=== PATIENT | male | born 1980 | race Hispanic/Latino ===

== ENCOUNTER 2023-12-28 09:30 | Inpatient (IN) | payer OTHER ==
[2023-12-28] VITALS (80 sets, daily range): BP systolic 82–200; BP diastolic 36–162; PULSE 65–101; RESP 10–34; TEMP 97.8–99.2; O2SAT 96–100
[~2023-12-28] VITALS: Ht 180.3 cm; Wt 68.9 kg
[2023-12-28] MEDS: ASPIRIN 325MG TAB PO ONE (09:55)
[2023-12-28 09:56] LABS: BASOPHILS # (AUTO) 0.06 K/uL (0.00-0.20); BASOPHILS % (AUTO) 0.7 % (0.0-5.0); EOSINOPHILS # (AUTO) 0.33 K/uL (0.00-0.70); EOSINOPHILS % (AUTO) 3.7 % (0.0-8.0); HEMATOCRIT 53.9 % (42-54); IMMATURE GRANULOCYTE ABSOLUTE 0.03 K/uL (0-1); LYMPHOCYTES # (AUTO) 1.3 K/uL (1.0-4.8); LYMPHOCYTES % (AUTO) 14.9 % (21.0-51.0); MEAN CORPUSCULAR HEMOGLOBIN 32.1 pg (27.0-33.0); MEAN CORPUSCULAR HGB CONC 33.2 g/dL (32.0-36.0); MEAN CORPUSCULAR VOLUME 96.6 fL (79-99); MONOCYTES # (AUTO) 0.8 K/uL (0.1-1.0); MONOCYTES % (AUTO) 9.1 % (3.0-13.0); NEUTROPHILS # (AUTO) 6.4 K/uL (1.8-7.7); NEUTROPHILS % (AUTO) 71.3 % (40.0-77.0); PLATELET COUNT (AUTO) 209 K/uL (130-400); RED BLOOD CELL COUNT(AUTO) 5.58 MIL/uL (4.50-6.20); RED CELL DISTRIBUTION WIDTH 12.9 % (11.0-15.5)
[2023-12-28] MEDS: LORAZEPAM 2 MG/ML 1 ML VIAL IVP ONE (09:56)
[2023-12-28 10:09] LABS: POTASSIUM 3.6 mmol/L (3.5-5.1)
[2023-12-28] MEDS ORDERED: LIDOCAINE HCL 400MG/20ML VIAL ONE (10:25)
[2023-12-28] MEDS ORDERED: LIDOCAINE PF 100MG/5ML (2%) SYRINGE 5ML ONE (10:25)
[2023-12-28] MEDS ORDERED: PROPOFOL 10 MG/ML 20ML VIAL IV ONE ×2 (10:25→12:08)
[2023-12-28] MEDS ORDERED: SUCCINYLCHOLINE CHLORIDE 20 MG/ML 10 ML VIAL ONE (10:25)
[2023-12-28] MEDS ORDERED: IOHEXOL 350 MG/ML 100ML INFUS..BTL IV ONE (10:26)
[2023-12-28] MEDS ORDERED: FENTANYL CITRATE PF 50 MCG/1 ML 2ML VIAL ONE (10:26)
[2023-12-28] MEDS ORDERED: HEPARIN 10,000 UNIT/10ML (1,000 UNIT/ML) VIAL ONE (10:26)
[2023-12-28] MEDS ORDERED: NITROGLYCERIN 50MG VIAL ONE (10:26)
[2023-12-28] MEDS ORDERED: IOHEXOL-350 75 ML VIAL IV ONE (10:26)
[2023-12-28] MEDS ORDERED: ROCURONIUM BROMIDE 10MG/1ML 5ML VL ONE ×2 (10:26→12:09)
[2023-12-28] MEDS ORDERED: NICARDIPINE 25MG INJ IV ONE (10:27)
[2023-12-28] MEDS ORDERED: SODIUM BICARB 50MEQ 50ML VIAL 50 ML ONE (10:28)
[2023-12-28] MEDS ORDERED: ONDANSETRON 4MG INJ ONE (10:33)
[2023-12-28 10:38] LABS: SARS-CoV-2, RNA, NAAT NEGATIVE SARS CoV-2 (NEGATIVE)
[2023-12-28 10:41] LABS: INFLUENZA TYPE A Negative For Type A (NEGATIVE); INFLUENZA TYPE B Negative For Type B (NEGATIVE)
[2023-12-28] MEDS ORDERED: DOPAMINE HCL 400 MG/D5%-WATER 0 ML IV ONE (10:45)
[2023-12-28] MEDS ORDERED: ATROPINE 1MG SYG IVP ONE (10:45)
[2023-12-28 10:54] LABS: B-TYPE NATRIURETIC PEPTIDE 625 pg/mL (0-100)
[2023-12-28] MEDS ORDERED: NOREPINEPHRINE BITARTRATE 1 MG/1 ML ML IV ONE (11:02)
[2023-12-28 11:48] LABS: INR 1.01 (0.85-1.15); PROTHROMBIN TIME 11.9 SEC (9.6-11.6)
[2023-12-28 11:50] LABS: PARTIAL THROMBOPLASTIN TIME 29.6 SEC (26.3-35.5)
[2023-12-28] MEDS: FUROSEMIDE 20MG VIAL ONE (13:51)
[2023-12-28] MEDS: ENALAPRILAT DIHYDRATE 1.25 MG/ML 2ML VIAL IVP ONE (13:51)
[2023-12-28] MEDS: PROPOFOL 1000 MG/100 ML IV STA (13:52)
[2023-12-28] MEDS: LABETALOL 20MG VIAL ONE (13:52)
[2023-12-28] MEDS: ENALAPRILAT DIHYDRATE 1.25 MG/ML 2ML VIAL IVP SCH (14:00)
[2023-12-28 14:17] LABS: ABG BASE EXCESS -6.1 mmol/L (-2.0-3.0); ABG HCO3 18.7 mmol/L (21.0-28.0); ABG OXYGEN SATURATION 94.8 % (95.0-99.0); ABG PCO2 35 mmHg (35-48); ABG PH 7.347 (7.35-7.450); CARBON MONOXIDE 2.3; HHb 5.1; VENT MODE, BG AC (ROOM AIR)
[2023-12-28 15:10] LABS: ALBUMIN 2.8 g/dL (3.5-5.0); BILIRUBIN,DIRECT 0.1 mg/dL (0.0-0.3); BILIRUBIN,TOTAL 0.6 mg/dL (0.2-1.0); THYROID STIMULATING HORMONE 2.08 uIU/mL (0.36-3.74); TOTAL PROTEIN, SERUM 5.6 g/dL (6.0-8.3)
[2023-12-28 15:24] LABS: APPEARANCE,URINE CLEAR (CLEAR); BILIRUBIN,URINE NEGATIVE (NEGATIVE); COLOR,URINE COLORLESS (YELLOW); GLUCOSE, URINE (UA) NEGATIVE (NEGATIVE); KETONES,URINE NEGATIVE (NEGATIVE); LEUKOCYTE ESTERASE ,URINE NEGATIVE Leu/uL (NEGATIVE); NITRATE,URINE NEGATIVE (NEGATIVE); OCCULT BLOOD,URINE MODERATE (NEGATIVE); PROTEIN,URINE NEGATIVE (NEGATIVE); UROBILINOGEN,URINE 0.2 mg/dL (0.2-1.0)
[2023-12-28] MEDS: SODIUM BICARB 50MEQ 50ML VIAL 50 ML ONE (15:30)
[2023-12-28] MEDS: FUROSEMIDE 20MG VIAL IV ONE (15:30)
[2023-12-28] MEDS: LABETALOL 20MG SYG IV ONE (15:30)
[2023-12-28] MEDS: SODIUM BICARB 50MEQ 50ML VIAL IV ONE (15:31)
[2023-12-28 15:37] LABS: ADD UA MICROSCOPIC YES
[2023-12-28 15:38] LABS: AMPHET/METH SCREEN,URINE NEGATIVE (NEGATIVE); BARBITURATE SCREEN, URINE NEGATIVE (NEGATIVE); BENZODIAZEPINES SCREEN,URINE NEGATIVE (NEGATIVE); CANNABINOID SCREEN,URINE NEGATIVE (NEGATIVE); COCAINE SCREEN,URINE POSITIVE (NEGATIVE); OPIATE SCREEN,URINE NEGATIVE (NEGATIVE); PHENCYCLIDINE SCREEN,URINE NEGATIVE (NEGATIVE)
[2023-12-28 15:46] LABS: SQUAMOUS EPITHELIAL CELL,UR RARE /HPF (0-2); WBC,URINE 0-1 /HPF (0-1)
[2023-12-28 16:08] LABS: HEMOGLOBIN A1C 5.5 % (4.0-6.0)
[2023-12-28] MEDS: PROPOFOL 1000 MG/100 ML IV PRN (17:27)
[2023-12-28] MEDS: MIDAZOLAM 50MG-0.9% NS 50ML 50 ML IV SCH (17:27)
[2023-12-28] MEDS: POTASSIUM CHLORIDE 20MEQ/100ML 100 ML IV PRN (18:46)
[2023-12-28] MEDS: BUDESONIDE 0.5 MG/2 ML INH IH SCH (19:19)
[2023-12-28] MEDS ORDERED: FUROSEMIDE 20MG VIAL IV ONE (20:00)
[2023-12-28] MEDS ORDERED: FUROSEMIDE 20MG VIAL IV SCH (20:00)
[2023-12-28] MEDS: FAMOTIDINE 20MG VIAL IV SCH (20:34)
[2023-12-28 21:23] LABS: CREATININE 0.8 mg/dL (0.5-1.3); MAGNESIUM 1.8 mg/dL (1.80-2.40); POTASSIUM 3.7 mmol/L (3.5-5.1)
[2023-12-29] VITALS (105 sets, daily range): BP systolic 110–167; BP diastolic 69–117; PULSE 64–112; RESP 14–50; TEMP 98.3–98.6; O2SAT 93–100
[2023-12-29] MEDS: HEPARIN 5,000 UNIT VIAL SQ SCH (04:15)
[2023-12-29] MEDS: CHLORHEXIDINE GLUCONATE 15 ML MOUTHWASH MM SCH (04:15)
[2023-12-29 04:34] LABS: HEMATOCRIT 46.3 % (42-54); MEAN CORPUSCULAR HEMOGLOBIN 32.8 pg (27.0-33.0); MEAN CORPUSCULAR HGB CONC 32.4 g/dL (32.0-36.0); MEAN CORPUSCULAR VOLUME 101.3 fL (79-99); RED BLOOD CELL COUNT(AUTO) 4.57 MIL/uL (4.50-6.20); RED CELL DISTRIBUTION WIDTH 13.1 % (11.0-15.5); WHITE BLOOD COUNT (AUTO) 11.9 K/uL (4.8-10.8)
[2023-12-29 04:48] LABS: ALBUMIN 2.8 g/dL (3.5-5.0); BILIRUBIN,DIRECT 0.1 mg/dL (0.0-0.3); BILIRUBIN,TOTAL 0.8 mg/dL (0.2-1.0); CREATININE 1.2 mg/dL (0.5-1.3); MAGNESIUM 1.9 mg/dL (1.80-2.40); POTASSIUM 3.7 mmol/L (3.5-5.1); TOTAL PROTEIN, SERUM 5.6 g/dL (6.0-8.3)
[2023-12-29 07:57] LABS: ABG BASE EXCESS -3.9 mmol/L (-2.0-3.0); ABG HCO3 20.8 mmol/L (21.0-28.0); ABG OXYGEN SATURATION 98.6 % (95.0-99.0); ABG PCO2 37 mmHg (35-48); ABG PH 7.366 (7.35-7.450); DEVICE COMMENT ISAAC RN; PO2, ARTERIAL BG 133.4 mmHg (83.0-108.0); VENT MODE, BG AC (ROOM AIR)
[2023-12-29] MEDS ORDERED: METOPROLOL TARTRATE 1 MG/ML 5ML VIAL IV PRN (10:30)
[2023-12-29] MEDS: METOPROLOL TARTRATE 1 MG/ML 5ML VIAL IV ONE (11:43)
[2023-12-29] MEDS: FUROSEMIDE 20MG VIAL IV ONE (11:43)
[2023-12-29] MEDS ORDERED: IOHEXOL 350 MG/ML 100ML INFUS..BTL IV ONE (13:58)
[2023-12-29] MEDS: CLONAZEPAM 1MG TAB PO PRN (18:57)
[2023-12-29] MEDS: FUROSEMIDE 20MG VIAL IV SCH (18:57)
[2023-12-29] MEDS: ACETAMINOPHEN 650 MG/20.3 ML UDCUP NG PRN (20:03)
[2023-12-29] MEDS: ARTIFICIAL TEARS 3.5 GM OINTMENT OU SCH (20:47)
[2023-12-29] MEDS ORDERED: PHARMACY COMMUNICATION MISC PRN (21:30)
[2023-12-29] MEDS: POTASSIUM CHLORIDE 10% ELIXIR 20 MEQ/15 ML UDCUP PO PRN (21:37)
[2023-12-29] MEDS: GABAPENTIN 300 MG CAPSULE PO SCH (21:43)
[2023-12-29] MEDS: CHLORDIAZEPOXIDE HCL 25 MG CAP PO PRN (23:12)
[2023-12-30] VITALS (37 sets, daily range): BP systolic 126–170; BP diastolic 82–115; PULSE 77–97; RESP 13–25; TEMP 98.4–98.5; O2SAT 97–98
[2023-12-30 00:59] LABS: MAGNESIUM 1.9 mg/dL (1.80-2.40); PHOSPHORUS 4.2 mg/dL (2.5-4.9); POTASSIUM 3.9 mmol/L (3.5-5.1)
[2023-12-30] MEDS: MAGNESIUM 2GM PREMIX 50ML 50 ML IV SCH (02:10)
[2023-12-30] MEDS: POTASSIUM CHLORIDE 10MEQ SR TAB PO ONE (02:10)
[2023-12-30] MEDS: ACETAMINOPHEN 500 MG TABLET PO PRN (02:11)
[2023-12-30] MEDS: CHLORDIAZEPOXIDE HCL 25 MG CAP PO PRN (02:22)
[2023-12-30] MEDS: KCL 20 MEQ ERTAB PO PRN (07:41)
[2023-12-30] MEDS ORDERED: CALCIUM CARB 500MG CHEW TAB PO PRN (09:00)
[2023-12-30] MEDS: FAMOTIDINE 20MG TAB PO SCH (09:00)
[2023-12-30] MEDS: SIMETHICONE 80 MG TAB.CHEW PO SCH (09:29)
[2023-12-30] MEDS: METOPROLOL TARTRATE 25 MG TAB PO SCH (09:29)
[2023-12-30] MEDS: LISINOPRIL 10 MG TABLET PO SCH (09:29)
[2023-12-30] MEDS: AMIODARONE 200 MG TABLET PO SCH (12:05)
[2023-12-30] MEDS: POLYETHYLENE GLYCOL 3350 17 GM POWD.PACK PO SCH (12:08)
[2023-12-30 12:34] LABS: CREATININE 1.1 mg/dL (0.5-1.3); MAGNESIUM 2.2 mg/dL (1.80-2.40); POTASSIUM 3.8 mmol/L (3.5-5.1)
[2023-12-30] MEDS: IPRATROPIUM 0.5 MG/2.5 ML INH IH PRN (15:42)
[2023-12-30] MEDS: LORAZEPAM 2 MG/ML 1 ML VIAL IVP PRN (16:08)
[2023-12-30] MEDS: DOCUSATE NA 100MG/10ML UDCUP PO SCH (20:23)
[2023-12-31] VITALS (10 sets, daily range): BP systolic 105–127; BP diastolic 74–93; PULSE 63–82; RESP 16–22; O2SAT 98
[2023-12-31 04:55] LABS: BASOPHILS # (AUTO) 0.05 K/uL (0.00-0.20); BASOPHILS % (AUTO) 0.6 % (0.0-5.0); EOSINOPHILS # (AUTO) 0.43 K/uL (0.00-0.70); EOSINOPHILS % (AUTO) 5.3 % (0.0-8.0); HEMATOCRIT 49.4 % (42-54); IMMATURE GRANULOCYTE ABSOLUTE 0.04 K/uL (0-1); LYMPHOCYTES # (AUTO) 1.5 K/uL (1.0-4.8); LYMPHOCYTES % (AUTO) 18.2 % (21.0-51.0); MEAN CORPUSCULAR HEMOGLOBIN 32.1 pg (27.0-33.0); MEAN CORPUSCULAR VOLUME 97.4 fL (79-99); MONOCYTES # (AUTO) 0.9 K/uL (0.1-1.0); MONOCYTES % (AUTO) 11.5 % (3.0-13.0); NEUTROPHILS # (AUTO) 5.2 K/uL (1.8-7.7); NEUTROPHILS % (AUTO) 63.9 % (40.0-77.0); PLATELET COUNT (AUTO) 136 K/uL (130-400); RED BLOOD CELL COUNT(AUTO) 5.07 MIL/uL (4.50-6.20); RED CELL DISTRIBUTION WIDTH 12.6 % (11.0-15.5); WHITE BLOOD COUNT (AUTO) 8.1 K/uL (4.8-10.8)
[2023-12-31 05:08] LABS: CREATININE 1.4 mg/dL (0.5-1.3); MAGNESIUM 2.1 mg/dL (1.80-2.40); POTASSIUM 3.7 mmol/L (3.5-5.1)
[2023-12-31 05:43] LABS: B-TYPE NATRIURETIC PEPTIDE 412 pg/mL (0-100)
[2023-12-31 06:38] LABS: APPEARANCE,URINE CLEAR (CLEAR); BILIRUBIN,URINE NEGATIVE (NEGATIVE); COLOR,URINE YELLOW (YELLOW); GLUCOSE, URINE (UA) NEGATIVE (NEGATIVE); KETONES,URINE NEGATIVE (NEGATIVE); LEUKOCYTE ESTERASE ,URINE 25 Leu/uL (NEGATIVE); NITRATE,URINE NEGATIVE (NEGATIVE); OCCULT BLOOD,URINE MODERATE (NEGATIVE); PH,URINE 5.5 (5.0-8.0); PROTEIN,URINE 20 mg/dL (NEGATIVE)
[2023-12-31 07:27] LABS: BACTERIA,URINE FEW /HPF (None Seen); MUCUS,URINE RARE LPF (None Seen); RBC,URINE TNTC /HPF (0-1); SQUAMOUS EPITHELIAL CELL,UR RARE /HPF (0-2)
[2023-12-31] MEDS: FUROSEMIDE 20MG VIAL IV SCH (20:56)
[2023-12-31] MEDS: GABAPENTIN 100 MG CAPSULE PO PRN (20:57)
[2023-12-31] MEDS: ONDANSETRON 4MG INJ IV PRN (23:34)
[2024-01-01] VITALS (8 sets, daily range): BP systolic 98–130; BP diastolic 70–93; PULSE 63–88; RESP 18–20; O2SAT 98–99
[2024-01-01] MEDS: OLANZAPINE 10MG/ML 1ML VIAL IM ONE (15:36)
[2024-01-01] MEDS: OLANZAPINE ODT 5 MG TAB SL SCH (16:34)
[2024-01-02] VITALS (11 sets, daily range): BP systolic 91–125; BP diastolic 57–82; PULSE 63–82; RESP 17–20; O2SAT 21–99
[2024-01-02] MEDS: EMPAGLIFLOZIN 10MG TABLET PO SCH (11:36)
[2024-01-02] MEDS: SPIRONOLACTONE 25 MG TAB PO SCH (11:37)
[2024-01-02] MEDS: LORAZEPAM 2 MG/ML 1 ML VIAL IVP PRN (13:00)
[2024-01-02] MEDS ORDERED: DIAZEPAM 5 MG/ML 2 ML SYG IVP PRN ×2 (18:00)
[2024-01-03 00:51] VITALS: BP 102/58; PULSE 70; RESP 18
[2024-01-03 03:27] VITALS: BP 100/62; PULSE 60; RESP 18
[2024-01-03 07:09] VITALS: PULSE 60; RESP 19; O2SAT 95
[2024-01-03 07:33] VITALS: BP 106/62; PULSE 72; RESP 17
[2024-01-03 08:00] VITALS: O2SAT 97
[2024-01-03 08:32] LABS: CREATININE 1.1 mg/dL (0.5-1.3); POTASSIUM 3.9 mmol/L (3.5-5.1)
[2024-01-03] MEDS ORDERED: FUROSEMIDE 20 MG TABLET PO SCH (09:00)
[2024-01-03 12:09] VITALS: BP 108/62; PULSE 78; RESP 17
[2024-01-04] MEDS ORDERED: FUROSEMIDE 40 MG TABLET PO SCH (09:00)
== END 2024-01-03 15:30 | DRG 280 ==
LOC: EDH 09:30 → EDHIP 09:31 → 2CV 12:00 → 2CH 12-29 14:53 → 2AH 12-30 13:40
PROVIDERS: ADMIT Internal Medicine; ATTEND Internal Medicine
PROC: 4A023N6 Measurement of Cardiac Sampling and Pressure, Right Heart, Percutaneous Approach (ICD-10-PCS; principal; 2023-12-28)
PROC: B2111ZZ Fluoroscopy of Multiple Coronary Arteries using Low Osmolar Contrast (ICD-10-PCS; 2023-12-28)
DX: I21.09 ST elevation (STEMI) myocardial infarction involving other coronary artery of anterior wall (principal); I50.43 Acute on chronic combined systolic (congestive) and diastolic (congestive) heart failure; J96.01 Acute respiratory failure with hypoxia; R57.0 Cardiogenic shock; I42.8 Other cardiomyopathies; F10.139 Alcohol abuse with withdrawal, unspecified; G81.94 Hemiplegia, unspecified affecting left nondominant side; R45.851 Suicidal ideations; Z59.00 Homelessness unspecified; I11.0 Hypertensive heart disease with heart failure; Z20.822 Contact with and (suspected) exposure to COVID-19; E78.5 Hyperlipidemia, unspecified; F14.10 Cocaine abuse, uncomplicated; F29 Unspecified psychosis not due to a substance or known physiological condition; I25.10 Atherosclerotic heart disease of native coronary artery without angina pectoris; I25.2 Old myocardial infarction; Z72.0 Tobacco use; Z95.810 Presence of automatic (implantable) cardiac defibrillator; Z91.148 Patient's other noncompliance with medication regimen for other reason
CPT/HCPCS: 36415; 70450; 70496; 70498; 71045; 74018; 76376; 80048; 80061; 80076; 80305; 81001; 82306; 82330; 82435; 82550; 82803; 82947; 82948; 83036; 83605; 83735; 83880; 84100; 84132; 84295; 84425; 84443; 84484; 85018; 85025; 85027; 85610; 85730; 87040; 87088; 87635; 87804; 93005; 93306; 93356; 93456; 94002; 94003; 94640; 94664; 99291; C1894; G0378; J0330; J0461; J1265; J1644; J1940; J2001; J2060; J2405; J2704; J3010; J3475; J3480; J3490; Q9967; A9900; C1769; Q9965

== ENCOUNTER 2024-03-08 11:40 | Inpatient (IN) | payer SELFPAY ==
[~2024-03-08] VITALS: Ht 180.3 cm; Wt 69.5 kg
[2024-03-08 12:32] LABS: BASOPHILS # (AUTO) 0.07 K/uL (0.00-0.20); BASOPHILS % (AUTO) 0.8 % (0.0-5.0); EOSINOPHILS # (AUTO) 0.39 K/uL (0.00-0.70); EOSINOPHILS % (AUTO) 4.6 % (0.0-8.0); HEMATOCRIT 50.4 % (42-54); IMMATURE GRANULOCYTE ABSOLUTE 0.11 K/uL (0-1); LYMPHOCYTES # (AUTO) 1.5 K/uL (1.0-4.8); LYMPHOCYTES % (AUTO) 17.3 % (21.0-51.0); MEAN CORPUSCULAR HGB CONC 33.9 g/dL (32.0-36.0); MEAN CORPUSCULAR VOLUME 94.2 fL (79-99); MONOCYTES # (AUTO) 0.7 K/uL (0.1-1.0); MONOCYTES % (AUTO) 8.6 % (3.0-13.0); NEUTROPHILS # (AUTO) 5.7 K/uL (1.8-7.7); NEUTROPHILS % (AUTO) 67.4 % (40.0-77.0); PLATELET COUNT (AUTO) 228 K/uL (130-400); RED BLOOD CELL COUNT(AUTO) 5.35 MIL/uL (4.50-6.20); RED CELL DISTRIBUTION WIDTH 13.6 % (11.0-15.5); WHITE BLOOD COUNT (AUTO) 8.5 K/uL (4.8-10.8)
[2024-03-08] MEDS: ASPIRIN 325MG TAB PO ONE (12:36)
[2024-03-08] MEDS: CLONIDINE HCL 0.1 MG TABLET PO ONE (12:48)
[2024-03-08 12:50] LABS: CREATININE 0.9 mg/dL (0.5-1.3); POTASSIUM 4.4 mmol/L (3.5-5.1)
[2024-03-08 12:57] LABS: B-TYPE NATRIURETIC PEPTIDE 739 pg/mL (0-100)
[2024-03-08 12:58] LABS: MAGNESIUM 2.1 mg/dL (1.80-2.40)
[2024-03-08] MEDS: FUROSEMIDE 20MG VIAL IV ONE (13:27)
[2024-03-08] MEDS: FUROSEMIDE 20MG VIAL ONE (13:44)
[2024-03-08 13:50] LABS: APPEARANCE,URINE CLEAR (CLEAR); BILIRUBIN,URINE NEGATIVE (NEGATIVE); COLOR,URINE LIGHT-YELLOW (YELLOW); GLUCOSE, URINE (UA) NEGATIVE (NEGATIVE); KETONES,URINE NEGATIVE (NEGATIVE); LEUKOCYTE ESTERASE ,URINE NEGATIVE Leu/uL (NEGATIVE); NITRATE,URINE NEGATIVE (NEGATIVE); OCCULT BLOOD,URINE NEGATIVE (NEGATIVE); PROTEIN,URINE NEGATIVE (NEGATIVE); UROBILINOGEN,URINE 0.2 mg/dL (0.2-1.0)
[2024-03-08 13:56] LABS: ADD UA MICROSCOPIC NO
[2024-03-08 13:58] LABS: AMPHET/METH SCREEN,URINE NEGATIVE (NEGATIVE); BARBITURATE SCREEN, URINE NEGATIVE (NEGATIVE); BENZODIAZEPINES SCREEN,URINE NEGATIVE (NEGATIVE); CANNABINOID SCREEN,URINE NEGATIVE (NEGATIVE); COCAINE SCREEN,URINE POSITIVE (NEGATIVE); OPIATE SCREEN,URINE NEGATIVE (NEGATIVE); PHENCYCLIDINE SCREEN,URINE NEGATIVE (NEGATIVE)
[2024-03-08] MEDS ORDERED: POTASSIUM CHLORIDE 20MEQ/100ML 100 ML IV PRN (15:30)
[2024-03-08] MEDS ORDERED: MAGNESIUM 2GM PREMIX 50ML 50 ML IV PRN (15:30)
[2024-03-08] MEDS ORDERED: POTASSIUM CHLORIDE 10% ELIXIR 20 MEQ/15 ML UDCUP PO PRN (15:30)
[2024-03-08] MEDS: LISINOPRIL 10 MG TABLET PO ONE (16:37)
[2024-03-08] MEDS: NITROGLYCERIN 1GM OINT 1 INCH/1GM TD ONE (16:40)
[2024-03-08] MEDS: FUROSEMIDE 40MG VIAL IV SCH (17:52)
[2024-03-08] MEDS: LACTULOSE 20 GM/30 ML UDCUP PO ONE (19:22)
[2024-03-08] MEDS ORDERED: carVEDIlol 3.125 MG TABLET PO SCH (21:00)
[2024-03-08] MEDS: LORazepam 2 MG/ML 1 ML VIAL IVP ONE (21:18)
[2024-03-08] MEDS ORDERED: PHARMACY COMMUNICATION MISC PRN (23:00)
[2024-03-09] VITALS (8 sets, daily range): BP systolic 103–136; BP diastolic 76–92; PULSE 76–95; RESP 15–22; O2SAT 98–100
[2024-03-09] MEDS: chlordiazePOXIDE HCL 25 MG CAP PO PRN (03:06)
[2024-03-09 07:04] LABS: BASOPHILS # (AUTO) 0.05 K/uL (0.00-0.20); BASOPHILS % (AUTO) 0.7 % (0.0-5.0); EOSINOPHILS # (AUTO) 0.34 K/uL (0.00-0.70); EOSINOPHILS % (AUTO) 4.6 % (0.0-8.0); HEMATOCRIT 48.5 % (42-54); IMMATURE GRANULOCYTE ABSOLUTE 0.09 K/uL (0-1); LYMPHOCYTES # (AUTO) 1.2 K/uL (1.0-4.8); LYMPHOCYTES % (AUTO) 16.9 % (21.0-51.0); MEAN CORPUSCULAR HEMOGLOBIN 32.3 pg (27.0-33.0); MEAN CORPUSCULAR HGB CONC 34.2 g/dL (32.0-36.0); MEAN CORPUSCULAR VOLUME 94.4 fL (79-99); MONOCYTES # (AUTO) 0.9 K/uL (0.1-1.0); MONOCYTES % (AUTO) 11.6 % (3.0-13.0); NEUTROPHILS # (AUTO) 4.8 K/uL (1.8-7.7); PLATELET COUNT (AUTO) 212 K/uL (130-400); RED BLOOD CELL COUNT(AUTO) 5.14 MIL/uL (4.50-6.20); RED CELL DISTRIBUTION WIDTH 13.6 % (11.0-15.5); WHITE BLOOD COUNT (AUTO) 7.3 K/uL (4.8-10.8)
[2024-03-09 07:25] LABS: B-TYPE NATRIURETIC PEPTIDE 311 pg/mL (0-100)
[2024-03-09 07:37] LABS: CREATININE 1.2 mg/dL (0.5-1.3); POTASSIUM 3.5 mmol/L (3.5-5.1)
[2024-03-09] MEDS: LISINOPRIL 10 MG TABLET PO SCH (09:17)
[2024-03-09] MEDS: KCL 20 MEQ ERTAB PO PRN (09:18)
[2024-03-09] MEDS: LACTULOSE 20 GM/30 ML UDCUP PO PRN (11:51)
[2024-03-09] MEDS: EMPAGLIFLOZIN 10MG TABLET PO ONE (15:35)
[2024-03-09] MEDS: AMIOdarone 200 MG TABLET PO ONE (15:35)
[2024-03-09] MEDS: SPIRONOLACTONE 25 MG TAB PO ONE (15:35)
[2024-03-09] MEDS: AMIOdarone 200 MG TABLET PO SCH (20:29)
[2024-03-10] MEDS: LORazepam 2 MG/ML 1 ML VIAL IVP PRN (03:49)
[2024-03-10 03:54] VITALS: BP 140/105; PULSE 90; RESP 19
[2024-03-10 04:48] LABS: HEMATOCRIT 46.3 % (42-54); MEAN CORPUSCULAR HEMOGLOBIN 32.3 pg (27.0-33.0); MEAN CORPUSCULAR HGB CONC 33.9 g/dL (32.0-36.0); MEAN CORPUSCULAR VOLUME 95.3 fL (79-99); RED BLOOD CELL COUNT(AUTO) 4.86 MIL/uL (4.50-6.20); RED CELL DISTRIBUTION WIDTH 13.7 % (11.0-15.5); WHITE BLOOD COUNT (AUTO) 8.6 K/uL (4.8-10.8)
[2024-03-10 05:00] LABS: CREATININE 1.5 mg/dL (0.5-1.3); POTASSIUM 3.7 mmol/L (3.5-5.1)
[2024-03-10 08:00] VITALS: BP 133/97; PULSE 82; RESP 18; O2SAT 100
[2024-03-10] MEDS: AMIOdarone 200 MG TABLET PO SCH (08:04)
[2024-03-10] MEDS: EMPAGLIFLOZIN 10MG TABLET PO SCH (08:04)
[2024-03-10] MEDS: SPIRONOLACTONE 25 MG TAB PO SCH (08:05)
[2024-03-10 12:00] VITALS: BP 111/65; PULSE 66; RESP 16
[2024-03-10] MEDS ORDERED: COMPOUND IV REFRIGERATED 1 EACH IVSOLN MISC PRN (12:30)
[2024-03-10] MEDS ORDERED: COMPOUND IV MISC 1 EACH IVSOLN MISC PRN (12:30)
[2024-03-10 16:00] VITALS: BP 115/79; PULSE 75; RESP 20
[2024-03-10 19:00] VITALS: BP 116/81; PULSE 71; RESP 20
[2024-03-10 21:20] VITALS: O2SAT 99
[2024-03-11] VITALS: BP 117/89; PULSE 74; RESP 20
[2024-03-11] MEDS ORDERED: acetaMINOPHEN 500 MG TABLET PO PRN (01:30)
[2024-03-11 04:00] VITALS: BP 113/80; PULSE 60; RESP 20
[2024-03-11 08:00] VITALS: BP 112/81; PULSE 68; RESP 14; O2SAT 100
[2024-03-11] MEDS: FUROSEMIDE 40MG VIAL IV SCH (08:40)
[2024-03-11] MEDS: THIAMINE HCL 100 MG/ML 2ML VIAL IVP SCH (08:40)
[2024-03-11] MEDS ORDERED: FOLIC ACID 5 MG/ML VIAL IV SCH (09:00)
[2024-03-11] MEDS ORDERED: AMIO200T44 PO (09:21)
[2024-03-11] MEDS ORDERED: EMPA10TA PO (09:21)
[2024-03-11] MEDS ORDERED: LISI10TA24 PO (09:21)
[2024-03-11] MEDS ORDERED: FURO40TA7 PO (09:21)
[2024-03-11 09:28] LABS: BASOPHILS # (AUTO) 0.05 K/uL (0.00-0.20); BASOPHILS % (AUTO) 0.7 % (0.0-5.0); EOSINOPHILS # (AUTO) 0.32 K/uL (0.00-0.70); EOSINOPHILS % (AUTO) 4.5 % (0.0-8.0); HEMATOCRIT 53.3 % (42-54); IMMATURE GRANULOCYTE ABSOLUTE 0.05 K/uL (0-1); LYMPHOCYTES # (AUTO) 1.2 K/uL (1.0-4.8); LYMPHOCYTES % (AUTO) 16.7 % (21.0-51.0); MEAN CORPUSCULAR HEMOGLOBIN 31.8 pg (27.0-33.0); MEAN CORPUSCULAR HGB CONC 32.6 g/dL (32.0-36.0); MEAN CORPUSCULAR VOLUME 97.3 fL (79-99); MONOCYTES # (AUTO) 0.6 K/uL (0.1-1.0); MONOCYTES % (AUTO) 7.9 % (3.0-13.0); NEUTROPHILS # (AUTO) 4.9 K/uL (1.8-7.7); NEUTROPHILS % (AUTO) 69.5 % (40.0-77.0); PLATELET COUNT (AUTO) 217 K/uL (130-400); RED BLOOD CELL COUNT(AUTO) 5.48 MIL/uL (4.50-6.20); RED CELL DISTRIBUTION WIDTH 13.6 % (11.0-15.5); WHITE BLOOD COUNT (AUTO) 7.1 K/uL (4.8-10.8)
[2024-03-11 09:41] LABS: CREATININE 1.4 mg/dL (0.5-1.3); MAGNESIUM 2.3 mg/dL (1.80-2.40); POTASSIUM 3.5 mmol/L (3.5-5.1)
== END 2024-03-11 13:00 | disposition home or self-care (01) | DRG 291 ==
LOC: EDH 11:40 → EDHIP 15:24 → 4CH 03-09 02:23
PROVIDERS: ADMIT Internal Medicine; ATTEND Internal Medicine
DX: I11.0 Hypertensive heart disease with heart failure (principal); I50.41 Acute combined systolic (congestive) and diastolic (congestive) heart failure; Z59.00 Homelessness unspecified; I47.20 Ventricular tachycardia, unspecified; I42.8 Other cardiomyopathies; F12.10 Cannabis abuse, uncomplicated; F19.10 Other psychoactive substance abuse, uncomplicated; F14.10 Cocaine abuse, uncomplicated; Z59.7 Insufficient social insurance and welfare support; Z59.86 Financial insecurity; Z79.84 Long term (current) use of oral hypoglycemic drugs; Z79.899 Other long term (current) drug therapy; Z95.810 Presence of automatic (implantable) cardiac defibrillator
CPT/HCPCS: 36415; 71045; 74176; 80048; 80305; 81003; 82550; 83605; 83690; 83735; 83880; 84145; 84443; 84484; 85025; 85027; 85378; 85730; 87040; 93005; 93306; 93356; G0378; J1940; J2060; J3411; J3490

== ENCOUNTER 2024-07-23 20:35 | Emergency (ER) | payer BC, OTHER ==
[~2024-07-23] VITALS: Ht 177.8 cm; Wt 72.1 kg
[~2024-07-23 20:35] MED LIST: AMIO200T68 PO; DAPA10TA PO; FURO40TA5 PO; LISI10TA24 PO
[2024-07-23 21:13] VITALS: TEMP 97.7
--- NOTE | 2024-07-23 21:42 | EKG ---
[facility] Test Date: 2024-07-23 Test Time: 21:30:11 Pat Name: GOLDIE CUNNINGHAM Department: ED Room: Gender: M Manager Cafe: [id number] : 1980 Requested By: ARISTIDES HENRY Order Number: [id number] Reading MD: Bennie Kimble Measurements Intervals [place] Rate: 93 P: 61 [place]: 143 QRS: 26 QRSD: 116 T: 190 QT: 408 QTc: 510 Interpretive Statements Sinus rhythm Biatrial enlargement Left ventricular hypertrophy Anterior infarct, old Abnormal T, consider ischemia, diffuse leads Prolonged QT interval Electronically Signed On 07-25-2024 12:16:03 UNBUNDLER by Bennie Kimble Please click the below link to view image of tracing.
[2024-07-23 22:04] LABS: BASOPHILS # (AUTO) 0.05 K/uL (0.00-0.20); BASOPHILS % (AUTO) 0.6 % (0.0-5.0); EOSINOPHILS # (AUTO) 0.15 K/uL (0.00-0.70); EOSINOPHILS % (AUTO) 1.7 % (0.0-8.0); HEMATOCRIT 40.9 % (42-54); IMMATURE GRANULOCYTE ABSOLUTE 0.05 K/uL (0-1); LYMPHOCYTES # (AUTO) 0.9 K/uL (1.0-4.8); LYMPHOCYTES % (AUTO) 10.6 % (21.0-51.0); MEAN CORPUSCULAR HEMOGLOBIN 33.8 pg (27.0-33.0); MEAN CORPUSCULAR HGB CONC 34.5 g/dL (32.0-36.0); MEAN CORPUSCULAR VOLUME 98.1 fL (79-99); MONOCYTES # (AUTO) 0.8 K/uL (0.1-1.0); MONOCYTES % (AUTO) 8.8 % (3.0-13.0); NEUTROPHILS # (AUTO) 6.8 K/uL (1.8-7.7); NEUTROPHILS % (AUTO) 77.7 % (40.0-77.0); PLATELET COUNT (AUTO) 212 K/uL (130-400); RED BLOOD CELL COUNT(AUTO) 4.17 MIL/uL (4.50-6.20); RED CELL DISTRIBUTION WIDTH 12.7 % (11.0-15.5); WHITE BLOOD COUNT (AUTO) 8.7 K/uL (4.8-10.8)
--- NOTE | 2024-07-23 22:08 | HMCIMG ---
CHEST 1VW CLINICAL HISTORY: sob COMPARISON: 06/21/2024 TECHNIQUE: Single view of the chest was obtained. FINDINGS: The cardiac size is enlarged and there is mild pulmonary vascular congestion. The bony structures stable. The pacemaker leads are unchanged. IMPRESSION: Findings concerning for mild congestive heart failure.
[2024-07-23 22:16] LABS: CREATININE 1.1 mg/dL (0.5-1.3); POTASSIUM 4.1 mmol/L (3.5-5.1)
[2024-07-23 22:19] LABS: INR 1.02 (0.85-1.15); PROTHROMBIN TIME 11.4 SEC (9.6-11.6)
[2024-07-23 22:20] LABS: PARTIAL THROMBOPLASTIN TIME 29.8 SEC (26.3-35.5)
[2024-07-23 22:25] LABS: B-TYPE NATRIURETIC PEPTIDE 697 pg/mL (0-100)
[2024-07-23] MEDS: furoSEMIDE 20MG VIAL IV ONE (23:21)
[2024-07-24 00:20] LABS: APPEARANCE,URINE CLEAR (CLEAR); BILIRUBIN,URINE NEGATIVE (NEGATIVE); COLOR,URINE LIGHT-YELLOW (YELLOW); GLUCOSE, URINE (UA) NEGATIVE (NEGATIVE); KETONES,URINE NEGATIVE (NEGATIVE); LEUKOCYTE ESTERASE ,URINE NEGATIVE Leu/uL (NEGATIVE); NITRATE,URINE NEGATIVE (NEGATIVE); OCCULT BLOOD,URINE NEGATIVE (NEGATIVE); PH,URINE 5.5 (5.0-8.0); PROTEIN,URINE NEGATIVE (NEGATIVE)
[2024-07-24 00:24] LABS: ADD UA MICROSCOPIC NO
[2024-07-24 00:28] LABS: AMPHET/METH SCREEN,URINE NEGATIVE (NEGATIVE); BARBITURATE SCREEN, URINE NEGATIVE (NEGATIVE); BENZODIAZEPINES SCREEN,URINE NEGATIVE (NEGATIVE); CANNABINOID SCREEN,URINE POSITIVE (NEGATIVE); COCAINE SCREEN,URINE POSITIVE (NEGATIVE); OPIATE SCREEN,URINE NEGATIVE (NEGATIVE); PHENCYCLIDINE SCREEN,URINE NEGATIVE (NEGATIVE)
--- NOTE | 2024-07-24 00:39 | ERN ---
General Chief Complaint: Numbness Stated Complaint: C/O SOB WITH NUMBNESS TO LEFT SIDE X LAST WK Time Seen by MD: 20:41 Source: patient History of Present Illness Initial Comments PATIENT IS A 44-YEAR-OLD MALE COMING IN TO BE EVALUATED FOR MULTIPLE COMPLAINTS. PATIENT STATES THAT HE HAD NUMBNESS IN HIS LEFT HAND WITH PAIN WELL. PATIENT ALSO STATES THAT HE HAS A HISTORY OF PULMONARY CONGESTION. SYMPTOMS BEGAN A COUPLE OF DAYS AGO. Allergies: Coded Allergies: No Known Drug Allergies (Unverified Allergy, Unknown, 12/28/23) Home Meds Reported Medications Lisinopril (Lisinopril) 10 Mg Tablet, 1 TAB PO DAILY for 30 Days, #30 TAB 0 Refills 06/22/24 Amiodarone HCl (Amiodarone HCl) 200 Mg Tablet, 1 TAB PO DAILY for 30 Days, #30 TAB 0 Refills 06/22/24 Furosemide (Furosemide) 40 Mg Tablet, 1 TAB PO DAILY for 30 Days, #30 TAB 0 Refills 06/22/24 Dapagliflozin Propanediol (Farxiga) 10 Mg Tablet, 1 TAB PO DAILY for 30 Days, #30 TAB 0 Refills 06/22/24 Past Medical History Past Medical History: Asthma, Diabetes-Type II, Hypertension Medical History Other: CA OF RT LUNG Past Surgical History: Pacer/AICD Surgical History Other: CARDIAC STENTS ROS Dictation CONSTITUTIONAL: NO CHILLS, NO FEVER, NO WEAKNESS, NO DIAPHORESIS, NO MALAISE. HEAD/FACE: NO SIGNS OF TRAUMA. EENT: NO EYE PAIN, NO BLURRED VISION, NO TEARING, NO DOUBLE VISION, NO EAR PAIN, NO EAR DISCHARGE, NO NOSE PAIN, NO NASAL CONGESTION, NO THROAT PAIN, NO THROAT SWELLING, NO MOUTH PAIN. RESPIRATORY: NO COUGH, NO ORTHOPNEA, SOB, NO STRIDOR, NO WHEEZING. CARDIOVASCULAR: NO CHEST PAIN, NO EDEMA, NO PALPITATIONS, NO SYNCOPE. GASTROINTESTINAL/ABDOMINAL: NO ABDOMINAL PAIN, NO CONSTIPATION, NO DIARRHEA, NO NAUSEA, NO VOMITING. GENITOURINARY: NO ABNORMAL DISCHARGE, NO DYSURIA, NO FREQUENT URINATION, NO HEMATURIA. NO COMPLAINTS OF PAIN IN THE GENITALS. MUSCULOSKELETAL: NO BACK PAIN, NO GOUT, NO JOINT PAIN, NO JOINT SWELLING, NO MUSCLE PAIN, NO MUSCLE STIFFNESS, NO NECK PAIN. INTEGUMENTARY: NO CHANGE IN COLOR, NO CHANGE IN HAIR/NAILS, NO DRYNESS, NO LESION, NO LUMPS, NO RASH. NEUROLOGICAL/PSYCH: NO ANXIETY, NOT DEPRESSED, NO EMOTIONAL PROBLEM, NO HEADACHE, NO NUMBNESS, NO PRE-EXISTING DEFICIT, NO HISTORY OF SEIZURES, NO TREMORS, NO WEAKNESS. HEMATOLOGIC/LYMPHATIC: NOT ANEMIC, NO HISTORY OF BLOOD CLOTS, NO APPARENT BLEEDING, NO BRUISING, GLANDS NOT SWOLLEN. ALL SYSTEMS NEGATIVE, EXCEPT NOTED. Physical Exam Physical Exam Dictation VITAL SIGNS: REVIEWED. GENERAL APPEARANCE: ALERT, ORIENTED X3, NO ACUTE DISTRESS, OBESE. HEAD AND FACE: NON-TRAUMATIC. EYES: PERRL, PINK CONJUNCTIVAS, EYELID NO TRAUMA, ANTERIOR CHAMBER CLEAR. EARS: PINNAS INTACT AND NO SIGNS OF TRAUMA OR ERYTHEMA. EAR CANALS CLEAR AND NO DISCHARGE. TMS NO ERYTHEMA. NOSE: NO DISCHARGE, NO BLEEDING. OROPHARYNX: MOUTH NORMAL, TEETH NO CARIES, TONGUE PINK. PHARYNX CLEAR, NO ERYTHEMA. TONSILS NO EXUDATES, NO ABSCESSES NOTED. MUCOUS MEMBRANE MOIST. NECK: SUPPLE, NON-TENDER, NO THYROMEGALY, NO MASSES, NO JVD, NO BRUITS. BREAST: DEFERRED. CHEST: NO TENDERNESS, NO CREPITUS, NO PARADOXICAL MOVEMENT, NO RETRACTIONS. LUNGS: CLEAR, WELL-VENTILATED, SYMMETRIC, NO RALES, NO WHEEZING, NO RHONCHI, NO STRIDOR, GOOD BREATH SOUNDS BILATERALLY. HEART: REGULAR RATE, REGULAR RHYTHM, NO MURMUR, NO GALLOPS. VASCULAR: NO PERIPHERAL EDEMA. ABDOMEN: SOFT, POSITIVE BOWEL SOUNDS, NONDISTENDED, NO GUARDING, NONTENDER, NO REBOUND, NO MASSES NO HEPATOMEGALY, NO SPLENOMEGALY, NO BURGESS'S SIGN, NO HERNIAS. RECTAL: DEFERRED. GENITAL: DEFERRED. NEUROLOGICAL: NORMAL SPEECH, GROSS MOTOR FUNCTION INTACT, GROSS SENSORY FUNCTION INTACT. MUSCULOSKELETAL: NECK NONTENDER, FULL RANGE OF MOTION, BACK NONTENDER, FULL RANGE OF MOTION. EXTREMITIES: NONTENDER, FULL RANGE OF MOTION. SKIN: COLOR PINK, DRY, NO TURGOR, NO RASH, NO LACERATIONS, NO ABRASIONS, NO CONTUSIONS. LYMPHATICS: DEFERRED. Results Laboratory and Microbiology Lab and Micro Result Laboratory Tests Test 07/23/24 21:54 07/24/24 00:09 White Blood Count 8.7 K/uL (4.8-10.8) Red Blood Count 4.17 MIL/uL (4.50-6.20) L Hemoglobin 14.1 g/dL (14.0-18.0) Hematocrit 40.9 % (42-54) L Mean Corpuscular Volume 98.1 fL (79-99) Mean Corpuscular Hemoglobin 33.8 pg (27.0-33.0) H Mean Corpuscular Hemoglobin Concent 34.5 g/dL (32.0-36.0) Red Cell Distribution Width 12.7 % (11.0-15.5) Platelet Count 212 K/uL (130-400) Mean Platelet Volume 11.7 fL (7.5-10.5) H Immature Granulocyte % (Auto) 0.6 % (0-1) Neutrophils (%) (Auto) 77.7 % (40.0-77.0) H Lymphocytes (%) (Auto) 10.6 % (21.0-51.0) L Monocytes (%) (Auto) 8.8 % (3.0-13.0) Eosinophils (%) (Auto) 1.7 % (0.0-8.0) Basophils (%) (Auto) 0.6 % (0.0-5.0) Neutrophils # (Auto) 6.8 K/uL (1.8-7.7) Lymphocytes # (Auto) 0.9 K/uL (1.0-4.8) L Monocytes # (Auto) 0.8 K/uL (0.1-1.0) Eosinophils # (Auto) 0.15 K/uL (0.00-0.70) Basophils # (Auto) 0.05 K/uL (0.00-0.20) Absolute Immature Granulocyte (auto 0.05 K/uL (0-1) Nucleated Red Blood Cells 0.0 % (0.0-0.19) Prothrombin Time 11.4 SEC (9.6-11.6) Prothromb Time International Ratio 1.02 (0.85-1.15) Activated Partial Thromboplast Time 29.8 SEC (26.3-35.5) Sodium Level 142 mmol/L (136-145) Potassium Level 4.1 mmol/L (3.5-5.1) Chloride Level 106 mmol/L (101-111) Carbon Dioxide Level 26 mmol/L (21-32) Blood Urea Nitrogen 25 mg/dL (7-18) H Creatinine 1.1 mg/dL (0.5-1.3) Glomerular Filtration Rate Calc 84 mL/min (>90) Random Glucose 99 mg/dL (70-105) Total Calcium 8.4 mg/dL (8.5-10.1) L Magnesium Level 2.00 mg/dL (1.80-2.40) Total Creatine Kinase 83 U/L (21-232) Troponin I High Sensitivity 54 ng/L (4-75) B-Type Natriuretic Peptide 697 pg/mL (0-100) H Urine Color LIGHT-YELLOW (YELLOW) Urine Appearance CLEAR (CLEAR) Urine pH 5.5 (5.0-8.0) Urine Specific [place] 1.009 (1.001-1.031) Urine Protein NEGATIVE mg/dL (NEGATIVE) Urine Glucose (UA) NEGATIVE mg/dL (NEGATIVE) Urine Ketones NEGATIVE mg/dL (NEGATIVE) Urine Occult Blood NEGATIVE (NEGATIVE) Urine Nitrate NEGATIVE (NEGATIVE) Urine Bilirubin NEGATIVE mg/dL (NEGATIVE) Urine Urobilinogen 2.0 mg/dL (0.2-1.0) H Urine Leukocyte Esterase NEGATIVE Ty/uL Urine Opiates Screen NEGATIVE (NEGATIVE) Urine Barbiturates Screen NEGATIVE (NEGATIVE) Urine Phencyclidine Screen NEGATIVE (NEGATIVE) Urine Amphetamines Screen NEGATIVE (NEGATIVE) Urine Benzodiazepines Screen NEGATIVE (NEGATIVE) Urine Cocaine Screen POSITIVE (NEGATIVE) H Urine Marijuana (THC) Screen POSITIVE (NEGATIVE) H Labs Reviewed?: Yes EKG/XRAY/US/CT/MRI EKG Comment 07/23/2024 TIME 9:30 P.M. VENTRICULAR RATE [address] WAVE ELEVATION OR DEPRESSION MDM MDM: DIFFERENTIAL DIAGNOSIS: COCAINE ABUSE, CHF EXACERBATION, CANNABIS ABUSE, NONCOMPLIANCE, PATIENT IS A 44-YEAR-OLD GENTLEMAN COMING IN COMPLAINING OF MULTIPLE ISSUES. HE STATES HE HAS BEEN SHORT OF BREATH FOR SOME TIME. HE ALSO STATES HE HAS BEEN SEEN AT MULTIPLE ERS WITH THE SAME REASON AND WAS TOLD EVERYTHING WAS NORMAL. LABORATORY WORKUP POSITIVE FOR COCAINE AND MARIJUANA. PATIENT WAS COUNSELED AGAINST THESE TYPE OF RECREATIONAL DRUGS. PATIENT WILL BE DISCHARGED IN STABLE CONDITION WITH A DIAGNOSIS OF POLYSUBSTANCE ABUSE AND CHF EXACERBATION. ED Course Orders Procedure Category Date Status Time Cbc With Differential LAB 07/23/24 Complete 21:24 Prothrombin Time With LAB 07/23/24 Complete INR 21:24 B-Type Natriuretic LAB 07/23/24 Complete Peptide 21:24 Chest 1vw RAD 07/23/24 Resulted 21:24 12 Lead Ekg Tracing- EKG 07/23/24 Complete Technical 21:24 Magnesium LAB 07/23/24 Complete 21:24 Creatine Kinase, Total LAB 07/23/24 Complete 21:24 Troponin I High LAB 07/23/24 Complete Sensitivity 21:24 Urinalysis Profile LAB 07/23/24 Complete 21:24 Partial LAB 07/23/24 Complete Thromboplastin Time 21:24 Basic Metabolic Panel LAB 07/23/24 Complete 21:24 Drug Screen Urine LAB 07/23/24 Complete 21:24 Furosemide 20mg Vial PHA 07/23/24 Complete (Lasix 20mg Vial) 23:00 Current Medications Medications (Trade) Dose Ordered Sig/Sarah Route PRN Reason Start Time Stop Time Status Last Admin Dose Admin Furosemide (LASix 20MG VIAL) 20 mg ONCE ONCE IV 07/23/24 23:00 07/23/24 23:01 DC 07/23/24 23:21 Vital Signs Date Time Temp Pulse Resp B/P (MAP) Pulse Ox O2 Delivery O2 Flow Rate FiO2 07/23/24 21:13 97.7 97 33 133/97 97 Nasal Cannula* 2 28 07/23/24 20:38 98.8 100 42 144/98 97 Room Air DX & DISP Disposition: Discharge Departure Impression: Primary Impression: Acute on chronic diastolic CHF (congestive heart failure) Additional Impression: Cocaine abuse Condition: Stable Additional Instructions: FOLLOW-UP WITH PRIMARY CARE PROVIDER IN 1 TO 2 DAYS. TAKE MEDICATIONS DIRECTED HERE IN THE EMERGENCY ROOM. OKAY TO CONTINUE HOME MEDICATIONS UNLESS OTHERWISE DISCUSSED DURING YOUR VISIT IN THE EMERGENCY ROOM TODAY. RETURN TO YOUR NEAREST EMERGENCY ROOM IF SYMPTOMS WORSEN OR IF THERE IS NO IMPROVEMENT. CALL 911 IF YOU NEED IMMEDIATE ASSISTANCE. TAKE TYLENOL [id number] NEEDED AND IF NO CONTRAINDICATIONS ARE PRESENT. INCREASE ORAL HYDRATION. A WOUND CULTURE OR URINE CULTURE WAS ORDERED HERE IN THE EMERGENCY ROOM DEPARTMENT PLEASE FOLLOW-UP WITH PRIMARY CARE PROVIDER AND ADVISE THEM TO GET REPEAT PORTS FROM OUR FACILITY. IF YOU HAD ANY FRANCES WRAP/SPLINTS THAT WERE APPLIED HERE, PLEASE DO NOT REMOVE THEM UNTIL YOU SEE YOUR PRIMARY CARE OR SPECIALTY. REFERRALS: Referrals: SELF,REFERRAL (PCP) LES SWEET MD Time of Disposition: 00:38 ARISTIDES HENRY MD Jul 24, 2024 00:39
[2024-07-24 01:59] VITALS: PULSE 86; RESP 19
[2024-07-24] MEDS: IpraTROPium 0.5 MG/2.5 ML INH IH ONE (02:00)
[2024-07-24] MEDS ORDERED: IPRAHFA IH (02:05)
[2024-07-24 02:48] VITALS: BP 148/102; PULSE 81; RESP 26; O2SAT 96
== END 2024-07-24 02:49 | disposition home or self-care (01) ==
LOC: EDH 20:35
DX: I11.0 Hypertensive heart disease with heart failure (principal); I50.33 Acute on chronic diastolic (congestive) heart failure; F14.10 Cocaine abuse, uncomplicated; E11.9 Type 2 diabetes mellitus without complications; J45.909 Unspecified asthma, uncomplicated; Z79.84 Long term (current) use of oral hypoglycemic drugs; Z79.899 Other long term (current) drug therapy; Z95.5 Presence of coronary angioplasty implant and graft; Z95.810 Presence of automatic (implantable) cardiac defibrillator
CPT/HCPCS: 99284; 96374; 71045; 82550; 83735; 84484; 80048; 83880; 80305; 85025; 85610; 85730; 36415; 93005; 81003; 94640; J1940

== ENCOUNTER 2025-01-13 08:21 | Inpatient (IN) | payer BC, MEDICAID ==
[2025-01-13] VITALS (8 sets, daily range): BP systolic 130–144; BP diastolic 92–101; PULSE 95–111; RESP 16–32; TEMP 97.5–98.1; O2SAT 98–100
[~2025-01-13] VITALS: Ht 177.8 cm; Wt 74.3 kg
[~2025-01-13 08:21] MED LIST changes: -AMIO200T68 PO; +AMIO200T73 PO; +IPRAHFA IH
[2025-01-13 08:59] LABS: BASOPHILS # (AUTO) 0.05 K/uL (0.00-0.20); BASOPHILS % (AUTO) 0.5 % (0.0-5.0); EOSINOPHILS # (AUTO) 0.01 K/uL (0.00-0.70); EOSINOPHILS % (AUTO) 0.1 % (0.0-8.0); HEMATOCRIT 46.1 % (42-54); IMMATURE GRANULOCYTE ABSOLUTE 0.06 K/uL (0-1); LYMPHOCYTES # (AUTO) 1.1 K/uL (1.0-4.8); LYMPHOCYTES % (AUTO) 12.3 % (21.0-51.0); MEAN CORPUSCULAR HEMOGLOBIN 30.3 pg (27.0-33.0); MEAN CORPUSCULAR HGB CONC 33.2 g/dL (32.0-36.0); MEAN CORPUSCULAR VOLUME 91.3 fL (79-99); MONOCYTES # (AUTO) 0.9 K/uL (0.1-1.0); NEUTROPHILS % (AUTO) 76.4 % (40.0-77.0); PLATELET COUNT (AUTO) 223 K/uL (130-400); RED BLOOD CELL COUNT(AUTO) 5.05 MIL/uL (4.50-6.20); RED CELL DISTRIBUTION WIDTH 20.8 % (11.0-15.5); WHITE BLOOD COUNT (AUTO) 9.2 K/uL (4.8-10.8)
[2025-01-13 09:14] LABS: CREATININE 1.2 mg/dL (0.5-1.3); POTASSIUM 3.4 mmol/L (3.5-5.1)
[2025-01-13 09:15] LABS: RAPID GROUP A STREP negative (NEGATIVE)
[2025-01-13 09:20] LABS: SARS-CoV-2, RNA, NAAT NEGATIVE SARS CoV-2 (NEGATIVE)
[2025-01-13 09:25] LABS: INFLUENZA TYPE A Negative For Type A (NEGATIVE); INFLUENZA TYPE B Negative For Type B (NEGATIVE)
--- NOTE | 2025-01-13 09:37 | ERN ---
General Chief Complaint: Shortness of Breath Stated Complaint: SOB Time Seen by MD: 08:23 Source: patient History of Present Illness Initial Comments Patient is a 44-year-old male coming in to be evaluated for shortness of breath. Patient patient these symptoms began two days ago. He states that it progressively got worse. He also states that he has been feeling chills and a cough. Allergies: Coded Allergies: No Known Drug Allergies (Unverified Allergy, Unknown, 12/28/23) Home Meds Active Scripts Ipratropium [place] (Atrovent Hfa) 17 Mcg/Actuation Hfa.aer.ad, 2 PUFF IH QID PRN for SOB/WHEEZING for 7 Days, #20 GM 0 Refills Prov:ARISTIDES HENRY MD 07/24/24 Reported Medications Lisinopril (Lisinopril) 10 Mg Tablet, 1 TAB PO DAILY for 30 Days, #30 TAB 0 Refills 06/22/24 Amiodarone HCl (Amiodarone HCl) 200 Mg Tablet, 1 TAB PO DAILY for 30 Days, #30 TAB 0 Refills 06/22/24 Furosemide (Furosemide) 40 Mg Tablet, 1 TAB PO DAILY for 30 Days, #30 TAB 0 Refills 06/22/24 Dapagliflozin Propanediol (Farxiga) 10 Mg Tablet, 1 TAB PO DAILY for 30 Days, #30 TAB 0 Refills 06/22/24 Past Medical History Past Medical History: COPD, Diabetes-Type II, High Cholesterol, Hypertension, Seizure, Other Medical History Other: CKD Past Surgical History: Pacer/AICD Surgical History Other: CARDIAC STENTS ROS Dictation CONSTITUTIONAL: No chills, no fever, no weakness, no diaphoresis, no malaise. HEAD/FACE: No signs of trauma. EENT: No eye pain, no blurred vision, no tearing, no double vision, no ear pain, no ear discharge, no nose pain, no nasal congestion, no throat pain, no throat swelling, no mouth pain. RESPIRATORY: cough, no orthopnea, SOB, no stridor, no wheezing. CARDIOVASCULAR: No chest pain, no edema, no palpitations, no syncope. GASTROINTESTINAL/ABDOMINAL: No abdominal pain, no constipation, no diarrhea, no nausea, no vomiting. GENITOURINARY: No abnormal discharge, no dysuria, no frequent urination, no hematuria. No complaints of pain in the genitals. MUSCULOSKELETAL: No back pain, no gout, no joint pain, no joint swelling, no muscle pain, no muscle stiffness, no neck pain. INTEGUMENTARY: No change in color, no change in hair/nails, no dryness, no lesion, no lumps, no rash. NEUROLOGICAL/PSYCH: No anxiety, not depressed, no emotional problem, no headache, no numbness, no pre-existing deficit, no history of seizures, no tremors, no weakness. HEMATOLOGIC/LYMPHATIC: Not anemic, no history of blood clots, no apparent bleeding, no bruising, glands not swollen. All Systems Negative, Except as Noted. Physical Exam Physical Exam Dictation VITAL SIGNS: Reviewed. GENERAL APPEARANCE: Alert, oriented x3, no acute distress, obese. HEAD AND FACE: Non-traumatic. EYES: PERRL, pink conjunctivas, eyelid no trauma, anterior chamber clear. EARS: Pinnas intact and no signs of trauma or erythema. Ear canals clear and no discharge. TMs no erythema. NOSE: No discharge, no bleeding. OROPHARYNX: Mouth normal, teeth no caries, tongue pink. Pharynx clear, no erythema. Tonsils no exudates, no abscesses noted. Mucous membrane moist. NECK: Supple, non-tender, no thyromegaly, no masses, no JVD, no bruits. BREAST: Deferred. CHEST: No tenderness, no crepitus, no paradoxical movement, no retractions. LUNGS: Clear, well-ventilated, symmetric,rales, no wheezing, rhonchi, no stridor, good breath sounds bilaterally. HEART: Regular rate, regular rhythm, no murmur, no gallops. VASCULAR: No peripheral edema. ABDOMEN: Soft, positive bowel sounds, nondistended, no guarding, nontender, no rebound, no masses no hepatomegaly, no splenomegaly, no Vicente's sign, no hernias. RECTAL: Deferred. GENITAL: Deferred. NEUROLOGICAL: Normal speech, gross motor function intact, gross sensory function intact. MUSCULOSKELETAL: Neck nontender, full range of motion, back nontender, full range of motion. EXTREMITIES: Nontender, full range of motion. SKIN: Color pink, dry, no turgor, no rash, no lacerations, no abrasions, no contusions. LYMPHATICS: Deferred. Results Laboratory and Microbiology Lab and Micro Result Laboratory Tests Test 01/13/25 08:41 01/13/25 08:42 White Blood Count 9.2 K/uL (4.8-10.8) Red Blood Count 5.05 MIL/uL (4.50-6.20) Hemoglobin 15.3 g/dL (14.0-18.0) Hematocrit 46.1 % (42-54) Mean Corpuscular Volume 91.3 fL (79-99) Mean Corpuscular Hemoglobin 30.3 pg (27.0-33.0) Mean Corpuscular Hemoglobin Concent 33.2 g/dL (32.0-36.0) Red Cell Distribution Width 20.8 % (11.0-15.5) H Platelet Count 223 K/uL (130-400) Mean Platelet Volume 11.9 fL (7.5-10.5) H Immature Granulocyte % (Auto) 0.7 % (0-1) Neutrophils (%) (Auto) 76.4 % (40.0-77.0) Lymphocytes (%) (Auto) 12.3 % (21.0-51.0) L Monocytes (%) (Auto) 10.0 % (3.0-13.0) Eosinophils (%) (Auto) 0.1 % (0.0-8.0) Basophils (%) (Auto) 0.5 % (0.0-5.0) Neutrophils # (Auto) 7.0 K/uL (1.8-7.7) Lymphocytes # (Auto) 1.1 K/uL (1.0-4.8) Monocytes # (Auto) 0.9 K/uL (0.1-1.0) Eosinophils # (Auto) 0.01 K/uL (0.00-0.70) Basophils # (Auto) 0.05 K/uL (0.00-0.20) Absolute Immature Granulocyte (auto 0.06 K/uL (0-1) Nucleated Red Blood Cells 0.0 % (0.0-0.19) Red Blood Cell Morphology ANISO 1+ Sodium Level 139 mmol/L (136-145) Potassium Level 3.4 mmol/L (3.5-5.1) L Chloride Level 106 mmol/L (101-111) Carbon Dioxide Level 24 mmol/L (21-32) Blood Urea Nitrogen 25 mg/dL (7-18) H Creatinine 1.2 mg/dL (0.5-1.3) Glomerular Filtration Rate Calc 76 mL/min (>90) Random Glucose 112 mg/dL (70-105) H Lactic Acid Level 2.4 mmol/L (0.8-2.5) Total Calcium 8.9 mg/dL (8.5-10.1) Total Creatine Kinase 47 U/L (21-232) # Troponin I High Sensitivity 97 ng/L (4-75) *H Influenza Type A Antigen Negative For Type A Influenza Type B Antigen Negative For Type B SARS-CoV-2, RNA, NAAT NEGATIVE SARS CoV-2 Group A Streptococcus Rapid negative (NEGATIVE) Labs Reviewed?: Yes EKG/XRAY/US/CT/MRI EKG Comment 01/13/2025 time 9:45 a.m. Ventricular rate [address] wave elevation or depression X-RAY Comment Chest x-ray-right lung pneumonia MDM MDM: Differential diagnosis: Right lung pneumonia, shortness of breath, sepsis, Rationale: Tests considered and ordered secondary to shared decision making include: labs, ECG and radiology Previous outside records reviewed: Old ER visits. Risk of complication and/or morbidity or mortality of patient management: None Medications-Per medication reconciliation Need for hospitalization: Patient does meet criteria for hospitalization. Need for emergency major/minor surgery: No There are no social concerns with this patient. Prescription drug management Prescriptions will include symptomatic care Patient's prior external medical records from other ER visits were reviewed by me as indicated. Prior testing and results from previous visits were reviewed. Prior tests were taken into account with medical decision making and resource utilization, independent historian/historians were used to obtain complete medical history. I independently interpreted the test that were performed, results were reviewed by me and considered findings on radiology if ordered. Medical management and examination interpretation discussions were had by me with other qualified healthcare professionals as indicated for the patient's care. Patient is a 44-year-old male coming in to be evaluated for shortness of breath. X-ray disclose right lung infiltrates suggestive of right lung pneumonia. Lactic acid elevated. Patient was very symptomatic received breathing treatments antibiotics will be admitted under the care of hospitalist group for ongoing management of right lung pneumonia with sepsis. ED Course Orders Procedure Category Date Status Time Cbc With Differential LAB 01/13/25 Complete 08: Blood Cult JAIDEN 01/13/25 In Process 08:27 Urinalysis Profile LAB 01/13/25 Logged 08:27 Culture Urine JAIDEN 01/13/25 Logged 08:27 Creatine Kinase, Total LAB 01/13/25 Complete 08:27 Troponin I High LAB 01/13/25 Complete Sensitivity 08:27 Lactic Acid LAB 01/13/25 Complete 08:27 Basic Metabolic Panel LAB 01/13/25 Complete 08:27 Covid Rna Naat LAB 01/13/25 Complete 08:27 Influenza Type A & B, LAB 01/13/25 Complete Rapid 08:27 Rapid (Group A Strep) LAB 01/13/25 Complete 08:27 Chest 1vw RAD 01/13/25 Taken 08:29 Ceftriaxone 1g Vial PHA 01/13/25 Complete (Rocephine 1g Inj) 10:00 Azithromycin 500mg+Ns PHA 01/13/25 In Process 250ml (Azithromyci 10:00 Methylprednisolone PHA 01/13/25 Complete Succ 125mg (Solu-Medr 10:00 Ipratropium/Albuterol PHA 01/13/25 Complete Neb (Duoneb) 10:00 12 Lead Ekg Tracing- EKG 01/13/25 Complete Technical 09:38 Current Medications Medications (Trade) Dose Ordered Sig/Sarah Route PRN Reason Start Time Stop Time Status Last Admin Dose Admin Albuterol (DUOneb) 2 udvial ONCE ONCE IH 01/13/25 10:00 01/13/25 10:01 DC 01/13/25 10:13 Azithromycin 250 ml @ 250 mls/hr Q24H IVPB 01/13/25 10:00 01/23/25 09:59 01/13/25 10:11 Ceftriaxone Sodium (ROCEphine 1G INJ) 1 gm ONCE ONCE IVPB 01/13/25 10:00 01/13/25 10:01 DC 01/13/25 10:10 Methylprednisolone Sodium Succinate (Solu-medROL 125MG) 125 mg ONCE ONCE IVP 01/13/25 10:00 01/13/25 10:01 DC 01/13/25 10:10 Vital Signs Date Time Temp Pulse Resp B/P (MAP) Pulse Ox O2 Delivery O2 Flow Rate FiO2 01/13/25 10:17 104 32 01/13/25 08:45 97.9 109 22 135/105 99 Nasal Cannula* 2 28 01/13/25 08:21 97.9 107 32 159/75 97 Room Air 0 DX & DISP Disposition: Inpatient Decision to Admit Time: 10:25 Departure Impression: Primary Impression: Pneumonia involving right lung Condition: Stable Referrals: SELF,REFERRAL (PCP) ARISTIDES HENRY MD Jan 13, 2025 09:37
--- NOTE | 2025-01-13 09:49 | EKG ---
[facility] Test Date: 2025-01-13 Test Time: 09:45:35 Pat Name: GOLDIE CUNNINGHAM Department: [facility] Room: 224 Gender: M Title Investigator: [id number] : 1980 Requested By: ARISTIDES HENRY Order Number: [id number] Reading MD: Main Thrasher Measurements Intervals [place] Rate: 108 P: 71 IA: 150 QRS: -25 QRSD: 109 T: 261 QT: 376 QTc: 504 Interpretive Statements Sinus tachycardia Ventricular premature complex Biatrial enlargement LVH with secondary repolarization abnormality Anterior infarct, old Prolonged QT interval Compared to ECG 07/23/2024 21:30:11 Ventricular premature complex(es) now present Early repolarization now present Sinus rhythm no longer present Electronically Signed On 01-13-2025 18:14:54 CDT by Main Thrasher Please click the below link to view image of tracing.
[2025-01-13] MEDS: cefTRIAXone 1G VIAL IVPB ONE (10:10)
[2025-01-13] MEDS: Solu-medROL 125MG VIAL IVP ONE (10:10)
[2025-01-13] MEDS: AZITHROMYCIN 500MG+NS 250ML 250 ML IVPB SCH (10:11)
[2025-01-13] MEDS: IpraTROPium/alBUTERol SULFATE 3 ML SOLUTION IH ONE (10:13)
[2025-01-13] MEDS: PANTOPrazole 40 MG/VIAL IVP ONE (10:47)
--- NOTE | 2025-01-13 10:54 | HP ---
[facility] HISTORY AND PHYSICAL Date of Service: Jan 13, 2025 Time of Service: 10:54 HISTORY OF PRESENT ILLNESS: 44 year old male with past medical history of CHF with history of AICD/pacemaker placement, history of COPD, diabetes mellitus type, hypertension who presented to the hospital secondary to cough, shortness of breath. Patient states for the past two weeks he has been having productive cough with sputum production he has noted fever, chills at home. He has also noted shortness of breath which is present at rest and with exertion. He states he has been compliant with his medications including Lasix. He denies any lower extremity swelling. He also complains of numbness in the right foot. He states he has a history of seizure and had one episode of seizure around two weeks ago. He is not taking any seizure medications. He started states he lost consciousness but is unable to s mccarty if he had any jerking movements. He has not seen a neurologist recently. Denied any falls, syncopal episode. He uses a cane for ambulation denied any sick contacts at home. Due to insurance issues he has not been able to follow up with group work program aide. He sees Dr. Serra as outpatient. One month ago he was hospitalized in [place] where he states he needed fluid to be drained from his abdomen. Labs showed white count of 9.2, hemoglobin is 15.3, platelet count was 223k, sodium was 139, potassium was 3.4, creatinine was 1.2, chloride was 106, troponin 9 elevated at 97 REVIEW OF SYSTEMS CONSTITUTIONAL: Denies fevers, chills, or night sweats. No unintentional weight loss reported. NEUROLOGICAL: Denies headache, amaurosis fugax, motor weakness, sensory deficit, vertigo/spinning sensation, gait abnormalities, or tremors. ENT: No hearing loss, otalgia, otorrhea, rhinitis, rhinorrhea, hoarseness, or sore throat. CARDIOVASCULAR: Denies any exertional angina, dyspnea on exertion, orthopnea, paroxysmal nocturnal dyspnea, palpitations, life-threatening arrhythmias, claudication. PULMONARY: Cough, shortness of breath, sputum production GASTROINTESTINAL: Positive for abdominal pain. Denied any nausea, vomiting, diarrhea. Positive for constipation GENITOURINARY: Denies frequency, urgency, nocturia, hematuria or incontinence (Storage/Irritative symptoms.) Low urinary stream, straining to void, urinary intermittency or hesitancy, splitting of the voiding stream, terminal dribbling. ENDOCRINOLOGIC: Denies polyuria, polydipsia, polyphagia or heat/cold intolerances. HEMATOLOGIC: Denies thrombophilia/previous clots, or coagulopathy/bleeding disorders. ONCOLOGIC: Denies personal history of malignancy. DERMATOLOGIC: Denies rashes or pruritus. PSYCHIATRIC: Denies any suicidal or homicidal ideation. Denies hallucinations. PAST MEDICAL HISTORY: [ ] PAST SURGICAL HISTORY: [ ] PAST SOCIAL HISTORY: [ ] FAMILY HISTORY: [ ] Coded Allergies: No Known Drug Allergies (Unverified Allergy, Unknown, 12/28/23) PHYSICAL EXAM GENERAL APPEARANCE: The patient is awake, alert, and oriented, in no acute cardiopulmonary distress. NEUROLOGICAL: Cranial nerves II-XII grossly intact. Motor is 5/5 in bilateral upper and lower extremities proximal to distal. No sensory deficits. HEENT: Face is symmetric. Pupils are equal and reactive. Extraocular movements are intact. NECK: Supple. No JVD. No thyromegaly. No submental, submandibular, pre- /postauricular, occipital or supraclavicular lymphadenopathy. CHEST: Normal chest expansion. No Telemetry. LUNGS: Absence of any rales, rhonchi or any wheezing. CARDIOVASCULAR: Regular. S1 and S2 normal. No appreciable rubs, murmurs or gallops. ABDOMEN: Soft, mild generalized tenderness on palpation no rebound, no guarding present. : Deferred. No Mendoza. EXTREMITIES: Non-edematous and not cyanotic. No clubbing. Good capillary r efill. SKIN: No skin breakdown. Vital Sign (Last 24 Hours) 01/13/25 01/13/25 08:45 10:17 Temp 97.9 Pulse 104 Resp 32 B/P (MAP) 135/105 Pulse Ox 99 O2 Delivery Nasal Cannula* O2 Flow Rate 2 FiO2 28 LABS: Laboratory: Test 01/13/25 08:42 01/13/25 08:41 Range/Units Influenza Type A Antigen Negative For Type A NEGATIVE Influenza Type B Antigen Negative For Type B NEGATIVE SARS-CoV-2, RNA, NAAT NEGATIVE SARS CoV-2 NEGATIVE Group A Streptococcus Rapid negative NEGATIVE White Blood Count 9.2 4.8-10.8 K/uL Red Blood Count 5.05 4.50-6.20 MIL/uL Hemoglobin 15.3 14.0-18.0 g/dL Hematocrit 46.1 42-54 % Mean Corpuscular Volume 91.3 79-99 fL Mean Corpuscular Hemoglobin 30.3 27.0-33.0 pg Mean Corpuscular Hemoglobin Concent 33.2 32.0-36.0 g/dL Red Cell Distribution Width 20.8 H 11.0-15.5 % Platelet Count 223 130-400 K/uL Mean Platelet Volume 11.9 H 7.5-10.5 fL Immature Granulocyte % (Auto) 0.7 0-1 % Neutrophils (%) (Auto) 76.4 40.0-77.0 % Lymphocytes (%) (Auto) 12.3 L 21.0-51.0 % Monocytes (%) (Auto) 10.0 3.0-13.0 % Eosinophils (%) (Auto) 0.1 0.0-8.0 % Basophils (%) (Auto) 0.5 0.0-5.0 % Neutrophils # (Auto) 7.0 1.8-7.7 K/uL Lymphocytes # (Auto) 1.1 1.0-4.8 K/uL Monocytes # (Auto) 0.9 0.1-1.0 K/uL Eosinophils # (Auto) 0.01 0.00-0.70 K/uL Basophils # (Auto) 0.05 0.00-0.20 K/uL Absolute Immature Granulocyte (auto 0.06 0-1 K/uL Nucleated Red Blood Cells 0.0 0.0-0.19 % Red Blood Cell Morphology ANISO 1+ Sodium Level 139 136-145 mmol/L Potassium Level 3.4 L 3.5-5.1 mmol/L Chloride Level 106 101-111 mmol/L Carbon Dioxide Level 24 21-32 mmol/L Blood Urea Nitrogen 25 H 7-18 mg/dL Creatinine 1.2 0.5-1.3 mg/dL Glomerular Filtration Rate Calc 76 >90 mL/min Random Glucose 112 H 70-105 mg/dL Lactic Acid Level 2.4 0.8-2.5 mmol/L Total Calcium 8.9 8.5-10.1 mg/dL Total Creatine Kinase 47 # 21-232 U/L Troponin I High Sensitivity 97 *H 4-75 ng/L Current Medications Medications (Trade) Dose Ordered Sig/Sarah Route PRN Reason Start Time Stop Time Status Last Admin Dose Admin Acetaminophen (TYLenol 500MG TAB) 500 mg Q6H PRN PO MILD PAIN (1-3) 01/13/25 11:00 02/12/25 10:59 UNV Azithromycin 250 ml @ 250 mls/hr Q24H IVPB 01/13/25 10:00 01/23/25 09:59 01/13/25 10:11 250 MLS/HR Doxycycline Hyclate (Doxycycline Hyclate) 100 mg BID PO 01/13/25 21:00 01/23/25 20:59 UNV Enoxaparin Sodium (Lovenox) 30 mg DAILY SQ 01/14/25 09:00 02/13/25 08:59 UNV Famotidine (Pepcid 20mg Vial) 20 mg BID IV 01/13/25 21:00 02/12/25 20:59 UNV Furosemide (LASix 20MG VIAL) 20 mg Q8H IV 01/13/25 12:00 02/12/25 11:59 UNV Ipratropium [place] (AtrovENT UD) 1 mg Q6H PRN IH SHORTNESS OF BREATH 01/13/25 11:00 02/12/25 10:59 UNV Magnesium Sulfate 50 ml @ 0 mls/hr PROTOCOL PRN IV hypomagnesemia 01/13/25 11:00 02/12/25 10:59 UNV Morphine Sulfate (morPHINE 2MG SYG) 2 mg Q6H PRN IVP SEVERE PAIN (7-10) 01/13/25 11:00 01/20/25 10:59 UNV Piperacillin Sod/ Tazobactam Sod (Zosyn 3.375gm+NS 50ml) 3.375 gm Q8H IVPB 01/13/25 11:30 01/23/25 11:29 UNV Potassium Chloride 100 ml @ 100 mls/hr AD PRN IV POTASSIUM PROTOCOL 01/13/25 11:00 02/12/25 10:59 UNV Potassium Chloride (K-Dur/Klor-Con 20meq) 20 meq AD PRN PO POTASSIUM PROTOCOL 01/13/25 11:00 02/12/25 10:59 UNV Potassium Chloride (KCl 10% Elixir 20meq/15ml) 20 meq AD PRN PO POTASSIUM PROTOCOL 01/13/25 11:00 02/12/25 10:59 UNV Sodium Chloride (NS 50ml) 50 ml AD IV 01/13/25 11:30 02/12/25 11:29 UNV DIAGNOSTICS / RADIOLOGY: Chest x-ray concerning for right lower lobe pneumonia ASSESSMENT: Community acquired pneumonia POA Acute hypoxic respiratory failure secondary to community-acquired pneumonia Suspected acute on chronic CHF exacerbation with systolic and diastolic dysfunction with EF of 30-35% Troponin elevation likely in setting of type 2 [place] Medical noncompliance History of cocaine use Hypertension Diabetes mellitus type 2 COPD Abdominal Pain Right foot pain and paresthesias History of Seizures not on medications PLAN: - patient to be admitted to PCCU -in reference to community-acquired pneumonia patient will be started on Zosyn and doxycycline. Obtain a sputum culture, sample we will request a pulmonary consultation -in reference to CHF exacerbation. Patient will be started on Lasix 20 mg q.8 hours. We will trend troponins q.6 hours to rule out ACS. We will request consultation with Cardiology. Obtain echocardiogram -obtain home medications which will be reconciled once available -check TSH, A1c, procaine, CRP -obtain a foot x-ray -obtain a CT head. Obtain a CT abdomen for further evaluation of abdominal pain. - we will request consultation with Neurology due to history of seizures. Advanced Care Planning Which of the following were discussed: Hospice care: Yes __ No _x_ Therapeutic options: Yes __ No __ Advance directives: Yes __ No __ Other discussions: Pt is full code Discussed with who?: patient (Patient, family or surrogates) Voluntary nature of this service was explained to the patient? Yes _x_ No __ Amount of time spent: 25 minutes LENKA Urbina MD, MD Jan 13, 2025 10:54
[2025-01-13] MEDS ORDERED: PoTASSium chl 10% ELIXIR 20MEQ 20 MEQ/15 ML UDCUP PO PRN (11:00)
--- NOTE | 2025-01-13 11:01 | NUR ---
Patient refuses to collect urine for urine sample. Stated : "im not giving you anything". Educated patient on the importance of collecting urine sample. Patient verbalized understanding but stated he refuses and that is his right. I verbalized understanding.
[2025-01-13 11:14] LABS: ABG BASE EXCESS -1.9 mmol/L (-2.0-3.0); ABG HCO3 18.6 mmol/L (21.0-28.0); ABG OXYGEN SATURATION 98.2 % (94.0-98.0); ABG PCO2 23 mmHg (35-48); PO2, ARTERIAL BG 97.9 mmHg (83.0-108.0); VENT MODE, BG RA (ROOM AIR)
[2025-01-13] MEDS ORDERED: 0.9%NACL 50ML IV SCH (11:30)
--- NOTE | 2025-01-13 11:50 | NUR ---
CARDIO DR PRESTON INFORMED DR TROTTER ABOUT THE PT
--- NOTE | 2025-01-13 11:51 | NUR ---
NEURO DR PRESTON CONTACTED DR CORTEZ,PENDING REPLY
[2025-01-13 12:02] LABS: HEMOGLOBIN A1C 5.9 % (4.0-6.0)
[2025-01-13 12:03] LABS: THYROID STIMULATING HORMONE 3.12 uIU/mL (0.36-3.74)
--- NOTE | 2025-01-13 13:00 | NUR ---
Spoke to patient about health insurance coverage. Mrs. Connell from administration was my witness. Patient verbalized understanding from what was discussed and decided to stay in hospital knowing health insurance is out of network.
[2025-01-13 13:20] LABS: CREATININE 1.2 mg/dL (0.5-1.3); MAGNESIUM 1.8 mg/dL (1.80-2.40); POTASSIUM 3.4 mmol/L (3.5-5.1)
--- NOTE | 2025-01-13 13:39 | HMCIMG ---
CT ABDOMEN/PELVIS W/O CONTRAST HISTORY: Generalized abdominal pain COMPARISON: None TECHNIQUE: Multiple sequential axial images of the abdomen and pelvis were obtained from the dome of the diaphragm through symphysis pubis. Patient was not given contrast through intravenous route. Oral contrast was not given. FINDINGS: There is right pleural effusion. There are bilateral pulmonary infiltrates right more than left. Degenerative changes of the thoracolumbar spine are present. The heart is not enlarged. Liver is enlarged measuring 18 cm. Gallbladder is distended. Nonspecific mesenteric fat stranding is seen. The liver, spleen, adrenal glands and pancreas are unremarkable. There is no evidence of hydronephrosis bilaterally. No evidence of renal stone is seen. There is normal lordosis. Fecal material is seen in the colon. There are normal size retroperitoneal and mesenteric lymph nodes. No ascites is seen. Atherosclerotic changes are present. Pelvic sidewalls are symmetric bilaterally. Bladder is well distended without wall thickening. IMPRESSION: 1. Right pleural effusion. Bilateral pulmonary infiltrates with volume of the left. Large amount of fecal material is seen in the colon. Distended gallbladder. Nonspecific mesenteric fat stranding. Mild diverticulosis. CT was performed with one or more following dose reduction techniques: automated exposure control, adjustment of the mA and kv according to patient's size, or use of a iterative reconstruction technique.
--- NOTE | 2025-01-13 13:39 | HMCIMG ---
CT HEAD/BRAIN W/O CONTRAST HISTORY: Right hip prosthesis COMPARISON: None TECHNIQUE: Multiple sequential axial images of the head were obtained from the base of the skull through vertex. Patient was not given contrast through intravenous route. FINDINGS: The ventricles and extraventricular CSF spaces are nondilated for patient's age. There is no midline shift, mass effect or herniation. No acute intracranial bleed is seen. Visualized portion of the paranasal sinuses are grossly within normal limits. IMPRESSION: 1. No acute intracranial bleed is seen. CT was performed with one or more following dose reduction techniques: automated exposure control, adjustment of the mA and kv according to patient's size, or use of a iterative reconstruction technique.
[2025-01-13] MEDS: furoSEMIDE 20MG VIAL IV SCH (13:41)
[2025-01-13] MEDS: ZOSYN 3.375GM +NS 50ML IVPB SCH (13:41)
--- NOTE | 2025-01-13 14:42 | NUR ---
Patient refuses to give urine sample.
--- NOTE | 2025-01-13 14:45 | NUR ---
home medication not reconsiled yet. Patient does not have a list and does not remember name or doses of medications he takes at home.
--- NOTE | 2025-01-13 15:59 | HMCIMG ---
CHEST 1VW HISTORY: Shortness of breath COMPARISON: 07/23/2024 FINDINGS: A frontal projection of the chest was obtained. There are bilateral pulmonary infiltrates suggestive of pulmonary vascular congestion with possible superimposed pneumonitis. The heart is borderline enlarged. Pacemaker is seen entering from the left. No evidence of aortic calcification is seen. IMPRESSION: 1. Bilateral pulmonary infiltrates are seen suggestive of pulmonary vascular congestion with possible superimposed pneumonitis. Interval worsening is seen.
--- NOTE | 2025-01-13 16:08 | NUR ---
Called Mrs. Hellen VALDEZ to give report. Notify Mrs. Macedo about pending studies. She verbalized understqandig. SBAR on patients chart.
--- NOTE | 2025-01-13 16:11 | HMCIMG ---
FOOT LIMITED 2VWS RT HISTORY: Right foot pain COMPARISON: None TECHNIQUE: 2 images of the right foot were obtained. FINDINGS: There is no acute displaced fracture or dislocation. Tiny calcaneal spur is seen. Degenerative changes are seen. IMPRESSION: 1. Findings as described above.
[2025-01-13 17:20] LABS: APPEARANCE,URINE CLEAR (CLEAR); BILIRUBIN,URINE NEGATIVE (NEGATIVE); COLOR,URINE YELLOW (YELLOW); GLUCOSE, URINE (UA) NEGATIVE (NEGATIVE); KETONES,URINE NEGATIVE (NEGATIVE); LEUKOCYTE ESTERASE ,URINE NEGATIVE Leu/uL (NEGATIVE); NITRATE,URINE NEGATIVE (NEGATIVE); OCCULT BLOOD,URINE NEGATIVE (NEGATIVE); PH,URINE 5.5 (5.0-8.0); PROTEIN,URINE 100 mg/dL (NEGATIVE); UROBILINOGEN,URINE 0.2 mg/dL (0.2-1.0)
[2025-01-13 17:23] LABS: ADD UA MICROSCOPIC YES
[2025-01-13] MEDS: PoTASSium chloRIDE 20MEQ/100ML 100 ML IV PRN (17:24)
[2025-01-13 17:25] LABS: MUCUS,URINE RARE LPF (None Seen); SQUAMOUS EPITHELIAL CELL,UR RARE /HPF (0-2)
[2025-01-13 17:27] LABS: AMPHET/METH SCREEN,URINE NEGATIVE (NEGATIVE); BARBITURATE SCREEN, URINE NEGATIVE (NEGATIVE); BENZODIAZEPINES SCREEN,URINE NEGATIVE (NEGATIVE); CANNABINOID SCREEN,URINE POSITIVE (NEGATIVE); COCAINE SCREEN,URINE POSITIVE (NEGATIVE); OPIATE SCREEN,URINE NEGATIVE (NEGATIVE); PHENCYCLIDINE SCREEN,URINE NEGATIVE (NEGATIVE)
--- NOTE | 2025-01-13 18:00 | NUR ---
HOME MEDS Home meds not available. Patient did not bring his home meds. Patient states he takes 2 bag full of medications; some medications are only empty bottles, because he wasn't able to refill his medications. Asked patient that medications were needed to brought in soon. Patient stated family member would bring them in tomorrow morning.
[2025-01-13] MEDS: IpraTROPium 0.5 MG/2.5 ML INH IH PRN (18:27)
--- NOTE | 2025-01-13 19:09 | HMCSR ---
APPROVED REPORT EXAM: Two-dimensional and M-mode echocardiogram with Doppler and color Doppler. INDICATION ICD: chf exacerbation 2D Dimensions RVDd5.2 cmLVEF(%)11.9 (>50%)LVED Vol(simp.)195.0 mL IVSd0.8 (0.7-1.1cm)FS(%)5 %LVES Vol(simp.)173.0 mL LVDd7.3 (3.8-5.6cm)LA (2D)4.1 (1.6-4.0cm)LVEF(%, simp.)11 % PWd1.2 (0.7-1.1cm)Ao Root(2D)3.3 (2.0-3.7cm)LA ESV INDEX (BP)55.26 mL/m2 LVDs6.9 (2.5-4.0cm)LVOT diam2.3 (1.8-2.4cm) IVC diam2.2 cm Deformation Strain Apical 4-1.8 % Apical 2-2.0 % Apical 3-3.1 % Global Strain-2.3 % M-Mode Dimensions EPSS2.9 cm LA (MM)5.2 (1.6-4.0cm) Ao Root(MM)2.8 (2.0-3.7cm) Aortic Valve AoV Vmax0.7 m/Helen Peak GR2.2 mmHgLVOT Vmax0.9 m/s AoV VTI0.1 mAo Mean GR1.3 mmHgLVOT VTI0.12 m DEEPAK (VMAX)4.89 cm2AVA (VTI) 4.5 cm2 Mitral Valve MV E Vmax73.3 cm/sDECEL Hfhu188 ms MV A Vmax18.5 cm/sP 1/2 T46 ms E/A ratio4.0MVA (PHT)4.8 cm2 TDI E/E' Pmnxaa01.3E/E' Ezbleyi60.1 Medial E' Peak V4.78 cm/sLateral E' Peak V2.52 cm/s Tricuspid Valve TR Vmax2.4 m/sRAP (EST) 15 ioTyCYJE17.8 mmHg TR Peak GR24.8 mmHg Left Ventricle The left ventricle is severely dilated. Severe hypokinesis There is normal left ventricular wall thic kness. LVEF is <20%. Large apical thrombus is present, 2.0 x 2.4 cm. Stage III diastolic dysfunction. Right Ventricle The right ventricle is severely dilated. Right ventricular systolic function is moderately reduced. Atria The left atrium is severely dilated. The right atrium is severely dilated. Aortic Valve The aortic valve is normal in structure and function. No aortic regurgitation is present. There is no aortic valvular stenosis. Mitral Valve The mitral valve is normal in structure. There is mild mitral valve regurgitation noted. There is no mitral valve stenosis. Tricuspid Valve The tricuspid valve is normal in structure and function. There is mild tricuspid valve regurgitation noted. Pulmonic Valve The pulmonary valve is normal in structure. There is no pulmonic valvular regurgitation. Great Vessels The aortic root is normal in size. The inferior vena cava is mildly dilated with a decrease in inspir atory collapse. Pericardium Small anterior pericardial effusion. Conclusion LVEF is <20%. Stage III diastolic dysfunction. There is normal left ventricular wall thickness. The left ventricle is severely dilated. Severe hypokinesis Large apical thrombus is present, 2.0 x 2.4 cm. The right ventricle is severely dilated. Right ventricular systolic function is moderately reduced. The left atrium is severely dilated. The right atrium is severely dilated. There is mild mitral valve regurgitation noted. There is mild tricuspid valve regurgitation noted. Normal pulmonary pressures NO effusion Study quality was adequate
--- NOTE | 2025-01-13 19:24 | CONS ---
CONSULT NOTE: CARDIOLOGY Reason for consult: Cardiomyopathy HPI/story at presentation: This is a pleasant 44-year male with past medical history as per present with complaints of shortness of breath, was diagnosed with CHF exacerbation. He has a known history of cocaine use, Cardiomyopathy ejection fraction 15 to 20% s/p negative cardiac catheterization, 12/2023. No active cardiac complaints of chest discomfort, he does get short of breath with minimal exertion. Has not been able to be compliant with medications at home because of insurance issues. Echo showed LV apical thrombus Subjective: 01/13/2025 sob better Past medical history: See below Allergies, Meds See chart Vitals see chart PHYSICAL EXAMINATION GENERAL: Ao*3 HEENT: Nonicteric sclerae, non traumatic HEART: Regular rate and rhythm with no murmurs LUNGS: Clear to auscultation bilaterally ABDOMEN: No acute issues, non tender GENITAL, RECTAL: deferred SKIN: No rash NEUROLOGIC: NFND EXTREMITIES: MILD BILATERAL EDEMA 06/22/24 ASSESSMENT CARDIOMYOPATHYNONISCHEMIC, In the setting of cocaine use Negative cardiac catheterization, 12/2023 EF of 16%, 12/2023 On spironolactone 25 Jardiance 10 lisinopril 10 Patient is currently not on medications at home because of insurance issues LV APICAL THROMBUS newly diagnosed 12/2024 EXACERBATION OF CHF On IV diuresis, 12/2024 DEVICE IN SITU Previous history of ICD implantation SUBSTANCE USE Previous history of cocaine use, marijuana use No beta-blockers NONSUSTAINED VENTRICULAR TACHYCARDIA On amiodarone HYPERTENSION, TOBACCO USE CORE MEASURES OTHER MEDICAL PROBLEMS Underlying psychiatric illness PLAN 01/13/2025 Patient with known cardiomyopathy, currently having LV apical thrombus. Will start heparin. Continue diuresis, feels better post diuresis seen and examined 01/13/2025 around 8 PM. ATTESTATION I was involved substantially in the care of this patient Number and complexity of problems addressed: One acute illness with systemic symptoms Amount and or complexity of data Review of prior external note(s) from each unique source: 2+ Ordering of each unique test : 0 Review of the result(s) of each unique test: 2+ Assessment requiring an independent historian(s): No Independent interpretation of test performed by another MD/QHCP/appropriate source (not separately reported) : No Discussion of management or test interpretation with external MD/QHCP/appropriate source (not separately reported) : No Risk status (cardiac, billing related): Moderate SIVAGNANAM,KAMESH MD Jan 13, 2025 19:24
[2025-01-13] MEDS ORDERED: diazePAM 5 MG/ML 2 ML SYG IVP PRN (20:00)
[2025-01-13 20:42] LABS: INR 1.42 (0.85-1.15); PROTHROMBIN TIME 14.5 SEC (9.6-11.6)
[2025-01-13 20:44] LABS: PARTIAL THROMBOPLASTIN TIME 29.6 SEC (26.3-35.5)
[2025-01-13] MEDS: HEParin 5,000 UNIT VIAL IV PRN (21:04)
[2025-01-13] MEDS: HEParin 25,000 UNITS/250ML D5W 250 ML IV SCH (21:07)
[2025-01-13] MEDS: PoTASSium chloRIDE 20MEQ ER 20 MEQ ERTAB PO PRN (23:20)
[2025-01-13] MEDS: DOXYCYCLINE HYCLATE 100 MG TABLET PO SCH (23:21)
[2025-01-13] MEDS: FAMOTIDINE 20MG VIAL IV SCH (23:21)
[2025-01-13] MEDS: acetaMINOPHEN 500 MG TABLET PO PRN (23:43)
[2025-01-14] VITALS (15 sets, daily range): BP systolic 103–147; BP diastolic 46–103; PULSE 76–117; RESP 18–36; TEMP 97.3–98.8; O2SAT 96–100
[2025-01-14] MEDS: morPHINE 2 MG SYG IVP PRN (05:14)
[2025-01-14 07:12] LABS: BASOPHILS # (AUTO) 0.01 K/uL (0.00-0.20); BASOPHILS % (AUTO) 0.1 % (0.0-5.0); HEMATOCRIT 46.2 % (42-54); IMMATURE GRANULOCYTE ABSOLUTE 0.09 K/uL (0-1); LYMPHOCYTES # (AUTO) 0.6 K/uL (1.0-4.8); LYMPHOCYTES % (AUTO) 4.7 % (21.0-51.0); MEAN CORPUSCULAR HEMOGLOBIN 30.7 pg (27.0-33.0); MEAN CORPUSCULAR HGB CONC 32.5 g/dL (32.0-36.0); MEAN CORPUSCULAR VOLUME 94.7 fL (79-99); MONOCYTES % (AUTO) 7.5 % (3.0-13.0); NEUTROPHILS # (AUTO) 11.3 K/uL (1.8-7.7); PLATELET COUNT (AUTO) 201 K/uL (130-400); RED BLOOD CELL COUNT(AUTO) 4.88 MIL/uL (4.50-6.20); RED CELL DISTRIBUTION WIDTH 20.5 % (11.0-15.5)
[2025-01-14 07:22] LABS: CREATININE 1.3 mg/dL (0.5-1.3); POTASSIUM 3.6 mmol/L (3.5-5.1)
--- NOTE | 2025-01-14 08:00 | NUR ---
HOME MEDS-PENDING Reminded patient that home meds are still pending to be reviewed/addressed. Patient was asked if there was someone who could bring them in. Patient called his mother who is to bring them after 0900 today. Home meds pending.
[2025-01-14] MEDS ORDERED: ENOXAPARIN SODIUM 30 MG/0.3 ML SQ SCH (09:00)
[2025-01-14] MEDS ORDERED: IOHEXOL-350 75 ML VIAL IV ONE (09:37)
--- NOTE | 2025-01-14 10:10 | HMCIMG ---
CT CHEST PE PROTOCOL WWO CONT HISTORY: Pulmonary embolism COMPARISON: None TECHNIQUE: CT angiography of the chest was performed. The study was performed using angiographic technique with maximum intensity projection reconstruction images. Patient was given 75 cc of Omnipaque through intravenous route. FINDINGS: No CT evidence of filling defect is seen to suggest pulmonary embolus. Aorta is not well opacified limiting evaluation. Mild bilateral pulmonary infiltrates are seen. Small right pleural effusion is seen. The heart is enlarged. No evidence of adrenal mass is seen. Degenerative changes of the spine are noted. IMPRESSION: 1. No CT evidence of acute pulmonary embolus is seen. Mild bilateral pulmonary infiltrates are seen. Small right pleural effusion. CT was performed with one or more following dose reduction techniques: automated exposure control, adjustment of the mA and kv according to patient's size, or use of a iterative reconstruction technique.
--- NOTE | 2025-01-14 10:12 | NUR ---
DCP: HOME with parents Pt reports he lives with his parents, mother Keara Mendoza553 [id number]. Pt on [facility], states for heart failure. Father assists pt with bath set up and stand by assistance. Pt states he is able to complete ADLS home management and meal prep. Mother transports as needed.Pt uses a walker, shower chair and cane as needed. PCP is Dr TROTTER and uses [facility] for rx needs. Pt denies dc needs and sates he will return home with parents at me. Addendum: 01/14/25 at 1017 by MITA ZAMORA Amended: Links added.
[2025-01-14] MEDS: MAGNESIUM 2GM PREMIX 50ML 50 ML IV PRN (10:14)
--- NOTE | 2025-01-14 10:41 | HMCIMG ---
US ABDOMINAL RUQ\E\LTD HISTORY: Pain COMPARISON: None TECHNIQUE: Right upper quadrant abdominal ultrasound study was performed. FINDINGS: Liver measures 15.2 cm. There is right pleural effusion. The visualized portion of the pancreas is within normal limits. Liver is echogenic consistent with liver parenchymal disease. No gallstone is seen. Common duct measures 4 mm. No evidence of gallbladder wall thickening is seen. Right kidney measures 8.4 x 3.9 x 4.7 cm. No hydronephrosis is seen of the right kidney. IMPRESSION: 1. No gallstones or ductal dilatation is seen. Right pleural effusion. 2. No hydronephrosis is seen.
[2025-01-14] MEDS: IpraTROPium 0.5 MG/2.5 ML INH IH SCH (11:31)
[2025-01-14] MEDS: furoSEMIDE 40MG VIAL IV ONE (12:09)
--- NOTE | 2025-01-14 12:37 | CONS ---
[facility] CONSULTATION NOTE Date Patient Seen: Jan 14, 2025 Time of Visit: 12:37 Supervising Physician: Dr.Jairo Wynn Reason for Consultation: Pneumonia PROBLEM LIST: Acute hypoxemic respiratory failure Community acquired pneumonia Large apical thrombus Acute combined CHF, LVEF 30-35% Troponin elevation AICD status Diabetes mellitus type Hypertension COPD without exacerbation Seizures Polysubstance abuse (+) THC, cocaine Medical noncompliance HPI: 44year old male with past medical history of CHF with history of AICD/pacemaker placement, history of COPD, diabetes mellitus type, hypertension who presented to the hospital secondary to cough, shortness of breath. Patient stated that for the past two weeks he has been having productive cough with sputum production he has noted fever, chills at home. He states he has been compliant with his medications including Lasix. He denies any lower extremity swelling. He states he has a history of seizure and had one episode of seizure around two weeks ago. He is not taking any seizure medications. He started states he lost consciousness but is unable to state if he had any jerking movements. He has not seen a neurologist recently. Denied any falls, syncopal episode. He uses a cane for ambulation. States his mom was sick. 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 States he sees Dr. Serra as outpatient. One month ago he was hospitalized in [place] where he states he needed fluid to be drained from his abdomen. Labs showed white count of 9.2, hemoglobin is 15.3, platelet count was 223k, sodium was 139, potassium was 3.4, creatinine was 1.2, chloride was 106, troponin 9 elevated at 97.He was admitted by hospitalist and cardiology was consulted. BIS was consulted due to pneumonia. Upon assessment, patient is AAOX3. Currently on 02@2LPM via [place]. Complain of SOB with exertion. Had episode of minimal blood tinged sputum x 1. Currently on heparin drip for large apical clot. Advised nurse to stop heparin drip if episode of bright red blood hemoptysis occurred. CTA chest ordered to rule out PE due to large apical clot. CTA chest negative for PE but does show mild bilateral pulmonary infiltrates are seen. Small right pleural effusion. COVID and influenza negative. ABG shows PH 7.530, PCO2 23. PO2 97.9. Denies any chest pain, abdominal pain, nausea or vomiting. Advised on polysubstance abuse cessation, verbalized understanding. High risk for decompensation. Thank you for the consult, we will continue to follow. Plan: Start on Atrovent and Pulmicort Okay to continue with heparin drip, stop if hemoptysis occurs Continue on IV ABX, sputum culture Follow cardiology recommendations Continue on IV Lasix Supplemental 02 as needed. Maintain aspiration precautions at all times Further recommendations to follow Thank you for the consult, we will continue to follow. Please call if any questions. PAST MEDICAL HX: see above PAST SURGICAL HX: noncontributory SOCIAL HISTORY: No tobacco, ETOH, or illicit drug use Coded Allergies: No Known Drug Allergies (Unverified Allergy, Unknown, 12/28/23) REVIEW OF SYSTEMS: 12 point ROS reviewed with patient. Pertinent positives mentioned above. Otherwise negative. PHYSICAL EXAM: GENERAL: alert, weak, awake oriented x 3 HEENT: EOMI, Sclera non icteric, moist mucosa NECK: Supple, no JVD, trachea midline LUNGS: Clear breath sounds bilaterally. No wheezes HEART: Regular rate and rhythm. Normal S1 and S2, without murmurs ABD: Abdomen soft, nontender. Bowel sounds present EXT: No clubbing cyanosis or edema NEURO: Alert and oriented to person, follows commands Vital Signs (last 8hr) Date Time Temp Pulse Resp B/P (MAP) Pulse Ox O2 Delivery O2 Flow Rate FiO2 01/14/25 11:33 107 20 01/14/25 11:33 107 20 N/Cannula Low lpm 2.0 01/14/25 11:00 97.5 117 20 147/95 99 Nasal Cannula 2.0 01/14/25 07:00 98.2 110 20 129/89 100 Nasal Cannula 2.0 01/14/25 06:50 104 36 N/Cannula Low lpm 2.0 01/14/25 06:48 104 36 LABS: Hematology Labs: Test 01/14/25 06:59 01/13/25 08:41 Range/Units White Blood Count 13.0 #H 4.8-10.8 K/uL Red Blood Count 4.88 4.50-6.20 MIL/uL Hemoglobin 15.0 14.0-18.0 g/dL Hematocrit 46.2 42-54 % Mean Corpuscular Volume 94.7 79-99 fL Mean Corpuscular Hemoglobin 30.7 27.0-33.0 pg Mean Corpuscular Hemoglobin Concent 32.5 32.0-36.0 g/dL Red Cell Distribution Width 20.5 H 11.0-15.5 % Platelet Count 201 130-400 K/uL Mean Platelet Volume 12.0 H 7.5-10.5 fL Immature Granulocyte % (Auto) 0.7 0-1 % Neutrophils (%) (Auto) 87.0 H 40.0-77.0 % Lymphocytes (%) (Auto) 4.7 L 21.0-51.0 % Monocytes (%) (Auto) 7.5 3.0-13.0 % Eosinophils (%) (Auto) 0.0 0.0-8.0 % Basophils (%) (Auto) 0.1 0.0-5.0 % Neutrophils # (Auto) 11.3 H 1.8-7.7 K/uL Lymphocytes # (Auto) 0.6 L 1.0-4.8 K/uL Monocytes # (Auto) 1.0 0.1-1.0 K/uL Eosinophils # (Auto) 0.00 0.00-0.70 K/uL Basophils # (Auto) 0.01 0.00-0.20 K/uL Absolute Immature Granulocyte (auto 0.09 0-1 K/uL Nucleated Red Blood Cells 0.0 0.0-0.19 % White Cell Morphology Comment See comments Red Blood Cell Morphology ANISO 1+ Chemistry Labs: Test 01/14/25 06:59 01/13/25 17:11 01/13/25 12:59 01/13/25 11:35 Range/Units Sodium Level 142 136-145 mmol/L Potassium Level 3.6 3.5-5.1 mmol/L Chloride Level 105 101-111 mmol/L Carbon Dioxide Level 24 21-32 mmol/L Blood Urea Nitrogen 29 H 7-18 mg/dL Creatinine 1.3 0.5-1.3 mg/dL Glomerular Filtration Rate Calc 69 >90 mL/min Random Glucose 144 H 70-105 mg/dL Total Calcium 9.0 8.5-10.1 mg/dL Magnesium Level 1.80 1.80-2.40 mg/dL Troponin I High Sensitivity 93 *H 4-75 ng/L Lactic Acid Level 2.5 0.8-2.5 mmol/L Hemoglobin A1c 5.9 4.0-6.0 % Estimated Average Glucose (eAG) 123 70-126 mg/dL C-Reactive Protein, Quantitative 15.40 H 0.5-3.0 mg/L UG-Lil-R-Type Natriuretic Peptide 30586 H 0-125 pg/mL Procalcitonin < 0.05 L 0.05-0.5 ng/mL Thyroid Stimulating Hormone (TSH) 3.12 0.36-3.74 uIU/mL Test 01/13/25 08:41 Range/Units Total Creatine Kinase 47 # 21-232 U/L Coagulation Labs: Test 01/14/25 11:19 01/13/25 20:08 Range/Units Activated Partial Thromboplast Time 55.5 H 26.3-35.5 SEC Prothrombin Time 14.5 H 9.6-11.6 SEC Prothromb Time International Ratio 1.42 H 0.85-1.15 DIAGNOSTICS / RADIOLOGY RESULTS: PROCEDURE: CHES PE - CT CHEST PE PROTOCOL WWO CONT CT CHEST PE PROTOCOL WWO CONT HISTORY: Pulmonary embolism COMPARISON: None TECHNIQUE: CT angiography of the chest was performed. The study was performed using angiographic technique with maximum intensity projection reconstruction images. Patient was given 75 cc of Omnipaque through intravenous route. FINDINGS: No CT evidence of filling defect is seen to suggest pulmonary embolus. Aorta is not well opacified limiting evaluation. Mild bilateral pulmonary infiltrates are seen. Small right pleural effusion is seen. The heart is enlarged. No evidence of adrenal mass is seen. Degenerative changes of the spine are noted. IMPRESSION: 1. No CT evidence of acute pulmonary embolus is seen. Mild bilateral pulmonary infiltrates are seen. Small right pleural effusion. CT was performed with one or more following dose reduction techniques: automated exposure control, adjustment of the mA and kv according to patient's size, or use of a iterative reconstruction technique. Disposition: Per primary team Other: Total patient care time exceeds 35 minutes excluding all procedures. JERO WYNN NP Jan 14, 2025 12:37
--- NOTE | 2025-01-14 13:33 | PN ---
[facility] PROGRESS NOTE Date of Service: Jan 14, 2025 Time of Service: 13:25 SUBJECTIVE: 44 year old male with past medical history of CHF with history of AICD/pacemaker placement, history of COPD, diabetes mellitus type, hypertension who presented to the hospital secondary to cough, shortness of breath. Patient states for the past two weeks he has been having productive cough with sputum production he has noted fever, chills at home. He has also noted shortness of breath which is present at rest and with exertion. He states he has been compliant with his medications including Lasix. He denies any lower extremity swelling. He also complains of numbness in the right foot. He states he has a history of seizure and had one episode of seizure around two weeks ago. He is not taking any seizure medications. He started states he lost consciousness but is unable to state if he had any jerking movements. He has not seen a neurologist recently. Denied any falls, syncopal episode. He uses a cane for ambulation denied any sick contacts at home. 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 He sees Dr. Serra as outpatient. One month ago he was hospitalized in [place] where he states he needed fluid to be drained from his abdomen. Labs showed white count of 9.2, hemoglobin is 15.3, platelet count was 223k, sodium was 139, potassium was 3.4, creatinine was 1.2, chloride was 106, troponin 9 elevated at 97 01/14/2025 - patient is seen at bedside in room 224, patient is alert, awake, oriented to time place person. He informed that he started having hemoptysis. Patient is currently started on heparin due to apical thrombus found on echocardiogram . Patient is currently tachycardic at heart rate 107, respiratory rate 20, blood pressure 147/95 , saturating at 99% on 2 L nasal cannula. ABG and lactic acid will be repeated. there Is no pedal edema. We will increase the Lasix dose to 40 mg b.i.d.. Awaiting consults recommendations. We will monitor the patient closely . REVIEW OF SYSTEMS CONSTITUTIONAL: Denies fevers, chills, or night sweats. No unintentional weight loss reported. NEUROLOGICAL: Denies headache, amaurosis fugax, motor weakness, sensory deficit, vertigo/spinning sensation, gait abnormalities, or tremors. ENT: No hearing loss, otalgia, otorrhea, rhinitis, rhinorrhea, hoarseness, or sore throat. CARDIOVASCULAR: Denies any exertional angina, dyspnea on exertion, orthopnea, paroxysmal nocturnal dyspnea, palpitations, life-threatening arrhythmias, claudication. PULMONARY: Cough, shortness of breath, sputum production GASTROINTESTINAL: Positive for abdominal pain. Denied any nausea, vomiting, diarrhea. Positive for constipation GENITOURINARY: Denies frequency, urgency, nocturia, hematuria or incontinence (Storage/Irritative symptoms.) Low urinary stream, straining to void, urinary intermittency or hesitancy, splitting of the voiding stream, terminal dribbling. ENDOCRINOLOGIC: Denies polyuria, polydipsia, polyphagia or heat/cold int olerances. HEMATOLOGIC: Denies thrombophilia/previous clots, or coagulopathy/bleeding disorders. ONCOLOGIC: Denies personal history of malignancy. DERMATOLOGIC: Denies rashes or pruritus. PSYCHIATRIC: Denies any suicidal or homicidal ideation. Denies hallucinations. PHYSICAL EXAM GENERAL APPEARANCE: The patient is awake, alert, and oriented, in no acute cardiopulmonary distress. NEUROLOGICAL: Cranial nerves II-XII grossly intact. Motor is 5/5 in bilateral upper and lower extremities proximal to distal. No sensory deficits. HEENT: Face is symmetric. Pupils are equal and reactive. Extraocular movements are intact. NECK: Supple. No JVD. No thyromegaly. No submental, submandibular, pre- /postauricular, occipital or supraclavicular lymphadenopathy. CHEST: Normal chest expansion. No Telemetry. LUNGS: Absence of any rales, rhonchi or any wheezing. CARDIOVASCULAR: Regular. S1 and S2 normal. No appreciable rubs, murmurs or gallops. ABDOMEN: Soft, mild generalized tenderness on palpation no rebound, no guarding present. : Deferred. No [place]. EXTREMITIES: Non-edematous and not cyanotic. No clubbing. Good capillary refill. SKIN: No skin breakdown. Vital Signs (last 8hr) Date Time Temp Pulse Resp B/P (MAP) Pulse Ox O2 Delivery O2 Flow Rate FiO2 01/14/25 11:33 107 20 01/14/25 11:33 107 20 N/Cannula Low lpm 2.0 01/14/25 11:00 97.5 117 20 147/95 99 Nasal Cannula 2.0 01/14/25 07:00 98.2 110 20 129/89 100 Nasal Cannula 2.0 01/14/25 06:50 104 36 N/Cannula Low lpm 2.0 01/14/25 06:48 104 36 LABS: Laboratory: Test 01/14/25 11:19 01/14/25 06:59 01/13/25 20:08 01/13/25 17:11 Range/Units Activated Partial Thromboplast Time 55.5 H 26.3-35.5 SEC White Blood Count 13.0 #H 4.8-10.8 K/uL Red Blood Count 4.88 4.50-6.20 MIL/uL Hemoglobin 15.0 14.0-18.0 g/dL Hematocrit 46.2 42-54 % Mean Corpuscular Volume 94.7 79-99 fL Mean Corpuscular Hemoglobin 30.7 27.0-33.0 pg Mean Corpuscular Hemoglobin Concent 32.5 32.0-36.0 g/dL Red Cell Distribution Width 20.5 H 11.0-15.5 % Platelet Count 201 130-400 K/uL Mean Platelet Volume 12.0 H 7.5-10.5 fL Immature Granulocyte % (Auto) 0.7 0-1 % Neutrophils (%) (Auto) 87.0 H 40.0-77.0 % Lymphocytes (%) (Auto) 4.7 L 21.0-51.0 % Monocytes (%) (Auto) 7.5 3.0-13.0 % Eosinophils (%) (Auto) 0.0 0.0-8.0 % Basophils (%) (Auto) 0.1 0.0-5.0 % Neutrophils # (Auto) 11.3 H 1.8-7.7 K/uL Lymphocytes # (Auto) 0.6 L 1.0-4.8 K/uL Monocytes # (Auto) 1.0 0.1-1.0 K/uL Eosinophils # (Auto) 0.00 0.00-0.70 K/uL Basophils # (Auto) 0.01 0.00-0.20 K/uL Absolute Immature Granulocyte (auto 0.09 0-1 K/uL Nucleated Red Blood Cells 0.0 0.0-0.19 % White Cell Morphology Comment See comments Sodium Level 142 136-145 mmol/L Potassium Level 3.6 3.5-5.1 mmol/L Chloride Level 105 101-111 mmol/L Carbon Dioxide Level 24 21-32 mmol/L Blood Urea Nitrogen 29 H 7-18 mg/dL Creatinine 1.3 0.5-1.3 mg/dL Glomerular Filtration Rate Calc 69 >90 mL/min Random Glucose 144 H 70-105 mg/dL Total Calcium 9.0 8.5-10.1 mg/dL Magnesium Level 1.80 1.80-2.40 mg/dL Prothrombin Time 14.5 H 9.6-11.6 SEC Prothromb Time International Ratio 1.42 H 0.85-1.15 Troponin I High Sensitivity 93 *H 4-75 ng/L Test 01/13/25 17:03 01/13/25 12:59 01/13/25 11:35 01/13/25 11:12 Range/Units Urine Color YELLOW YELLOW Urine Appearance CLEAR CLEAR Urine pH 5.5 5.0-8.0 Urine Specific [place] 1.015 1.001-1.031 Urine Protein 100 H NEGATIVE mg/dL Urine Glucose (UA) NEGATIVE NEGATIVE mg/dL Urine Ketones NEGATIVE NEGATIVE mg/dL Urine Occult Blood NEGATIVE NEGATIVE Urine Nitrate NEGATIVE NEGATIVE Urine Bilirubin NEGATIVE NEGATIVE mg/dL Urine Urobilinogen 0.2 0.2-1.0 mg/dL Urine Leukocyte Esterase NEGATIVE NEGATIVE Ty/uL Urine RBC 2-5 H 0-1 /HPF Urine WBC 2-5 H 0-1 /HPF Urine Squamous Epithelial Cells RARE 0-2 /HPF Urine Bacteria None None Seen /HPF Urine Hyaline Casts 6-10 H 0-1 /LPF /LPF Urine Opiates Screen NEGATIVE NEGATIVE Urine Barbiturates Screen NEGATIVE NEGATIVE Urine Phencyclidine Screen NEGATIVE NEGATIVE Urine Amphetamines Screen NEGATIVE NEGATIVE Urine Benzodiazepines Screen NEGATIVE NEGATIVE Urine Cocaine Screen POSITIVE H NEGATIVE Urine Marijuana (THC) Screen POSITIVE H NEGATIVE Lactic Acid Level 2.5 0.8-2.5 mmol/L Hemoglobin A1c 5.9 4.0-6.0 % Estimated Average Glucose (eAG) 123 70-126 mg/dL C-Reactive Protein, Quantitative 15.40 H 0.5-3.0 mg/L AZ-Ogg-G-Type Natriuretic Peptide 48634 H 0-125 pg/mL Procalcitonin < 0.05 L 0.05-0.5 ng/mL Thyroid Stimulating Hormone (TSH) 3.12 0.36-3.74 uIU/mL Blood Gas Specimen Type Arterial Arterial Blood pH 7.530 H 7.350-7.450 Arterial Blood Partial Pressure CO2 23 L 35-48 mmHg Arterial Blood Partial Pressure O2 97.9 83.0-108.0 mmHg Arterial Blood HCO3 18.6 L 21.0-28.0 mmol/L Arterial Blood Oxygen Saturation 98.2 H 94.0-98.0 % Arterial Blood Base Excess -1.9 -2.0-3.0 mmol/L Blood Gas Temperature 37.0 35.5-37.0 CELSIUS Blood Gas Flow-by 2.00 0.00-15.00 L/min Blood Gas Vent Mode RA ROOM AIR FiO2 28.0 % Blood Gas Specimen Comment LR,ALEX Test 01/13/25 08:42 01/13/25 08:41 Range/Units Influenza Type A Antigen Negative For Type A NEGATIVE Influenza Type B Antigen Negative For Type B NEGATIVE SARS-CoV-2, RNA, NAAT NEGATIVE SARS CoV-2 NEGATIVE Group A Streptococcus Rapid negative NEGATIVE Red Blood Cell Morphology ANISO 1+ Total Creatine Kinase 47 # 21-232 U/L Current Medications Medications (Trade) Dose Ordered Sig/Sarah Route PRN Reason Start Time Stop Time Status Last Admin Dose Admin Acetaminophen (TYLenol 500MG TAB) 500 mg Q6H PRN PO MILD PAIN (1-3) 01/13/25 11:00 02/12/25 10:59 01/13/25 23:43 500 MG Azithromycin 250 ml @ 250 mls/hr Q24H IVPB 01/13/25 10:00 01/13/25 14:02 DC 01/13/25 10:11 250 MLS/HR Budesonide (Pulmicort 0.5 Mg/2ml) 0.5 mg BIDRESP IH 01/14/25 18:00 02/13/25 17:59 Carvedilol (Coreg 3.125MG) 3.125 mg BID PO 01/14/25 21:00 02/13/25 20:59 Diazepam (VALium 5 MG/ML 2 ML SYG) 5 mg Q2HPRN PRN IVP SEIZURE LASTING MORE THAN 5 MINUTES 01/13/25 20:00 01/20/25 19:59 Doxycycline Hyclate (Doxycycline Hyclate) 100 mg BID PO 01/13/25 21:00 01/23/25 20:59 01/14/25 10:12 100 MG Enoxaparin Sodium (Lovenox) 30 mg DAILY SQ 01/14/25 09:00 01/13/25 19:28 DC Famotidine (Pepcid 20mg Vial) 20 mg BID IV 01/13/25 21:00 02/12/25 20:59 01/14/25 10:12 20 MG Furosemide (LASix 20MG VIAL) 20 mg Q8H IV 01/13/25 12:00 01/14/25 13:16 DC 01/14/25 03:29 20 MG Furosemide (LASix 40MG VIAL) 40 mg BID IV 01/14/25 18:00 02/13/25 17:59 Heparin Sodium (Porcine) (HEParin 5,000 UNIT VIAL) *calculation based on ACTUAL B... AD PRN IV HEPARIN PROTOCOL 01/13/25 20:30 02/12/25 20:29 01/13/25 21:04 5,000 UNIT Heparin Sodium/ Dextrose 250 ml @ 0 mls/hr Q6H IV 01/13/25 20:30 02/12/25 20:29 01/13/25 21:07 0 MLS/HR Ipratropium [place] (AtrovENT UD) 0.5 MG [id number] IH 01/14/25 12:00 02/13/25 11:59 01/14/25 11:31 0.5 MG Ipratropium [place] (AtrovENT UD) 1 mg Q6H PRN IH SHORTNESS OF BREATH 01/13/25 11:00 02/12/25 10:59 01/14/25 06:46 0.5 MG Lactulose (Constulose 20gm/ 30ml Udcup) 20 gm BID PRN PO CONSTIPATION 01/13/25 14:00 02/12/25 13:59 Magnesium Sulfate 50 ml @ 0 mls/hr PROTOCOL PRN IV hypomagnesemia 01/13/25 11:00 02/12/25 10:59 01/14/25 10:14 25 MLS/HR Morphine Sulfate (morPHINE 2MG SYG) 2 mg Q6H PRN IVP SEVERE PAIN (7-10) 01/13/25 11:00 01/20/25 10:59 01/14/25 05:14 2 MG Piperacillin Sod/ Tazobactam Sod (Zosyn 3.375gm+NS 50ml) 3.375 gm Q8H IVPB 01/13/25 11:30 01/23/25 11:29 01/14/25 11:36 3.375 GM Potassium Chloride 100 ml @ 100 mls/hr AD PRN IV POTASSIUM PROTOCOL 01/13/25 11:00 02/12/25 10:59 01/13/25 17:24 100 MLS/HR Potassium Chloride (K-Dur/Klor-Con 20meq) 20 meq AD PRN PO POTASSIUM PROTOCOL 01/13/25 11:00 02/12/25 10:59 01/14/25 10:13 20 MEQ Potassium Chloride (KCl 10% Elixir 20meq/15ml) 20 meq AD PRN PO POTASSIUM PROTOCOL 01/13/25 11:00 02/12/25 10:59 Sodium Chloride (NS 50ml) 50 ml AD IV 01/13/25 11:30 01/13/25 10:54 DC DIAGNOSTICS / RADIOLOGY: PATIENT: GOLDIE CUNNINGHAM MR#: [id number] : 1980 SEX: M AGE: 44 LOCATION: 2DH ORDER [id number] STATUS: ADM IN REPORT#: [id number] SERVICE [id number] REASON: rule out PE, has large apical thrombus ORDERING PHYSICIAN: JERO TEIXEIRA BAKER TEST PROCEDURE: CHES PE - CT CHEST PE PROTOCOL WWO CONT CT CHEST PE PROTOCOL WWO CONT HISTORY: Pulmonary embolism COMPARISON: None TECHNIQUE: CT angiography of the chest was performed. The study was performed using angiographic technique with maximum intensity projection reconstruction images. Patient was given 75 cc of Omnipaque through intravenous route. FINDINGS: No CT evidence of filling defect is seen to suggest pulmonary embolus. Aorta is not well opacified limiting evaluation. Mild bilateral pulmonary infiltrates are seen. Small right pleural effusion is seen. The heart is enlarged. No evidence of adrenal mass is seen. Degenerative changes of the spine are noted. IMPRESSION: 1. No CT evidence of acute pulmonary embolus is seen. Mild bilateral pulmonary infiltrates are seen. Small right pleural effusion. CT was performed with one or more following dose reduction techniques: automated exposure control, adjustment of the mA and kv according to patient's size, or use of a iterative reconstruction technique. DICTATED BY: HERBER RAYMOND MD DATE: 01/14/25 1005 ELECTRONICALLY SIGNED BY: HERBER RAYMOND MD DATE: 01/14/25 1010 PATIENT: GOLDIE CUNNINGHAM MR#: [id number] : 1980 SEX: M AGE: 44 LOCATION: 2DH ORDER [id number] STATUS: ADM IN REPORT#: [id number] SERVICE [id number] REASON: assess liver and gall bladder ORDERING PHYSICIAN: LENKA PRESTON MD PROCEDURE: [id number] - US ABDOMINAL RUQ\LTD US ABDOMINAL RUQ\E\LTD HISTORY: Pain COMPARISON: None TECHNIQUE: Right upper quadrant abdominal ultrasound study was performed. FINDINGS: Liver measures 15.2 cm. There is right pleural effusion. The visualized portion of the pancreas is within normal limits. Liver is echogenic consistent with liver parenchymal disease. No gallstone is seen. Common duct measures 4 mm. No evidence of gallbladder wall thickening is seen. Right kidney measures 8.4 x 3.9 x 4.7 cm. No hydronephrosis is seen of the right kidney. IMPRESSION: 1. No gallstones or ductal dilatation is seen. Right pleural effusion. 2. No hydronephrosis is seen. DICTATED BY: HERBER RAYMOND MD DATE: 01/14/25 1039 ELECTRONICALLY SIGNED BY: HERBER RAYMOND MD DATE: 01/14/25 1041 ASSESSMENT: Community acquired pneumonia POA Acute hypoxic respiratory failure secondary to community-acquired pneumonia Suspected acute on chronic CHF exacerbation with systolic and diastolic dysfunc tion with EF of 30-35% Troponin elevation likely in setting of type 2 PR Medical noncompliance History of cocaine use Hypertension Diabetes mellitus type 2 COPD Abdominal Pain Right foot pain and paresthesias History of Seizures not on medications PLAN: - patient to be admitted to PCCU -in reference to community-acquired pneumonia patient will be started on Zosyn and doxycycline. Obtain a sputum culture, sample we will request a pulmonary consultation -in reference to CHF exacerbation. We will trend troponins q.6 hours to rule out ACS. We will request consultation with Cardiology. Obtain echocardiogram -obtain home medications which will be reconciled once available -check TSH, A1c, procaine, CRP -obtain a foot x-ray -obtain a CT head. Obtain a CT abdomen for further evaluation of abdominal pain. - we will request consultation with Neurology due to history of seizures. Follow up with the ABG and lactic acid Chest PE protocol turned out to be negative Echocardiogram reveals apical thrombus Lasix increased to 40 mg IV b.i.d. Carvedilol 3.125 b.i.d. to be added to the treatment Continue heparin according to the consults recommendations Pending Cardiology, Neurology recommendations. ATTESTATION BY PHYSICIAN I have seen and examined the patient. I reviewed the documentation, medical decision making, and treatment plan as noted by the resident provider above. I agree with the findings and plan of care. Matt Snell MD, KEERTI K MD Jan 14, 2025 13:33
[2025-01-14 14:46] LABS: ABG BASE EXCESS -0.5 mmol/L (-2.0-3.0); ABG HCO3 22.8 mmol/L (21.0-28.0); ABG OXYGEN SATURATION 97.7 % (94.0-98.0); ABG PCO2 34 mmHg (35-48); ABG PH 7.448 (7.350-7.450); PO2, ARTERIAL BG 97.1 mmHg (83.0-108.0); VENT MODE, BG NC (ROOM AIR)
--- NOTE | 2025-01-14 15:59 | CONS ---
CONSULTATION NOTE Date of Service: Jan 14, 2025 Reason for Consultation: eval seizures Requesting Physician: Hospitalist HISTORY OF PRESENT ILLNESS: Mr. Xavi Mendoza, a 44-year-old right-handed male with a history of congestive heart failure, AICD/pacemaker, COPD, diabetes mellitus type 2, and hypertension, presents for neurological evaluation of seizures that began in . The patient reports his first seizure occurred about a week before his first heart attack in . Initially, he experienced migraines with a sensation of pressure in his frontal hinduism, accompanied by visual disturbances including white spots and blurry vision. During one episode, he lost consciousness while sleeping on a bench and was found by bystanders who called an ambulance. He has no recollection of the event. In another incident, he lost consciousness in a restroom, falling onto a toilet handle. Witnesses reported convulsions, inability to open his mouth, and his fingers being "stuck in light." Since 2020, the patient estimates he has had 8-9 seizure episodes, possibly more. He admits to cocaine use around the time of his most recent seizure two weeks ago. The patient also reports experiencing white spots in his vision when going from indoors to outdoors, which he attributes to heat. He describes significant fatigue and weakness, stating his endurance is "gone." The patient reports difficulty with mobility, unable to walk from his living room to his mailbox or climb stairs due to shortness of breath. The patient discloses a history of homelessness and substance use, including cocaine and marijuana. He uses marijuana to stimulate his appetite. He denies current use of synthetic marijuana, reporting a "bad episode" with it in the past. The patient mentions recent diagnoses of blood clots and experiences pain with bowel movements. Mr. Mendoza expresses concern about his overall health, stating he was told he has 2-3 years to live without open-heart surgery. This prognosis has influenced his attitude towards substance use, though he now expresses a desire to quit due to his declining health. Medical History - Seizures, with 8-9 episodes since 2020 - Congestive heart failure - Pacemaker - Chronic obstructive pulmonary disease (COPD) - Diabetes mellitus type 2 - Hypertension - Migraines - Heart attack in 2020 - Blood clots Medications and Supplements - Cocaine - Used recently, associated with seizures - Marijuana - Used to stimulate appetite Social History - Substance Use: Current cocaine use; history of synthetic marijuana use; current cannabis use for appetite stimulation - Living Situation: History of homelessness (prior to 2020) REVIEW OF SYSTEMS Review of Systems General: Positive for fatigue, decreased endurance. HEENT: Positive for white spots in vision, blurry vision. Cardiovascular: Positive for shortness of breath. Gastrointestinal: Positive for pain with defecation, decreased appetite. Neurological: Positive for migraines, seizures with convulsions, loss of consciousness. Psychiatric: Positive for feeling "not there" during episodes. PAST MEDICAL HISTORY: As above PAST SURGICAL HISTORY: None PAST SOCIAL HISTORY: Current alcohool, benzos and cocaine abuse FAMILY HISTORY: None Coded Allergies: No Known Drug Allergies (Unverified Allergy, Unknown, 12/28/23) PHYSICAL EXAM EYES: Anicteric. Pupils equal and reactive. HENT: No oral thrush seen, moist Oral mucosa NECK: Supple, no JVD or thyromegaly. LUNGS: Good air entry. No rales, no rhonchi. CARDIOVASCULAR: S1, S2 regular. No murmur heard. ABDOMEN: Soft, non tender, bowel sounds present, no organomegaly CENTRAL NERVOUS SYSTEM: Awake, alert, oriented x 3. No focal deficits. SKIN: No rashes, no swelling. LYMPHATICS: No peripheral lymphadenopathy MUSCULOSKELETAL: No joint swelling, erythema or tenderness. EXTREMITIES: No cyanosis or clubbing BACK: No deformity, no pressure ulcer. GENITOURINARY: No dysuria or hematuria Vital Sign (Last 24 Hours) 01/13/25 01/14/25 20:00 15:30 Temp 97.5 Pulse 111 Resp 21 B/P (MAP) 115/92 Pulse Ox 99 O2 Delivery Nasal Cannula O2 Flow Rate 2.0 FiO2 28 Intake & Output (last 24hrs) 01/13/25 01/13/25 01/14/25 14:59 22:59 06:59 Intake Total 481.7 ml Output Total 200 ml 550 ml Balance -200 ml -68.3 ml LABS: Laboratory: Test 01/14/25 14:44 01/14/25 13:37 01/14/25 11:19 01/14/25 06:59 Range/Units Blood Gas Specimen Type Arterial Arterial Blood pH 7.448 7.350-7.450 Arterial Blood Partial Pressure CO2 34 L 35-48 mmHg Arterial Blood Partial Pressure O2 97.1 83.0-108.0 mmHg Arterial Blood HCO3 22.8 21.0-28.0 mmol/L Arterial Blood Oxygen Saturation 97.7 94.0-98.0 % Arterial Blood Base Excess -0.5 -2.0-3.0 mmol/L Blood Gas Temperature 37.0 35.5-37.0 CELSIUS Blood Gas Flow-by 2.00 0.00-15.00 L/min Blood Gas Vent Mode NC ROOM AIR FiO2 28.0 % Blood Gas Specimen Comment LR NORIS- JADE Lactic Acid Level 2.0 0.8-2.5 mmol/L Activated Partial Thromboplast Time 55.5 H 26.3-35.5 SEC White Blood Count 13.0 #H 4.8-10.8 K/uL Red Blood Count 4.88 4.50-6.20 MIL/uL Hemoglobin 15.0 14.0-18.0 g/dL Hematocrit 46.2 42-54 % Mean Corpuscular Volume 94.7 79-99 fL Mean Corpuscular Hemoglobin 30.7 27.0-33.0 pg Mean Corpuscular Hemoglobin Concent 32.5 32.0-36.0 g/dL Red Cell Distribution Width 20.5 H 11.0-15.5 % Platelet Count 201 130-400 K/uL Mean Platelet Volume 12.0 H 7.5-10.5 fL Immature Granulocyte % (Auto) 0.7 0-1 % Neutrophils (%) (Auto) 87.0 H 40.0-77.0 % Lymphocytes (%) (Auto) 4.7 L 21.0-51.0 % Monocytes (%) (Auto) 7.5 3.0-13.0 % Eosinophils (%) (Auto) 0.0 0.0-8.0 % Basophils (%) (Auto) 0.1 0.0-5.0 % Neutrophils # (Auto) 11.3 H 1.8-7.7 K/uL Lymphocytes # (Auto) 0.6 L 1.0-4.8 K/uL Monocytes # (Auto) 1.0 0.1-1.0 K/uL Eosinophils # (Auto) 0.00 0.00-0.70 K/uL Basophils # (Auto) 0.01 0.00-0.20 K/uL Absolute Immature Granulocyte (auto 0.09 0-1 K/uL Nucleated Red Blood Cells 0.0 0.0-0.19 % White Cell Morphology Comment See comments Sodium Level 142 136-145 mmol/L Potassium Level 3.6 3.5-5.1 mmol/L Chloride Level 105 101-111 mmol/L Carbon Dioxide Level 24 21-32 mmol/L Blood Urea Nitrogen 29 H 7-18 mg/dL Creatinine 1.3 0.5-1.3 mg/dL Glomerular Filtration Rate Calc 69 >90 mL/min Random Glucose 144 H 70-105 mg/dL Total Calcium 9.0 8.5-10.1 mg/dL Magnesium Level 1.80 1.80-2.40 mg/dL Test 01/13/25 20:08 01/13/25 17:11 01/13/25 17:03 01/13/25 11:35 Range/Units Prothrombin Time 14.5 H 9.6-11.6 SEC Prothromb Time International Ratio 1.42 H 0.85-1.15 Troponin I High Sensitivity 93 *H 4-75 ng/L Urine Color YELLOW YELLOW Urine Appearance CLEAR CLEAR Urine pH 5.5 5.0-8.0 Urine Specific [place] 1.015 1.001-1.031 Urine Protein 100 H NEGATIVE mg/dL Urine Glucose (UA) NEGATIVE NEGATIVE mg/dL Urine Ketones NEGATIVE NEGATIVE mg/dL Urine Occult Blood NEGATIVE NEGATIVE Urine Nitrate NEGATIVE NEGATIVE Urine Bilirubin NEGATIVE NEGATIVE mg/dL Urine Urobilinogen 0.2 0.2-1.0 mg/dL Urine Leukocyte Esterase NEGATIVE NEGATIVE Ty/uL Urine RBC 2-5 H 0-1 /HPF Urine WBC 2-5 H 0-1 /HPF Urine Squamous Epithelial Cells RARE 0-2 /HPF Urine Bacteria None None Seen /HPF Urine Hyaline Casts 6-10 H 0-1 /LPF /LPF Urine Opiates Screen NEGATIVE NEGATIVE Urine Barbiturates Screen NEGATIVE NEGATIVE Urine Phencyclidine Screen NEGATIVE NEGATIVE Urine Amphetamines Screen NEGATIVE NEGATIVE Urine Benzodiazepines Screen NEGATIVE NEGATIVE Urine Cocaine Screen POSITIVE H NEGATIVE Urine Marijuana (THC) Screen POSITIVE H NEGATIVE Hemoglobin A1c 5.9 4.0-6.0 % Estimated Average Glucose (eAG) 123 70-126 mg/dL C-Reactive Protein, Quantitative 15.40 H 0.5-3.0 mg/L MC-[id number]-Type Natriuretic Peptide 66469 H 0-125 pg/mL Procalcitonin < 0.05 L 0.05-0.5 ng/mL Thyroid Stimulating Hormone (TSH) 3.12 0.36-3.74 uIU/mL Test 01/13/25 08:42 01/13/25 08:41 Range/Units Influenza Type A Antigen Negative For Type A NEGATIVE Influenza Type B Antigen Negative For Type B NEGATIVE SARS-CoV-2, RNA, NAAT NEGATIVE SARS CoV-2 NEGATIVE Group A Streptococcus Rapid negative NEGATIVE Red Blood Cell Morphology ANISO 1+ Total Creatine Kinase 47 # 21-232 U/L DIAGNOSTICS / RADIOLOGY: [ ] ASSESSMENT / PLAN: Mr. Xavi Mendoza, a 44-year-old male with a history of congestive heart failure, COPD, diabetes mellitus type 2, and hypertension, presents with a history of seizures since and recent episodes of coughing and shortness of breath. Provoked seizures Assessment: Patient reports experiencing seizures since , with approximately 8-9 episodes to date. The seizures are characterized by visual disturbances (white spots, blurry vision), loss of consciousness, and witnessed convulsions in some instances. The patient admits to cocaine use, which is likely the primary cause of these seizures. The temporal relationship between cocaine use and seizure episodes strongly suggests these are provoked seizures rather than epilepsy. The patient's complex medical history, including congestive heart failure and recent diagnosis of blood clots, further complicates the clinical picture. Plan: - Educate patient on the relationship between cocaine use and provoked seizures - Advise immediate cessation of cocaine and other illicit substance use - Eviction Specialist on the risks of synthetic marijuana use and its potential to cause seizures - No anti-epileptic medications prescribed due to the provoked nature of the seizures - Follow up as needed if seizures persist after cessation of cocaine use Shortness of breath Assessment: Patient reports significant shortness of breath, limiting his ability to perform basic activities such as walking to the mailbox or climbing stairs. This symptom is likely multifactorial, potentially related to his known congestive heart failure, COPD, or recent diagnosis of blood clots. The patient also experiences weakness and decreased endurance, which may be related to his cardiac condition or overall deconditioning. Plan: - Refer to primary care physician or register clerk for further evaluation and management of shortness of breath - Recommend avoiding activities that exacerbate symptoms - Educate on the importance of medication adherence for heart failure and COPD management Substance use Assessment: Patient admits to ongoing cocaine use, which he attributes to a lack of hope and desire to enjoy life given his limited life expectancy. He also reports using marijuana to stimulate appetite. The patient expresses a willingness to quit cocaine use due to recent health complications, including blood clots. Plan: - Strongly advise immediate cessation of cocaine use - Educate on the risks of continued substance use, particularly in the context of his complex medical history - Recommend substance abuse counseling or rehabilitation programs - Discuss alternative methods for appetite stimulation with primary care physician Thank you for your consultation. I will sign off. YAHIR GALO MD Jan 14, 2025 15:59
--- NOTE | 2025-01-14 16:04 | NUR ---
CHEST PAIN PATIENT CALLED OUT STATING HE IS FEELING SHORT OF BREATH AND C/O STERNAL CHEST PRESSURE 10/10. VITAL SIGNS OBTAINED: HR 112 SINUS TACHYCARDIA, B/P 118/93, 98% ON 2L O2 NC, RESPIRATIONS AT 24. EKG ORDERED. DR. TROTTER CALLED AND NOTIFIED OF PATIENT'S STATUS AND ORDERS RECEIVED FOR NITROSTAT.
[2025-01-14] MEDS: NITROGLYCERIN 0.4 MG SL TAB SL PRN (16:11)
--- NOTE | 2025-01-14 16:50 | NUR ---
CHEST PAIN PATIENT GIVEN NITROSTAT X 3 DOSES AND MS X 1, AND HAD RELIEF AFTER 3RD NITROSTAT AND MORPHINE. EKG RESULTS REPORTED TO DR. TROTTER BY J[facility]EL [facility]. ORDERS FOR SERIAL TROPONIN RECEIVED.
[2025-01-14] MEDS: furoSEMIDE 40MG VIAL IV SCH (18:44)
[2025-01-14] MEDS: BUDESONIDE 0.5 MG/2 ML INH IH SCH (18:50)
--- NOTE | 2025-01-14 19:26 | PN ---
CARDIOLOGY Reason for consult: Cardiomyopathy HPI/story at presentation: This is a pleasant 44-year male with past medical history as per present with complaints of shortness of breath, was diagnosed with CHF exacerbation. He has a known history of cocaine use, Cardiomyopathy ejection fraction 15 to 20% s/p negative cardiac catheterization, 12/2023. No active cardiac complaints of chest discomfort, he does get short of breath with minimal exertion. Has not been able to be compliant with medications at home because of insurance issues. Echo showed LV apical thrombus Subjective: 01/13/2025 sob better Past medical history: See below Allergies, Meds See chart Vitals see chart PHYSICAL EXAMINATION GENERAL: Ao*3 HEENT: Nonicteric sclerae, non traumatic HEART: Regular rate and rhythm with no murmurs LUNGS: Clear to auscultation bilaterally ABDOMEN: No acute issues, non tender GENITAL, RECTAL: deferred SKIN: No rash NEUROLOGIC: NFND EXTREMITIES: MILD BILATERAL EDEMA 06/22/24 ASSESSMENT CARDIOMYOPATHYNONISCHEMIC, In the setting of cocaine use Negative cardiac catheterization, 12/2023 EF of 16%, 12/2023 On spironolactone 25 Jardiance 10 lisinopril 10 Patient is currently not on medications at home because of insurance issues LV APICAL THROMBUS newly diagnosed 12/2024 EXACERBATION OF CHF On IV diuresis, 12/2024 DEVICE IN SITU Previous history of ICD implantation SUBSTANCE USE Previous history of cocaine use, marijuana use No beta-blockers NONSUSTAINED VENTRICULAR TACHYCARDIA On amiodarone HYPERTENSION, TOBACCO USE CORE MEASURES OTHER MEDICAL PROBLEMS Underlying psychiatric illness PLAN 01/13/2025 Patient with known cardiomyopathy, currently having LV apical thrombus. Will start heparin. Continue diuresis, feels better post diuresis seen and examined 01/13/2025 around 8 PM. 01/14/25 Overall doing well, no active cardiac complaints at this time, had episode of chest pain, sharp sensation earlier today in his chest that subsequently resolved with nitroglycerin and morphine. EKG and troponins were ordered and initial troponin was negative. Currently, asymptomatic. Had an episode of hemoptysis earlier and heparin had to be stopped temporarily and then restarted. No further issues hemoptysis after heparin was restarted, continue to trend hemoglobin to assess for potential bleeding issues. If he does well with heparin, can likely transition to Eliquis.seen and examined 01/14/25 at around 1930 ATTESTATION I was involved substantially in the care of this patient Number and complexity of problems addressed: One acute illness with systemic symptoms Amount and or complexity of data Review of prior external note(s) from each unique source: 2+ Ordering of each unique test : 0 Review of the result(s) of each unique test: 2+ Assessment requiring an independent historian(s): No Independent interpretation of test performed by another MD/QHCP/appropriate source (not separately reported) : No Discussion of management or test interpretation with external MD/QHCP/appropriate source (not separately reported) : No Risk status (cardiac, billing related): Moderate Vitals/Labs Vital Signs Date Time Temp Pulse Resp B/P (MAP) Pulse Ox O2 Delivery O2 Flow Rate FiO2 01/14/25 18:50 106 24 N/Cannula Low lpm 2.0 28 01/14/25 16:33 121/92 100 01/14/25 15:30 97.5 Laboratory Tests 01/14/25 06:59 Medications Current Medications Ceftriaxone Sodium 1 gm ONCE ONCE IVPB Last administered on 01/13/25at 10:10; Start 01/13/25 at 10:00; Stop 01/13/25 at 10:01; Status DC Azithromycin 250 ml @ 250 mls/hr Q24H IVPB Last administered on 01/13/25at 10:11; Start 01/13/25 at 10:00; Stop 01/13/25 at 14:02; Status DC Methylprednisolone Sodium Succinate 125 mg ONCE ONCE IVP Last administered on 01/13/25at 10:10; Start 01/13/25 at 10:00; Stop 01/13/25 at 10:01; Status DC Albuterol 2 udvial ONCE ONCE IH Last administered on 01/13/25at 10:13; Start 01/13/25 at 10:00; Stop 01/13/25 at 10:01; Status DC Pantoprazole Sodium 40 mg ONCE ONCE IVP Last administered on 01/13/25at 10:47; Start 01/13/25 at 10:30; Stop 01/13/25 at 10:31; Status DC Enoxaparin Sodium 30 mg DAILY SQ; Start 01/14/25 at 09:00; Stop 01/13/25 at 19:28; Status DC Famotidine 20 mg BID IV Last administered on 01/14/25at 10:12; Start 01/13/25 at 21:00; Stop 02/12/25 at 20:59 Acetaminophen 500 mg Q6H PRN PO Last administered on 01/13/25at 23:43; Start 01/13/25 at 11:00; Stop 02/12/25 at 10:59 Piperacillin Sod/ Tazobactam Sod 3.375 gm Q8H IVPB Last administered on 01/14/25at 11:36; Start 01/13/25 at 11:30; Stop 01/23/25 at 11:29 Sodium Chloride 50 ml AD IV; Start 01/13/25 at 11:30; Stop 01/13/25 at 10:54; Status DC Doxycycline Hyclate 100 mg BID PO Last administered on 01/14/25at 10:12; Start 01/13/25 at 21:00; Stop 01/23/25 at 20:59 Ipratropium [place] 1 mg Q6H PRN IH Last administered on 01/14/25at 06:46; Start 01/13/25 at 11:00; Stop 02/12/25 at 10:59 Potassium Chloride 100 ml @ 100 mls/hr AD PRN IV Last administered on 01/13/25at 17:24; Start 01/13/25 at 11:00; Stop 02/12/25 at 10:59 Potassium Chloride 20 meq AD PRN PO; Start 01/13/25 at 11:00; Stop 02/12/25 at 10:59 Potassium Chloride 20 meq AD PRN PO Last administered on 01/14/25at 10:13; Start 01/13/25 at 11:00; Stop 02/12/25 at 10:59 Magnesium Sulfate 50 ml @ 0 mls/hr PROTOCOL PRN IV Last administered on 01/14/25at 10:14; Start 01/13/25 at 11:00; Stop 02/12/25 at 10:59 Morphine Sulfate 2 mg Q6H PRN IVP Last administered on 01/14/25at 16:46; Start 01/13/25 at 11:00; Stop 01/20/25 at 10:59 Furosemide 20 mg Q8H IV Last administered on 01/14/25at 03:29; Start 01/13/25 at 12:00; Stop 01/14/25 at 13:16; Status DC Lactulose 20 gm BID PRN PO; Start 01/13/25 at 14:00; Stop 02/12/25 at 13:59 Heparin Sodium (Porcine) *calculation based on ACTUAL B... AD PRN IV Last administered on 01/13/25at 21:04; Start 01/13/25 at 20:30; Stop 02/12/25 at 20:29 Heparin Sodium/ Dextrose 250 ml @ 0 mls/hr Q6H IV Last administered on 01/14/25at 15:16; Start 01/13/25 at 20:30; Stop 02/12/25 at 20:29 Diazepam 5 mg Q2HPRN PRN IVP; Start 01/13/25 at 20:00; Stop 01/20/25 at 19:59 Ipratropium [place] 0.5 MG [id number] IH Last administered on 01/14/25at 18:49; Start 01/14/25 at 12:00; Stop 02/13/25 at 11:59 Budesonide 0.5 mg BIDRESP IH Last administered on 01/14/25at 18:50; Start 01/14/25 at 18:00; Stop 02/13/25 at 17:59 Iohexol 75 ml STK-MED ONCE IV; Start 01/14/25 at 09:37; Stop 01/14/25 at 09:37; Status DC Furosemide 60 mg ONCE ONCE IV Last administered on 01/14/25at 12:09; Start 01/14/25 at 12:00; Stop 01/14/25 at 12:01; Status DC Furosemide 40 mg BID IV Last administered on 01/14/25at 18:44; Start 01/14/25 at 18:00; Stop 02/13/25 at 17:59 Carvedilol 3.125 mg BID PO; Start 01/14/25 at 21:00; Stop 02/13/25 at 20:59 Nitroglycerin 0.4 mg AD PRN SL Last administered on 01/14/25at 16:29; Start 01/14/25 at 16:30; Stop 02/13/25 at 16:29 ORTIZ RAPP MD Jan 14, 2025 19:26
[2025-01-14] MEDS ORDERED: ATOR20TA65 PO (20:26)
[2025-01-14] MEDS ORDERED: CARV12.511 PO (20:26)
[2025-01-14] MEDS ORDERED: DOCU100T PO (20:26)
[2025-01-14] MEDS ORDERED: LISI10TA24 PO (20:26)
[2025-01-14] MEDS: carVEDIlol 3.125 MG TABLET PO SCH (21:14)
[2025-01-15] VITALS (15 sets, daily range): BP systolic 101–131; BP diastolic 66–95; PULSE 78–110; RESP 17–22; TEMP 97.6–99; O2SAT 96–100
[2025-01-15 04:27] LABS: BASOPHILS # (AUTO) 0.02 K/uL (0.00-0.20); BASOPHILS % (AUTO) 0.1 % (0.0-5.0); HEMATOCRIT 44.3 % (42-54); IMMATURE GRANULOCYTE ABSOLUTE 0.06 K/uL (0-1); LYMPHOCYTES # (AUTO) 1.2 K/uL (1.0-4.8); MEAN CORPUSCULAR HEMOGLOBIN 30.8 pg (27.0-33.0); MEAN CORPUSCULAR HGB CONC 33.2 g/dL (32.0-36.0); MEAN CORPUSCULAR VOLUME 92.9 fL (79-99); MONOCYTES # (AUTO) 1.2 K/uL (0.1-1.0); MONOCYTES % (AUTO) 9.2 % (3.0-13.0); NEUTROPHILS # (AUTO) 10.9 K/uL (1.8-7.7); NEUTROPHILS % (AUTO) 81.3 % (40.0-77.0); PLATELET COUNT (AUTO) 225 K/uL (130-400); RED BLOOD CELL COUNT(AUTO) 4.77 MIL/uL (4.50-6.20); RED CELL DISTRIBUTION WIDTH 20.9 % (11.0-15.5); WHITE BLOOD COUNT (AUTO) 13.4 K/uL (4.8-10.8)
[2025-01-15 04:43] LABS: CREATININE 1.3 mg/dL (0.5-1.3); POTASSIUM 3.7 mmol/L (3.5-5.1)
--- NOTE | 2025-01-15 06:17 | NUR ---
PAGED DR. RAPP FOR 8 SECOND RUN OF A.FIB WITH WIDE QRS COMPLEX THAT TRANSITIONED BACK INTO SINUS TACHYCARDIA 110S. PENDING CALL BACK
--- NOTE | 2025-01-15 06:30 | EKG ---
[facility] Test Date: 2025-01-14 Test Time: 16:07:26 Pat Name: GOLDIE CUNNINGHAM Department: [facility] Room: 224 1 Gender: M Non Destructive Tester: [id number] : 1980 Requested By: ORTIZ RAPP Order Number: [id number] Reading MD: Bennie Kimble Measurements Intervals [place] Rate: 111 P: 70 NV: 143 QRS: 62 QRSD: 112 T: 268 QT: 374 QTc: 509 Interpretive Statements Sinus tachycardia Biatrial enlargement Left ventricular hypertrophy Anterior infarct, old Nonspecific T abnormalities, lateral leads Prolonged QT interval Compared to ECG 01/13/2025 09:45:35 T-wave abnormality now present Ventricular premature complex(es) no longer present Early repolarization no longer present Myocardial infarct finding still present Electronically Signed On 01-16-2025 10:13:06 CDT by Bennie Kimble Please click the below link to view image of tracing.
--- NOTE | 2025-01-15 06:55 | NUR ---
DR. TROTTER RETURNED PAGE, MADE AWARE, NO NEW ORDERS AT THIS TIME.
[2025-01-15] MEDS: LACTULOSE 20 GM/30 ML UDCUP PO PRN (09:17)
--- NOTE | 2025-01-15 12:15 | HMCIMG ---
CHEST 2VWS HISTORY: Shortness of breath COMPARISON: None FINDINGS: Frontal and lateral projections of the chest were obtained. There are bilateral pulmonary infiltrates suggestive of pulmonary vascular congestion with possible superimposed pneumonitis. The heart is enlarged. No evidence of aortic calcification is seen. Pacemaker is seen entering from the left. Degenerative changes are seen of the thoracolumbar spine. IMPRESSION: 1. Bilateral pulmonary infiltrates suggestive of pulmonary vascular congestion with possible superimposed pneumonitis.
[2025-01-15] MEDS: ALPRAZolam 0.25 MG TABLET PO ONE (13:04)
--- NOTE | 2025-01-15 14:22 | PN ---
[facility] PROGRESS NOTE Date of Service: Jan 15, 2025 Time of Service: 14:11 SUBJECTIVE: 44 year old male with past medical history of CHF with history of AICD/pacemaker placement, history of COPD, diabetes mellitus type, hypertension who presented to the hospital secondary to cough, shortness of breath. Patient states for the past two weeks he has been having productive cough with sputum production he has noted fever, chills at home. He has also noted shortness of breath which is present at rest and with exertion. He states he has been compliant with his medications including Lasix. He denies any lower extremity swelling. He also complains of numbness in the right foot. He states he has a history of seizure and had one episode of seizure around two weeks ago. He is not taking any seizure medications. He started states he lost consciousness but is unable to state if he had any jerking movements. He has not seen a neurologist recently. Denied any falls, syncopal episode. He uses a cane for ambulation denied any sick contacts at home. Due to insurance issues he has not been able to follow up with aquatic scientist. He sees Dr. Serra as outpatient. One month ago he was hospitalized in [place] where he states he needed fluid to be drained from his abdomen. Labs showed white count of 9.2, hemoglobin is 15.3, platelet count was 223k, sodium was 139, potassium was 3.4, creatinine was 1.2, chloride was 106, troponin 9 elevated at 97 01/14/2025 - patient is seen at bedside in room 224, patient is alert, awake, oriented to time place person. He informed that he started having hemoptysis. Patient is currently started on heparin due to apical thrombus found on echocardiogram . Patient is currently tachycardic at heart rate 107, respiratory rate 20, blood pressure 147/95 , saturating at 99% on 2 L nasal cannula. ABG and lactic acid will be repeated. there Is no pedal edema. We will increase the Lasix dose to 40 mg b.i.d.. Awaiting consults recommendations. We will monitor the patient closely . 01/15/2025 - patient seen at bedside in room 224 , patient feeling very anxious about his condition and informs that he is coughing blood. He showed what he coughed out, but it is more of purulent sputum. Patient appeared very anxious and we plan to order Xanax and monitor him. Patient is currently hemodynamically stable, patient complained of continuous chest pain since yesterday and troponin trended to be in normal. will Follow cardiology recommendations, patient needs heart transplant definitively . Patient has been informed that substance abuse will cause more complications . Lactic acid has been downtrending and repeat ABG from yesterday showed pH of 7.4 And pCO2 32 improved compared to admission. Chest x-ray shows persistent lung infiltrates . patient will be monitored closely REVIEW OF SYSTEMS CONSTITUTIONAL: Denies fevers, chills, or night sweats. No unintentional weight loss reported. NEUROLOGICAL: Denies headache, amaurosis fugax, motor weakness, sensory deficit, vertigo/spinning sensation, gait abnormalities, or tremors. ENT: No hearing loss, otalgia, otorrhea, rhinitis, rhinorrhea, hoarseness, or sore throat. CARDIOVASCULAR: Denies any exertional angina, dyspnea on exertion, orthopnea, paroxysmal nocturnal dyspnea, palpitations, life-threatening arrhythmias, claudication. PULMONARY: Cough, shortness of breath, sputum production GASTROINTESTINAL: Positive for abdominal pain. Denied any nausea, vomiting, diarrhea. Positive for constipation GENITOURINARY: Denies frequency, urgency, nocturia, hematuria or incontinence (Storage/Irritative symptoms.) Low urinary stream, straining to void, urinary intermittency or hesitancy, splitting of the voiding stream, terminal dribbling. ENDOCRINOLOGIC: Denies polyuria, polydipsia, polyphagia or heat/cold intolerances. HEMATOLOGIC: Denies thrombophilia/previous clots, or coagulopathy/bleeding disorders. ONCOLOGIC: Denies personal history of malignancy. DERMATOLOGIC: Denies rashes or pruritus. PSYCHIATRIC: Denies any suicidal or homicidal ideation. Denies hallucinations. PHYSICAL EXAM GENERAL APPEARANCE: The patient is awake, alert, and oriented, in no acute cardiopulmonary distress. NEUROLOGICAL: Cranial nerves II-XII grossly intact. Motor is 5/5 in bilateral upper and lower extremities proximal to distal. No sensory deficits. HEENT: Face is symmetric. Pupils are equal and reactive. Extraocular movements are intact. NECK: Supple. No JVD. No thyromegaly. No submental, submandibular, pre-/postauricular, occipital or supraclavicular lymphadenopathy. CHEST: Normal chest expansion. No Telemetry. LUNGS: Absence of any rales, rhonchi or any wheezing. CARDIOVASCULAR: Regular. S1 and S2 normal. No appreciable rubs, murmurs or gallops. ABDOMEN: Soft, mild generalized tenderness on palpation no rebound, no guarding present. : Deferred. No [place]. EXTREMITIES: Non-edematous and not cyanotic. No clubbing. Good capillary refill. SKIN: No skin breakdown. Vital Signs (last 8hr) Date Time Temp Pulse Resp B/P (MAP) Pulse Ox O2 Delivery O2 Flow Rate FiO2 01/15/25 11:18 98 22 01/15/25 11:00 98.2 96 19 123/77 99 Nasal Cannula 2.0 01/15/25 09:03 128/91 01/15/25 09:00 96 Nasal Cannula* 2 28 01/15/25 07:00 97.9 103 19 128/91 99 Nasal Cannula 2.0 01/15/25 06:29 102 20 N/Cannula Low lpm 2.0 28 01/15/25 06:26 102 22 LABS: Laboratory: Test 01/15/25 11:06 01/15/25 08:39 01/15/25 04:09 01/14/25 14:44 Range/Units Lactic Acid Level 1.7 0.8-2.5 mmol/L Activated Partial Thromboplast Time 49.2 H 26.3-35.5 SEC White Blood Count 13.4 H 4.8-10.8 K/uL Red Blood Count 4.77 4.50-6.20 MIL/uL Hemoglobin 14.7 14.0-18.0 g/dL Hematocrit 44.3 42-54 % Mean Corpuscular Volume 92.9 79-99 fL Mean Corpuscular Hemoglobin 30.8 27.0-33.0 pg Mean Corpuscular Hemoglobin Concent 33.2 32.0-36.0 g/dL Red Cell Distribution Width 20.9 H 11.0-15.5 % Platelet Count 225 130-400 K/uL Mean Platelet Volume 12.8 H 7.5-10.5 fL Immature Granulocyte % (Auto) 0.4 0-1 % Neutrophils (%) (Auto) 81.3 H 40.0-77.0 % Lymphocytes (%) (Auto) 9.0 L 21.0-51.0 % Monocytes (%) (Auto) 9.2 3.0-13.0 % Eosinophils (%) (Auto) 0.0 0.0-8.0 % Basophils (%) (Auto) 0.1 0.0-5.0 % Neutrophils # (Auto) 10.9 H 1.8-7.7 K/uL Lymphocytes # (Auto) 1.2 1.0-4.8 K/uL Monocytes # (Auto) 1.2 H 0.1-1.0 K/uL Eosinophils # (Auto) 0.00 0.00-0.70 K/uL Basophils # (Auto) 0.02 0.00-0.20 K/uL Absolute Immature Granulocyte (auto 0.06 0-1 K/uL Nucleated Red Blood Cells 0.0 0.0-0.19 % Sodium Level 136 136-145 mmol/L Potassium Level 3.7 3.5-5.1 mmol/L Chloride Level 100 L 101-111 mmol/L Carbon Dioxide Level 22 21-32 mmol/L Blood Urea Nitrogen 31 H 7-18 mg/dL Creatinine 1.3 0.5-1.3 mg/dL Glomerular Filtration Rate Calc 69 >90 mL/min Random Glucose 145 H 70-105 mg/dL Total Calcium 8.6 8.5-10.1 mg/dL Troponin I High Sensitivity 74 4-75 ng/L Blood Gas Specimen Type Arterial Arterial Blood pH 7.448 7.350-7.450 Arterial Blood Partial Pressure CO2 34 L 35-48 mmHg Arterial Blood Partial Pressure O2 97.1 83.0-108.0 mmHg Arterial Blood HCO3 22.8 21.0-28.0 mmol/L Arterial Blood Oxygen Saturation 97.7 94.0-98.0 % Arterial Blood Base Excess -0.5 -2.0-3.0 mmol/L Blood Gas Temperature 37.0 35.5-37.0 CELSIUS Blood Gas Flow-by 2.00 0.00-15.00 L/min Blood Gas Vent Mode NC ROOM AIR FiO2 28.0 % Blood Gas Specimen Comment LR JONATHAN HANSEN Test 01/14/25 06:59 01/13/25 20:08 01/13/25 17:03 Range/Units White Cell Morphology Comment See comments Magnesium Level 1.80 1.80-2.40 mg/dL Prothrombin Time 14.5 H 9.6-11.6 SEC Prothromb Time International Ratio 1.42 H 0.85-1.15 Urine Color YELLOW YELLOW Urine Appearance CLEAR CLEAR Urine pH 5.5 5.0-8.0 Urine Specific [place] 1.015 1.001-1.031 Urine Protein 100 H NEGATIVE mg/dL Urine Glucose (UA) NEGATIVE NEGATIVE mg/dL Urine Ketones NEGATIVE NEGATIVE mg/dL Urine Occult Blood NEGATIVE NEGATIVE Urine Nitrate NEGATIVE NEGATIVE Urine Bilirubin NEGATIVE NEGATIVE mg/dL Urine Urobilinogen 0.2 0.2-1.0 mg/dL Urine Leukocyte Esterase NEGATIVE NEGATIVE Ty/uL Urine RBC 2-5 H 0-1 /HPF Urine WBC 2-5 H 0-1 /HPF Urine Squamous Epithelial Cells RARE 0-2 /HPF Urine Bacteria None None Seen /HPF Urine Hyaline Casts 6-10 H 0-1 /LPF /LPF Urine Opiates Screen NEGATIVE NEGATIVE Urine Barbiturates Screen NEGATIVE NEGATIVE Urine Phencyclidine Screen NEGATIVE NEGATIVE Urine Amphetamines Screen NEGATIVE NEGATIVE Urine Benzodiazepines Screen NEGATIVE NEGATIVE Urine Cocaine Screen POSITIVE H NEGATIVE Urine Marijuana (THC) Screen POSITIVE H NEGATIVE Current Medications Medications (Trade) Dose Ordered Sig/Sarah Route PRN Reason Start Time Stop Time Status Last Admin Dose Admin Acetaminophen (TYLenol 500MG TAB) 500 mg Q6H PRN PO MILD PAIN (1-3) 01/13/25 11:00 02/12/25 10:59 01/13/25 23:43 500 MG Azithromycin 250 ml @ 250 mls/hr Q24H IVPB 01/13/25 10:00 01/13/25 14:02 DC 01/13/25 10:11 250 MLS/HR Budesonide (Pulmicort 0.5 Mg/2ml) 0.5 mg BIDRESP IH 01/14/25 18:00 02/13/25 17:59 01/15/25 06:25 0.5 MG Carvedilol (Coreg 3.125MG) 3.125 mg BID PO 01/14/25 21:00 02/13/25 20:59 01/15/25 09:03 3.125 MG Diazepam (VALium 5 MG/ML 2 ML SYG) 5 mg Q2HPRN PRN IVP SEIZURE LASTING MORE THAN 5 MINUTES 01/13/25 20:00 01/20/25 19:59 Doxycycline Hyclate (Doxycycline Hyclate) 100 mg BID PO 01/13/25 21:00 01/23/25 20:59 01/15/25 09:03 100 MG Enoxaparin Sodium (Lovenox) 30 mg DAILY SQ 01/14/25 09:00 01/13/25 19:28 DC Famotidine (Pepcid 20mg Vial) 20 mg BID IV 01/13/25 21:00 02/12/25 20:59 01/15/25 09:02 20 MG Furosemide (LASix 20MG VIAL) 20 mg Q8H IV 01/13/25 12:00 01/14/25 13:16 DC 01/14/25 03:29 20 MG Furosemide (LASix 40MG VIAL) 40 mg BID IV 01/14/25 18:00 02/13/25 17:59 01/15/25 09:02 40 MG Heparin Sodium (Porcine) (HEParin 5,000 UNIT VIAL) *calculation based on ACTUAL B... AD PRN IV HEPARIN PROTOCOL 01/13/25 20:30 02/12/25 20:29 01/13/25 21:04 5,000 UNIT Heparin Sodium/ Dextrose 250 ml @ 0 mls/hr Q6H IV 01/13/25 20:30 02/12/25 20:29 01/14/25 21:20 13.43 MLS/HR Ipratropium [place] (AtrovENT UD) 0.5 MG [id number] IH 01/14/25 12:00 02/13/25 11:59 01/15/25 11:18 0.5 MG Ipratropium [place] (AtrovENT UD) 1 mg Q6H PRN IH SHORTNESS OF BREATH 01/13/25 11:00 02/12/25 10:59 01/14/25 06:46 0.5 MG Lactulose (Constulose 20gm/ 30ml Udcup) 20 gm BID PRN PO CONSTIPATION 01/13/25 14:00 02/12/25 13:59 01/15/25 09:17 20 GM Magnesium Sulfate 50 ml @ 0 mls/hr PROTOCOL PRN IV hypomagnesemia 01/13/25 11:00 02/12/25 10:59 01/14/25 10:14 25 MLS/HR Morphine Sulfate (morPHINE 2MG SYG) 2 mg Q6H PRN IVP SEVERE PAIN (7-10) 01/13/25 11:00 01/20/25 10:59 01/15/25 09:02 2 MG Nitroglycerin (Nitrostat) 0.4 mg AD PRN SL CHEST PAIN 01/14/25 16:30 02/13/25 16:29 01/14/25 16:29 0.4 MG Piperacillin Sod/ Tazobactam Sod (Zosyn 3.375gm+NS 50ml) 3.375 gm Q8H IVPB 01/13/25 11:30 01/23/25 11:29 01/15/25 13:04 3.375 GM Potassium Chloride 100 ml @ 100 mls/hr AD PRN IV POTASSIUM PROTOCOL 01/13/25 11:00 02/12/25 10:59 01/13/25 17:24 100 MLS/HR Potassium Chloride (K-Dur/Klor-Con 20meq) 20 meq AD PRN PO POTASSIUM PROTOCOL 01/13/25 11:00 02/12/25 10:59 01/15/25 09:03 20 MEQ Potassium Chloride (KCl 10% Elixir 20meq/15ml) 20 meq AD PRN PO POTASSIUM PROTOCOL 01/13/25 11:00 02/12/25 10:59 Sodium Chloride (NS 50ml) 50 ml AD IV 01/13/25 11:30 01/13/25 10:54 DC DIAGNOSTICS / RADIOLOGY: PATIENT: GOLDIE CUNNINGHAM MR#: [id number] : 1980 SEX: M AGE: 44 LOCATION: 2DH ORDER 0912 STATUS: ADM IN REPORT#: [id number] SERVICE 0911 REASON: sob ORDERING PHYSICIAN: MIGUEL A OLIVAREZ MD PROCEDURE: CXR2VW - CHEST 2VWS CHEST 2VWS HISTORY: Shortness of breath COMPARISON: None FINDINGS: Frontal and lateral projections of the chest were obtained. There are bilateral pulmonary infiltrates suggestive of pulmonary vascular congestion with possible superimposed pneumonitis. The heart is enlarged. No evidence of aortic calcification is seen. Pacemaker is seen entering from the left. Degenerative changes are seen of the thoracolumbar spine. IMPRESSION: 1. Bilateral pulmonary infiltrates suggestive of pulmonary vascular congestion with possible superimposed pneumonitis. DICTATED BY: HERBER RAYMOND MD DATE: 01/15/25 1211 ELECTRONICALLY SIGNED BY: HERBER RAYMOND MD DATE: 01/15/25 1215 ASSESSMENT: Community acquired pneumonia POA Acute hypoxic respiratory failure secondary to community-acquired pneumonia Suspected acute on chronic CHF exacerbation with systolic and diastolic dysfunction with EF of 30-35% Troponin elevation likely in setting of type 2 MT Medical noncompliance History of cocaine use Hypertension Diabetes mellitus type 2 COPD Abdominal Pain Right foot pain and paresthesias History of Seizures not on medications Acute anxiety Sepsis PLAN: - patient to be admitted to P[facility]U -in reference to community-acquired pneumonia patient will be started on Zosyn and doxycycline. Obtain a sputum culture, sample we will request a pulmonary consultation -in reference to CHF exacerbation. We will trend troponins q.6 hours to rule out ACS. We will request consultation with Cardiology. Obtain echocardiogram -obtain home medications which will be reconciled once available -check TSH, A1c, procaine, CRP -obtain a foot x-ray -obtain a CT head. Obtain a CT abdomen for further evaluation of abdominal pain. - we will request consultation with Neurology due to history of seizures. Follow up with the ABG and lactic acid Chest PE protocol turned out to be negative Echocardiogram reveals apical thrombus Lasix increased to 40 mg IV b.i.d. Carvedilol 3.125 b.i.d. to be added to the treatment Continue heparin according to the consults recommendations Continue to monitor the patient Patient needs heart transplant, we will follow up with aquatic scientist Patient to be evaluated home oxygen requirement prior to discharge ATTESTATION BY PHYSICIAN I have seen and examined the patient. I reviewed the documentation, medical decision making, and treatment plan as noted by the resident provider above. I agree with the findings and plan of care. Matt Snell MD, KEERTI K MD Jan 15, 2025 14:22
--- NOTE | 2025-01-15 20:05 | PN ---
[facility] PROGRESS NOTE Date Patient Seen: Jan 15, 2025 Time of Visit: 20:03 Supervising Physician: Dr. Wynn PROBLEM LIST: Acute hypoxemic respiratory failure Community acquired pneumonia Large apical thrombus Acute combined CHF, LVEF 30-35% Troponin elevation AICD status Diabetes mellitus type Hypertension COPD without exacerbation Seizures Polysubstance abuse (+) THC, cocaine Medical noncompliance INTERVAL HISTORY: 01/15/2025: At the time of my evaluation, the patient was sitting up to the bedside chair. The staff nurse reports no acute events overnight. Patient's main complaint is pain. He remains on a nasal cannula 2 L and vital signs are unremarkable. Laboratory data showed a elevated WBC today 13.4. H and H and platelet count are unremarkable. Chemistry panel was unremarkable. Chest imaging obtained showed mild pulmonary vascular congestion and infiltrates. Currently, the patient remains on diuresis with Lasix 40 b.i.d. and is on antibiotic coverage with Zosyn on doxy combination. No other complaint. REVIEW OF SYSTEMS: 12 point ROS reviewed with patient. Pertinent positives mentioned above. Otherwise negative. PHYSICAL EXAM: GENERAL: alert, weak, awake oriented x 3 HEENT: EOMI, Sclera non icteric, moist mucosa NECK: Supple, no JVD, trachea midline LUNGS: Clear breath sounds bilaterally. No wheezes HEART: Regular rate and rhythm. Normal S1 and S2, without murmurs ABD: Abdomen soft, nontender. Bowel sounds present EXT: No clubbing cyanosis or edema NEURO: Alert and oriented to person, follows commands Vital Signs (last 8hr) Date Time Temp Pulse Resp B/P (MAP) Pulse Ox O2 Delivery O2 Flow Rate FiO2 01/15/25 19:22 97.9 100 18 131/66 98 Nonrebreathing Mask 15.0 01/15/25 19:13 97.9 78 18 103/75 100 Nasal Cannula 2.0 01/15/25 19:07 110 18 N/Cannula Low lpm 2.0 28 01/15/25 18:14 96 20 01/15/25 15:30 97.9 100 21 101/74 99 Nasal Cannula 2.0 LABS: Hematology Labs: Test 01/15/25 04:09 01/14/25 06:59 Range/Units White Blood Count 13.4 H 4.8-10.8 K/uL Red Blood Count 4.77 4.50-6.20 MIL/uL Hemoglobin 14.7 14.0-18.0 g/dL Hematocrit 44.3 42-54 % Mean Corpuscular Volume 92.9 79-99 fL Mean Corpuscular Hemoglobin 30.8 27.0-33.0 pg Mean Corpuscular Hemoglobin Concent 33.2 32.0-36.0 g/dL Red Cell Distribution Width 20.9 H 11.0-15.5 % Platelet Count 225 130-400 K/uL Mean Platelet Volume 12.8 H 7.5-10.5 fL Immature Granulocyte % (Auto) 0.4 0-1 % Neutrophils (%) (Auto) 81.3 H 40.0-77.0 % Lymphocytes (%) (Auto) 9.0 L 21.0-51.0 % Monocytes (%) (Auto) 9.2 3.0-13.0 % Eosinophils (%) (Auto) 0.0 0.0-8.0 % Basophils (%) (Auto) 0.1 0.0-5.0 % Neutrophils # (Auto) 10.9 H 1.8-7.7 K/uL Lymphocytes # (Auto) 1.2 1.0-4.8 K/uL Monocytes # (Auto) 1.2 H 0.1-1.0 K/uL Eosinophils # (Auto) 0.00 0.00-0.70 K/uL Basophils # (Auto) 0.02 0.00-0.20 K/uL Absolute Immature Granulocyte (auto 0.06 0-1 K/uL Nucleated Red Blood Cells 0.0 0.0-0.19 % White Cell Morphology Comment See comments Chemistry Labs: Test 01/15/25 11:06 01/15/25 04:09 01/14/25 06:59 Range/Units Lactic Acid Level 1.7 0.8-2.5 mmol/L Sodium Level 136 136-145 mmol/L Potassium Level 3.7 3.5-5.1 mmol/L Chloride Level 100 L 101-111 mmol/L Carbon Dioxide Level 22 21-32 mmol/L Blood Urea Nitrogen 31 H 7-18 mg/dL Creatinine 1.3 0.5-1.3 mg/dL Glomerular Filtration Rate Calc 69 >90 mL/min Random Glucose 145 H 70-105 mg/dL Total Calcium 8.6 8.5-10.1 mg/dL Troponin I High Sensitivity 74 4-75 ng/L Magnesium Level 1.80 1.80-2.40 mg/dL Coagulation Labs: Test 01/15/25 08:39 01/13/25 20:08 Range/Units Activated Partial Thromboplast Time 49.2 H 26.3-35.5 SEC Prothrombin Time 14.5 H 9.6-11.6 SEC Prothromb Time International Ratio 1.42 H 0.85-1.15 DIAGNOSTICS / RADIOLOGY RESULTS: [ ] Plan: 01/15/2025: For now, going to continue current management for the patient. Continue oxygen supplementation, continue antibiotic coverage on diuretic therapy. We will follow the recommendation of the natural resources extension educator's whose plan is to manage conservatively. We will repeat surveillance labs in the morning. I discussed the findings and plan for further management with the patient. We will monitor the patient's progress and response to management. We will continue to provide general supportive care, GI and DVT prophylaxis. Further orders per attending MD and hospital course. Disposition: Per primary team Other: Patient was seen and case discussed with kathryn HUTSON. Plan of care was discussed and agreed upon. SHIRA BELL NP Jan 15, 2025 20:05
--- NOTE | 2025-01-15 21:53 | PN ---
CARDIOLOGY Reason for consult: Cardiomyopathy HPI/story at presentation: This is a pleasant 44-year male with past medical history as per present with complaints of shortness of breath, was diagnosed with CHF exacerbation. He has a known history of cocaine use, Cardiomyopathy ejection fraction 15 to 20% s/p negative cardiac catheterization, 12/2023. No active cardiac complaints of chest discomfort, he does get short of breath with minimal exertion. Has not been able to be compliant with medications at home because of insurance issues. Echo showed LV apical thrombus Subjective: 01/13/2025 sob better Past medical history: See below Allergies, Meds See chart Vitals see chart PHYSICAL EXAMINATION GENERAL: Ao*3 HEENT: Nonicteric sclerae, non traumatic HEART: Regular rate and rhythm with no murmurs LUNGS: Clear to auscultation bilaterally ABDOMEN: No acute issues, non tender GENITAL, RECTAL: deferred SKIN: No rash NEUROLOGIC: NFND EXTREMITIES: MILD BILATERAL EDEMA 06/22/24 ASSESSMENT CARDIOMYOPATHYNONISCHEMIC, In the setting of cocaine use Negative cardiac catheterization, 12/2023 EF of 16%, 12/2023 On spironolactone 25 Jardiance 10 lisinopril 10 Patient is currently not on medications at home because of insurance issues LV APICAL THROMBUS newly diagnosed 12/2024 EXACERBATION OF CHF On IV diuresis, 12/2024 DEVICE IN SITU Previous history of ICD implantation SUBSTANCE USE Previous history of cocaine use, marijuana use No beta-blockers NONSUSTAINED VENTRICULAR TACHYCARDIA On amiodarone HYPERTENSION, TOBACCO USE CORE MEASURES OTHER MEDICAL PROBLEMS Underlying psychiatric illness PLAN 01/13/2025 Patient with known cardiomyopathy, currently having LV apical thrombus. Will start heparin. Continue diuresis, feels better post diuresis seen and examined 01/13/2025 around 8 PM. 01/14/25 Overall doing well, no active cardiac complaints at this time, had episode of chest pain, sharp sensation earlier today in his chest that subsequently resolved with nitroglycerin and morphine. EKG and troponins were ordered and initial troponin was negative. Currently, asymptomatic. Had an episode of hemoptysis earlier and heparin had to be stopped temporarily and then restarted. No further issues hemoptysis after heparin was restarted, continue to trend hemoglobin to assess for potential bleeding issues. If he does well with heparin, can likely transition to Eliquis.seen and examined 01/14/25 at around 1930 01/15/2025 Afib with BBB today,short run, already on oac, will need to consider amio. volume status is stable. seen and examned 01/15/2025 at around 2000 ATTESTATION I was involved substantially in the care of this patient Number and complexity of problems addressed: One acute illness with systemic symptoms Amount and or complexity of data Review of prior external note(s) from each unique source: 2+ Ordering of each unique test : 0 Review of the result(s) of each unique test: 2+ Assessment requiring an independent historian(s): No Independent interpretation of test performed by another MD/QHCP/appropriate source (not separately reported) : No Discussion of management or test interpretation with external MD/QHCP/appropriate source (not separately reported) : No Risk status (cardiac, billing related): Moderate Vitals/Labs Vital Signs Date Time Temp Pulse Resp B/P (MAP) Pulse Ox O2 Delivery O2 Flow Rate FiO2 01/15/25 19:22 97.9 100 18 131/66 98 Nonrebreathing Mask 15.0 01/15/25 19:07 28 Laboratory Tests 01/15/25 04:09 Medications Current Medications Ceftriaxone Sodium 1 gm ONCE ONCE IVPB Last administered on 01/13/25at 10:10; Start 01/13/25 at 10:00; Stop 01/13/25 at 10:01; Status DC Azithromycin 250 ml @ 250 mls/hr Q24H IVPB Last administered on 01/13/25at 10:11; Start 01/13/25 at 10:00; Stop 01/13/25 at 14:02; Status DC Methylprednisolone Sodium Succinate 125 mg ONCE ONCE IVP Last administered on 01/13/25at 10:10; Start 01/13/25 at 10:00; Stop 01/13/25 at 10:01; Status DC Albuterol 2 udvial ONCE ONCE IH Last administered on 01/13/25at 10:13; Start 01/13/25 at 10:00; Stop 01/13/25 at 10:01; Status DC Pantoprazole Sodium 40 mg ONCE ONCE IVP Last administered on 01/13/25at 10:47; Start 01/13/25 at 10:30; Stop 01/13/25 at 10:31; Status DC Enoxaparin Sodium 30 mg DAILY SQ; Start 01/14/25 at 09:00; Stop 01/13/25 at 19:28; Status DC Famotidine 20 mg BID IV Last administered on 01/15/25at 09:02; Start 01/13/25 at 21:00; Stop 02/12/25 at 20:59 Acetaminophen 500 mg Q6H PRN PO Last administered on 01/15/25at 14:47; Start 01/13/25 at 11:00; Stop 02/12/25 at 10:59 Piperacillin Sod/ Tazobactam Sod 3.375 gm Q8H IVPB Last administered on 01/15/25at 18:58; Start 01/13/25 at 11:30; Stop 01/23/25 at 11:29 Sodium Chloride 50 ml AD IV; Start 01/13/25 at 11:30; Stop 01/13/25 at 10:54; Status DC Doxycycline Hyclate 100 mg BID PO Last administered on 01/15/25at 09:03; Start 01/13/25 at 21:00; Stop 01/23/25 at 20:59 Ipratropium Rarden 1 mg Q6H PRN IH Last administered on 01/14/25at 06:46; Start 01/13/25 at 11:00; Stop 02/12/25 at 10:59 Potassium Chloride 100 ml @ 100 mls/hr AD PRN IV Last administered on 01/13/25at 17:24; Start 01/13/25 at 11:00; Stop 02/12/25 at 10:59 Potassium Chloride 20 meq AD PRN PO; Start 01/13/25 at 11:00; Stop 02/12/25 at 10:59 Potassium Chloride 20 meq AD PRN PO Last administered on 01/15/25at 09:03; Start 01/13/25 at 11:00; Stop 02/12/25 at 10:59 Magnesium Sulfate 50 ml @ 0 mls/hr PROTOCOL PRN IV Last administered on 01/14/25at 10:14; Start 01/13/25 at 11:00; Stop 02/12/25 at 10:59 Morphine Sulfate 2 mg Q6H PRN IVP Last administered on 01/15/25at 09:02; Start 01/13/25 at 11:00; Stop 01/20/25 at 10:59 Furosemide 20 mg Q8H IV Last administered on 01/14/25at 03:29; Start 01/13/25 at 12:00; Stop 01/14/25 at 13:16; Status DC Lactulose 20 gm BID PRN PO Last administered on 01/15/25at 09:17; Start 01/13/25 at 14:00; Stop 02/12/25 at 13:59 Heparin Sodium (Porcine) *calculation based on ACTUAL B... AD PRN IV Last administered on 01/13/25at 21:04; Start 01/13/25 at 20:30; Stop 02/12/25 at 20:29 Heparin Sodium/ Dextrose 250 ml @ 0 mls/hr Q6H IV Last administered on 01/15/25at 17:11; Start 01/13/25 at 20:30; Stop 02/12/25 at 20:29 Diazepam 5 mg Q2HPRN PRN IVP; Start 01/13/25 at 20:00; Stop 01/20/25 at 19:59 Ipratropium Rarden 0.5 MG [id number] IH Last administered on 01/15/25at 18:14; Start 01/14/25 at 12:00; Stop 02/13/25 at 11:59 Budesonide 0.5 mg BIDRESP IH Last administered on 01/15/25at 18:13; Start 01/14/25 at 18:00; Stop 02/13/25 at 17:59 Iohexol 75 ml STK-MED ONCE IV; Start 01/14/25 at 09:37; Stop 01/14/25 at 09:37; Status DC Furosemide 60 mg ONCE ONCE IV Last administered on 01/14/25at 12:09; Start 01/14/25 at 12:00; Stop 01/14/25 at 12:01; Status DC Furosemide 40 mg BID IV Last administered on 01/15/25at 09:02; Start 01/14/25 at 18:00; Stop 02/13/25 at 17:59 Carvedilol 3.125 mg BID PO Last administered on 01/15/25at 09:03; Start 01/14/25 at 21:00; Stop 02/13/25 at 20:59 Nitroglycerin 0.4 mg AD PRN SL Last administered on 01/14/25at 16:29; Start 01/14/25 at 16:30; Stop 02/13/25 at 16:29 Alprazolam 0.25 mg ONCE ONCE PO Last administered on 01/15/25at 13:04; Start 01/15/25 at 12:30; Stop 01/15/25 at 12:31; Status DC ORTIZ RAPP MD Jan 15, 2025 21:53
[2025-01-16 03:21] VITALS: BP 109/75; PULSE 80; RESP 18; TEMP 97.7
[2025-01-16] MEDS: ALPRAZolam 0.5 MG TABLET PO ONE (03:58)
[2025-01-16 04:39] LABS: BASOPHILS # (AUTO) 0.03 K/uL (0.00-0.20); BASOPHILS % (AUTO) 0.3 % (0.0-5.0); EOSINOPHILS # (AUTO) 0.03 K/uL (0.00-0.70); EOSINOPHILS % (AUTO) 0.3 % (0.0-8.0); HEMATOCRIT 44.5 % (42-54); IMMATURE GRANULOCYTE ABSOLUTE 0.07 K/uL (0-1); LYMPHOCYTES # (AUTO) 1.2 K/uL (1.0-4.8); LYMPHOCYTES % (AUTO) 11.6 % (21.0-51.0); MEAN CORPUSCULAR HEMOGLOBIN 30.3 pg (27.0-33.0); MEAN CORPUSCULAR HGB CONC 32.6 g/dL (32.0-36.0); MEAN CORPUSCULAR VOLUME 93.1 fL (79-99); MONOCYTES % (AUTO) 9.8 % (3.0-13.0); NEUTROPHILS % (AUTO) 77.3 % (40.0-77.0); PLATELET COUNT (AUTO) 212 K/uL (130-400); RED BLOOD CELL COUNT(AUTO) 4.78 MIL/uL (4.50-6.20); RED CELL DISTRIBUTION WIDTH 21.1 % (11.0-15.5); WHITE BLOOD COUNT (AUTO) 10.4 K/uL (4.8-10.8)
[2025-01-16 04:53] LABS: CREATININE 1.3 mg/dL (0.5-1.3); POTASSIUM 3.6 mmol/L (3.5-5.1)
[2025-01-16 06:45] VITALS: PULSE 90; RESP 20; RESP 22; O2SAT 98
[2025-01-16 07:45] LABS: ABG OXYGEN SATURATION 98.4 % (94.0-98.0); ABG PCO2 22 mmHg (35-48); ABG PH 7.553 (7.350-7.450); PO2, ARTERIAL BG 102.2 mmHg (83.0-108.0); VENT MODE, BG 2LNC (ROOM AIR)
--- NOTE | 2025-01-16 09:06 | HMCIMG ---
CHEST 1VW HISTORY: Shortness of breath COMPARISON: 01/15/2025 FINDINGS: A frontal projection of the chest was obtained. Mild bilateral pulmonary infiltrates are seen may be related to mild pulmonary vascular congestion with possible superimposed pneumonitis. The heart is borderline enlarged. Pacemaker is seen entering from the left. Aortic calcifications are seen. IMPRESSION: 1. Mild bilateral pulmonary infiltrates are seen may be related to mild pulmonary vascular congestion with possible superimposed pneumonitis.
--- NOTE | 2025-01-16 09:30 | NUR ---
PATIENT LEFT AGAINST MEDICAL ADVICE.
--- NOTE | 2025-01-16 09:57 | NUR ---
DR OLIVAREZ INFORMED OF PATIENT LEAVING AGAINST MEDICAL ADVICE
[2025-01-16] MEDS ORDERED: ALPRAZolam 0.25 MG TABLET PO PRN (10:00)
[2025-01-16 10:04] VITALS: BP 120/93; PULSE 97; RESP 22; TEMP 98.5
--- NOTE | 2025-01-16 10:11 | DS ---
Discharge Summary Hospital Course Summary: 44 year old male with past medical history of CHF with history of AICD/pacemaker placement, history of COPD, diabetes mellitus type, hypertension who presented to the hospital secondary to cough, shortness of breath. Patient states for the past two weeks he has been having productive cough with sputum production he has noted fever, chills at home. He has also noted shortness of breath which is present at rest and with exertion. He states he has been compliant with his medications including Lasix. He denies any lower extremity swelling. He also complains of numbness in the right foot. He states he has a history of seizure and had one episode of seizure around two weeks ago. He is not taking any seizure medications. He started states he lost consciousness but is unable to state if he had any jerking movements. He has not seen a neurologist recently. Denied any falls, syncopal episode. He uses a cane for ambulation denied any sick contacts at home. Due to insurance issues he has not been able to follow up with county coroner. He sees Dr. Serra as outpatient. One month ago he was hospitalized in [place] where he states he needed fluid to be drained from his abdomen. Labs showed white count of 9.2, hemoglobin is 15.3, platelet count was 223k, sodium was 139, potassium was 3.4, creatinine was 1.2, chloride was 106, troponin 9 elevated at 97 01/14/2025 - patient is seen at bedside in room 224, patient is alert, awake, oriented to time place person. He informed that he started having hemoptysis. Patient is currently started on heparin due to apical thrombus found on echocardiogram . Patient is currently tachycardic at heart rate 107, respiratory rate 20, blood pressure 147/95 , saturating at 99% on 2 L nasal cannula. ABG and lactic acid will be repeated. there Is no pedal edema. We will increase the Lasix dose to 40 mg b.i.d.. Awaiting consults recommendations. We will monitor the patient closely . 01/15/2025 - patient seen at bedside in room 224 , patient feeling very anxious about his condition and informs that he is coughing blood. He showed what he coughed out, but it is more of purulent sputum. Patient appeared very anxious and we plan to order Xanax and monitor him. Patient is currently hemodynamically stable, patient complained of continuous chest pain since yesterday and troponin trended to be in normal. will Follow cardiology recommendations, patient needs heart transplant definitively . Patient has been informed that substance abuse will cause more complications . Lactic acid has been downtrending and repeat ABG from yesterday showed pH of 7.4 And pCO2 32 improved compared to admission. Chest x-ray shows persistent lung infiltrates . patient will be monitored closely 01/16/2025 - Patient was informed about his health condition of symptomatic heart failure and pneumonia . Also informed him regarding the definitive management of enrolling to heart transplant , since he has a history of active substance abuse he is not eligible for enrollment . he also has LV apical thrombus and needs the continuous anticoagulation , was informed about it . patient left AMA knowing all the risks involved if he didnt get the appropriate treatment Sr. Logistics Analyst(s): pulmonology , cardiology , neurology Procedure(s): PATIENT: GOLDIE CUNNINGHAM MR#: [id number] : 1980 SEX: M AGE: 44 LOCATION: 2DH ORDER 6 STATUS: ADM IN REPORT#: [id number] SERVICE 4 REASON: shortness of breath/anxiety ORDERING PHYSICIAN: ADRIÁN DAUGHERTY MD PROCEDURE: CXR1VW - CHEST 1VW CHEST 1VW HISTORY: Shortness of breath COMPARISON: 01/15/2025 FINDINGS: A frontal projection of the chest was obtained. Mild bilateral pulmonary infiltrates are seen may be related to mild pulmonary vascular congestion with possible superimposed pneumonitis. The heart is borderline enlarged. Pacemaker is seen entering from the left. Aortic calcifications are seen. IMPRESSION: 1. Mild bilateral pulmonary infiltrates are seen may be related to mild pulmonary vascular congestion with possible superimposed pneumonitis. DICTATED BY: HERBER RAYMOND MD DATE: 01/16/25902 ELECTRONICALLY SIGNED BY: HERBER RAYMOND MD DATE: 01/16/25905 PATIENT: GOLDIE CUNNINGHAM MR#: [id number] : 1980 SEX: M AGE: 44 LOCATION: 2DH ORDER 1 STATUS: ADM IN REPORT#: [id number] SERVICE 0911 REASON: sob ORDERING PHYSICIAN: MIGUEL A OLIVAREZ MD PROCEDURE: CXR2VW - CHEST 2VWS CHEST 2VWS HISTORY: Shortness of breath COMPARISON: None FINDINGS: Frontal and lateral projections of the chest were obtained. There are bilateral pulmonary infiltrates suggestive of pulmonary vascular congestion with possible superimposed pneumonitis. The heart is enlarged. No evidence of aortic calcification is seen. Pacemaker is seen entering from the left. Degenerative changes are seen of the thoracolumbar spine. IMPRESSION: 1. Bilateral pulmonary infiltrates suggestive of pulmonary vascular congestion with possible superimposed pneumonitis. DICTATED BY: HERBER RAYMOND MD DATE: 01/15/25 1211 ELECTRONICALLY SIGNED BY: HERBER RAYMOND MD DATE: 01/15/25 1215 PATIENT: GOLDIE CUNNINGHAM MR#: [id number] : 1980 SEX: M AGE: 44 LOCATION: 2DH ORDER 0809 STATUS: ADM IN REPORT#: [id number] SERVICE 0808 REASON: rule out PE, has large apical thrombus ORDERING PHYSICIAN: JERO TEIXEIRA PUBLIC RELATIONS COUNSELOR PROCEDURE: CHES PE - CT CHEST PE PROTOCOL WWO CONT CT CHEST PE PROTOCOL WWO CONT HISTORY: Pulmonary embolism COMPARISON: None TECHNIQUE: CT angiography of the chest was performed. The study was performed using angiographic technique with maximum intensity projection reconstruction images. Patient was given 75 cc of Omnipaque through intravenous route. FINDINGS: No CT evidence of filling defect is seen to suggest pulmonary embolus. Aorta is not well opacified limiting evaluation. Mild bilateral pulmonary infiltrates are seen. Small right pleural effusion is seen. The heart is enlarged. No evidence of adrenal mass is seen. Degenerative changes of the spine are noted. IMPRESSION: 1. No CT evidence of acute pulmonary embolus is seen. Mild bilateral pulmonary infiltrates are seen. Small right pleural effusion. CT was performed with one or more following dose reduction techniques: automated exposure control, adjustment of the mA and kv according to patient's size, or use of a iterative reconstruction technique. DICTATED BY: HEBRER RAYMOND MD DATE: 01/14/25 1005 ELECTRONICALLY SIGNED BY: HERBER RAYMOND MD DATE: 01/14/25 1010 PATIENT: GOLDIE CUNNINGHAM MR#: [id number] : 1980 SEX: M AGE: 44 LOCATION: 2DH ORDER 1358 STATUS: ADM IN REPORT#: [id number] SERVICE 1357 REASON: assess liver and gall bladder ORDERING PHYSICIAN: LENKA PRESTON MD PROCEDURE: ABDRUQLTD - US ABDOMINAL RUQ\LTD US ABDOMINAL RUQ\E\LTD HISTORY: Pain COMPARISON: None TECHNIQUE: Right upper quadrant abdominal ultrasound study was performed. FINDINGS: Liver measures 15.2 cm. There is right pleural effusion. The visualized portion of the pancreas is within normal limits. Liver is echogenic consistent with liver parenchymal disease. No gallstone is seen. Common duct measures 4 mm. No evidence of gallbladder wall thickening is seen. Right kidney measures 8.4 x 3.9 x 4.7 cm. No hydronephrosis is seen of the right kidney. IMPRESSION: 1. No gallstones or ductal dilatation is seen. Right pleural effusion. 2. No hydronephrosis is seen. DICTATED BY: HERBER RAYMOND MD DATE: 01/14/25 1039 ELECTRONICALLY SIGNED BY: HERBER RAYMOND MD DATE: 01/14/25 1041 PATIENT: GOLDIE CUNNINGHAM MR#: [id number] : 1980 SEX: M AGE: 44 LOCATION: 2DH ORDER 1054 STATUS: ADM IN REPORT#: [id number] SERVICE 1053 REASON: right foot pain ORDERING PHYSICIAN: LENKA PRESTON MD PROCEDURE: FT 2VW RT - FOOT LIMITED 2VWS RT FOOT LIMITED 2VWS RT HISTORY: Right foot pain COMPARISON: None TECHNIQUE: 2 images of the right foot were obtained. FINDINGS: There is no acute displaced fracture or dislocation. Tiny calcaneal spur is seen. Degenerative changes are seen. IMPRESSION: 1. Findings as described above. DICTATED BY: HERBER RAYMOND MD DATE: 01/13/25 1608 ELECTRONICALLY SIGNED BY: HERBER RAYMOND MD DATE: 01/13/25 1611 PATIENT: GOLDIE CUNNINGHAM MR#: [id number] : 1980 SEX: M AGE: 44 LOCATION: EDHIP ORDER STATUS: ADM IN REPORT#: [id number] SERVICE 104 REASON: Right foot parethesias ORDERING PHYSICIAN: LENKA PRESTON MD PROCEDURE: HEAD WO - CT HEAD/BRAIN W/O CONTRAST CT HEAD/BRAIN W/O CONTRAST HISTORY: Right hip prosthesis COMPARISON: None TECHNIQUE: Multiple sequential axial images of the head were obtained from the base of the skull through vertex. Patient was not given contrast through intravenous route. FINDINGS: The ventricles and extraventricular CSF spaces are nondilated for patient's age. There is no midline shift, mass effect or herniation. No acute intracranial bleed is seen. Visualized portion of the paranasal sinuses are grossly within normal limits. IMPRESSION: 1. No acute intracranial bleed is seen. CT was performed with one or more following dose reduction techniques: automated exposure control, adjustment of the mA and kv according to patient's size, or use of a iterative reconstruction technique. DICTATED BY: HERBER RAYMOND MD DATE: 01/13/25 1318 ELECTRONICALLY SIGNED BY: HERBER RAYMOND MD DATE: 01/13/25 1339 PATIENT: GOLDIE CUNNINGHAM MR#: [id number] : 1980 SEX: M AGE: 44 LOCATION: [facility] ORDER 47 STATUS: ADM IN [facility] REPORT#: [id number] SERVICE 1040 REASON: chf exacerbation ORDERING PHYSICIAN: LENKA PRESTON MD PROCEDURE: ECHO CMP - ECHO 2-D COMPLETE APPROVED REPORT EXAM: Two-dimensional and M-mode echocardiogram with Doppler and color Doppler. INDICATION ICD: chf exacerbation 2D Dimensions RVDd 5.2 cm LVEF(%) 11.9 (>50%) LVED Vol(simp.) 195.0 mL IVSd 0.8 (0.7-1.1cm) FS(%) 5 % LVES Vol(simp.) 173.0 mL LVDd 7.3 (3.8-5.6cm) LA (2D) 4.1 (1.6-4.0cm) LVEF(%, simp.) 11 % PWd 1.2 (0.7-1.1cm) Ao Root(2D) 3.3 (2.0-3.7cm) LA ESV INDEX (BP) 55.26 mL/m2 LVDs 6.9 (2.5-4.0cm) LVOT diam 2.3 (1.8-2.4cm) IVC diam 2.2 cm Deformation Strain Apical 4 -1.8 % Apical 2 -2.0 % Apical 3 -3.1 % Global Strain -2.3 % M-Mode Dimensions EPSS 2.9 cm LA (MM) 5.2 (1.6-4.0cm) Ao Root(MM) 2.8 (2.0-3.7cm) Aortic Valve AoV Vmax 0.7 m/s Ao Peak GR 2.2 mmHg LVOT Vmax 0.9 m/s AoV VTI 0.1 m Ao Mean GR 1.3 mmHg LVOT VTI 0.12 m DEEPAK (VMAX) 4.89 cm2 DEEPAK (VTI) 4.5 cm2 Mitral Valve MV E Vmax 73.3 cm/s DECEL Time 113 ms MV A Vmax 18.5 cm/s P 1/2 T 46 ms E/A ratio 4.0 MVA (PHT) 4.8 cm2 TDI E/E' Medial 15.3 E/E' Lateral 29.1 Medial E' Peak V 4.78 cm/s Lateral E' Peak V 2.52 cm/s Tricuspid Valve TR Vmax 2.4 m/s RAP (EST) 15 mmHg RVSP 39.8 mmHg TR Peak GR 24.8 mmHg Left Ventricle The left ventricle is severely dilated. Severe hypokinesis There is normal left ventricular wall thickness. LVEF is <20%. Large apical thrombus is present, 2.0 x 2.4 cm. Stage III diastolic dysfunction. Right Ventricle The right ventricle is severely dilated. Right ventricular systolic function is moderately reduced. Atria The left atrium is severely dilated. The right atrium is severely dilated. Aortic Valve The aortic valve is normal in structure and function. No aortic regurgitation is present. There is no aortic valvular stenosis. Mitral Valve The mitral valve is normal in structure. There is mild mitral valve regurgitation noted. There is no mitral valve stenosis. Tricuspid Valve The tricuspid valve is normal in structure and function. There is mild tricuspid valve regurgitation noted. Pulmonic Valve The pulmonary valve is normal in structure. There is no pulmonic valvular regurgitation. Great Vessels The aortic root is normal in size. The inferior vena cava is mildly dilated with a decrease in inspiratory collapse. Pericardium Small anterior pericardial effusion. Conclusion LVEF is <20%. Stage III diastolic dysfunction. There is normal left ventricular wall thickness. The left ventricle is severely dilated. Severe hypokinesis Large apical thrombus is present, 2.0 x 2.4 cm. The right ventricle is severely dilated. Right ventricular systolic function is moderately reduced. The left atrium is severely dilated. The right atrium is severely dilated. There is mild mitral valve regurgitation noted. There is mild tricuspid valve regurgitation noted. Normal pulmonary pressures NO effusion Study quality was adequate DICTATED BY: ORTIZ RAPP MD DATE: 01/13/25 1120 ELECTRONICALLY SIGNED BY: ORTIZ RAPP MD DATE: 01/13/25 190 PATIENT: GOLDIE CUNNINGHAM MR#: [id number] : 1980 SEX: M AGE: 44 LOCATION: EDHIP ORDER 1048 STATUS: ADM IN [facility] REPORT#: [id number] SERVICE 1040 REASON: generalized abdominal pain ORDERING PHYSICIAN: LENKA PRESTON MD PROCEDURE: ABD PEL WO - CT ABDOMEN/PELVIS W/O CONTRAST CT ABDOMEN/PELVIS W/O CONTRAST HISTORY: Generalized abdominal pain COMPARISON: None TECHNIQUE: Multiple sequential axial images of the abdomen and pelvis were obtained from the dome of the diaphragm through symphysis pubis. Patient was not given contrast through intravenous route. Oral contrast was not given. FINDINGS: There is right pleural effusion. There are bilateral pulmonary infiltrates right more than left. Degenerative changes of the thoracolumbar spine are present. The heart is not enlarged. Liver is enlarged measuring 18 cm. Gallbladder is distended. Nonspecific mesenteric fat stranding is seen. The liver, spleen, adrenal glands and pancreas are unremarkable. There is no evidence of hydronephrosis bilaterally. No evidence of renal stone is seen. There is normal lordosis. Fecal material is seen in the colon. There are normal size retroperitoneal and mesenteric lymph nodes. No ascites is seen. Atherosclerotic changes are present. Pelvic sidewalls are symmetric bilaterally. Bladder is well distended without wall thickening. IMPRESSION: 1. Right pleural effusion. Bilateral pulmonary infiltrates with volume of the left. Large amount of fecal material is seen in the colon. Distended gallbladder. Nonspecific mesenteric fat stranding. Mild diverticulosis. CT was performed with one or more following dose reduction techniques: automated exposure control, adjustment of the mA and kv according to patient's size, or use of a iterative reconstruction technique. DICTATED BY: HERBER RAYMOND MD DATE: 01/13/25 131 ELECTRONICALLY SIGNED BY: HERBER RAYMOND MD DATE: 01/13/251338 PATIENT: GOLDIE CUNNINGHAM MR#: [id number] : 1980 SEX: M AGE: 44 LOCATION: EDHIP ORDER 9 STATUS: ADM IN REPORT#: [id number] SERVICE 8 REASON: sob ORDERING PHYSICIAN: ARISTIDES HENRY MD PROCEDURE: CXR1VW - CHEST 1VW CHEST 1VW HISTORY: Shortness of breath COMPARISON: 07/23/2024 FINDINGS: A frontal projection of the chest was obtained. There are bilateral pulmonary infiltrates suggestive of pulmonary vascular congestion with possible superimposed pneumonitis. The heart is borderline enlarged. Pacemaker is seen entering from the left. No evidence of aortic calcification is seen. IMPRESSION: 1. Bilateral pulmonary infiltrates are seen suggestive of pulmonary vascular congestion with possible superimposed pneumonitis. Interval worsening is seen. DICTATED BY: HERBER RAYMOND MD DATE: 01/13/25 192 ELECTRONICALLY SIGNED BY: HERBER RAYMOND MD DATE: 01/13/25 465 Assessment/Plan: ASSESSMENT: Community acquired pneumonia POA Acute hypoxic respiratory failure secondary to community-acquired pneumonia Suspected acute on chronic CHF exacerbation with systolic and diastolic dysfunction with EF of 30-35% Troponin elevation likely in setting of type 2 CT Medical noncompliance History of cocaine use Hypertension Diabetes mellitus type 2 COPD Abdominal Pain Right foot pain and paresthesias History of Seizures not on medications Acute anxiety Sepsis Home Medications: Active Scripts Ipratropium [place] (Atrovent Hfa) 17 Mcg/Actuation Hfa.aer.ad, 2 PUFF IH QID PRN for SOB/WHEEZING for 7 Days, #20 GM 0 Refills Prov:ARISTIDES HENRY MD 07/24/24 Reported Medications Docusate Sodium (Docusate Sodium) 100 Mg Tablet, 1 TAB PO BID for 30 Days, #60 TAB 0 Refills 01/14/25 Carvedilol (Carvedilol) 12.5 Mg Tablet, 1 TAB PO BID for 30 Days, #60 TAB 0 Refills 01/14/25 Lisinopril (Lisinopril) 10 Mg Tablet, 1 TAB PO DAILY for 30 Days, #30 TAB 0 Refills 01/14/25 Atorvastatin Calcium (Atorvastatin Calcium) 20 Mg Tablet, 1 TAB PO HS for 30 Days, #30 TAB 0 Refills 01/14/25 Lisinopril (Lisinopril) 10 Mg Tablet, 20 MG PO BID for 30 Days, #30 TAB 0 Refills 06/22/24 Amiodarone HCl (Amiodarone HCl) 200 Mg Tablet, 200 MG PO BID for 30 Days, #30 TAB 0 Refills 06/22/24 Furosemide (Furosemide) 40 Mg Tablet, 1 TAB PO DAILY for 30 Days, #30 TAB 0 Refills 06/22/24 Dapagliflozin Propanediol (Farxiga) 10 Mg Tablet, 1 TAB PO DAILY for 30 Days, #30 TAB 0 Refills 06/22/24 Time spent arranging discharge: 1-30 minutes ATTESTATION BY PHYSICIAN I have seen and examined the patient. I reviewed the documentation, medical decision making, and treatment plan as noted by the resident provider above. I agree with the findings and plan of care. Matt Snell MD, KEERTI K MD Jan 16, 2025 10:11
--- NOTE | 2025-01-16 12:34 | NUR ---
D/c before RD could assess Addendum: 01/16/25 at [address] Amended: Links added.
--- NOTE | 2025-01-16 20:00 | PN ---
[facility] PROGRESS NOTE Late entry for services provided 01/16/2025 at 9:52 a.m. Date Patient Seen: Jan 16, 2025 Time of Visit: 09:52 Supervising Physician: Dr. Wynn PROBLEM LIST: Acute hypoxemic respiratory failure Community acquired pneumonia Large apical thrombus Acute combined CHF, LVEF 30-35% Troponin elevation AICD status Diabetes mellitus type Hypertension COPD without exacerbation Seizures Polysubstance abuse (+) THC, cocaine Medical noncompliance INTERVAL HISTORY: 01/15/2025: At the time of my evaluation, the patient was sitting up to the bedside chair. The staff nurse reports no acute events overnight. Patient's main complaint is pain. He remains on a nasal cannula 2 L and vital signs are unremarkable. Laboratory data showed a elevated WBC today 13.4. H and H and platelet count are unremarkable. Chemistry panel was unremarkable. Chest imaging obtained showed mild pulmonary vascular congestion and infiltrates. Currently, the patient remains on diuresis with Lasix 40 b.i.d. and is on antibiotic coverage with Zosyn on doxy combination. No other complaint. 01/16/2025: At the time of my evaluation, the patient was sitting up to the bedside chair. Vital signs today were unremarkable. Laboratory data showed no major changes except for a elevated BNP of 1650. Chest x-ray for review today, showed mild vascular congestion. Currently, the patient remains on diuretic therapy with IV Lasix. He is also on antibiotic therapy with doxycycline and Zosyn. No other complaint. REVIEW OF SYSTEMS: 12 point ROS reviewed with patient. Pertinent positives mentioned above. Otherwi se negative. PHYSICAL EXAM: GENERAL: alert, weak, awake oriented x 3 HEENT: EOMI, Sclera non icteric, moist mucosa NECK: Supple, no JVD, trachea midline LUNGS: Clear breath sounds bilaterally. No wheezes HEART: Regular rate and rhythm. Normal S1 and S2, without murmurs ABD: Abdomen soft, nontender. Bowel sounds present EXT: No clubbing cyanosis or edema NEURO: Alert and oriented to person, follows commands LABS: Hematology Labs: Test 01/16/25 03:56 Range/Units White Blood Count 10.4 4.8-10.8 K/uL Red Blood Count 4.78 4.50-6.20 MIL/uL Hemoglobin 14.5 14.0-18.0 g/dL Hematocrit 44.5 42-54 % Mean Corpuscular Volume 93.1 79-99 fL Mean Corpuscular Hemoglobin 30.3 27.0-33.0 pg Mean Corpuscular Hemoglobin Concent 32.6 32.0-36.0 g/dL Red Cell Distribution Width 21.1 H 11.0-15.5 % Platelet Count 212 130-400 K/uL Mean Platelet Volume 13.1 H 7.5-10.5 fL Immature Granulocyte % (Auto) 0.7 0-1 % Neutrophils (%) (Auto) 77.3 H 40.0-77.0 % Lymphocytes (%) (Auto) 11.6 L 21.0-51.0 % Monocytes (%) (Auto) 9.8 3.0-13.0 % Eosinophils (%) (Auto) 0.3 0.0-8.0 % Basophils (%) (Auto) 0.3 0.0-5.0 % Neutrophils # (Auto) 8.0 H 1.8-7.7 K/uL Lymphocytes # (Auto) 1.2 1.0-4.8 K/uL Monocytes # (Auto) 1.0 0.1-1.0 K/uL Eosinophils # (Auto) 0.03 0.00-0.70 K/uL Basophils # (Auto) 0.03 0.00-0.20 K/uL Absolute Immature Granulocyte (auto 0.07 0-1 K/uL Nucleated Red Blood Cells 0.0 0.0-0.19 % Chemistry Labs: Test 01/16/25 03:56 01/15/25 11:06 01/15/25 04:09 Range/Units Sodium Level 137 136-145 mmol/L Potassium Level 3.6 3.5-5.1 mmol/L Chloride Level 103 101-111 mmol/L Carbon Dioxide Level 25 21-32 mmol/L Blood Urea Nitrogen 35 H 7-18 mg/dL Creatinine 1.3 0.5-1.3 mg/dL Glomerular Filtration Rate Calc 69 >90 mL/min Random Glucose 149 H 70-105 mg/dL Total Calcium 8.7 8.5-10.1 mg/dL B-Type Natriuretic Peptide 1650 H 0-100 pg/mL Lactic Acid Level 1.7 0.8-2.5 mmol/L Troponin I High Sensitivity 74 4-75 ng/L Coagulation Labs: Test 6/27/25 08:58 Range/Units Activated Partial Thromboplast Time 55.2 H 26.3-35.5 [facility] / RADIOLOGY RESULTS: [ ] Plan: 01/15/2025: For now, going to continue current management for the patient. Continue oxygen supplementation, continue antibiotic coverage on diuretic therapy. We will follow the recommendation of the fancy needleworker's whose plan is to manage conservatively. We will repeat surveillance labs in the morning. I discussed the findings and plan for further management with the patient. We will monitor the patient's progress and response to management. We will continue to provide general supportive care, GI and DVT prophylaxis. Further orders per attending MD and hospital course. 01/16/2025: For now, we are going to continue current management for the patient. Per the staff nurse, the plan is for discharge home today. From the pulmonary standpoint, no objection for discharge home today. Appreciate the opportunity provided to participate in patient's care. We will remain available for future needs. Disposition: Per primary team Other: Patient was seen and case discussed with kathryn HUTSON. Plan of care was discussed and agreed upon. SHIRA BELL NP Jan 16, 2025 20:00
--- NOTE | 2025-01-19 17:37 | NUR ---
Transitional Phone Call Spoke with patient, states "I'm not doing well, not breathing well, not doing well." Referred to cardiology - Dr Davalos or pulmonology - Dr. Abebe Wynn but if symptoms change and worsen call 911 or visit the nearest emergency room; verbalized understanding. Requests the name of neurology - Dr. Kike Dawson. States left a black metal cane that retracts in the emergency room, notified security, security will contact patient.
== END 2025-01-16 09:45 | disposition left against medical advice (07) | DRG 871 ==
LOC: EDH 08:21 → EDHIP 12:45 → 2DH 16:00
PROVIDERS: ADMIT Internal Medicine; ATTEND Internal Medicine
DX: A41.9 Sepsis, unspecified organism (principal); I21.A1 Myocardial infarction type 2; J18.9 Pneumonia, unspecified organism; J96.01 Acute respiratory failure with hypoxia; I50.43 Acute on chronic combined systolic (congestive) and diastolic (congestive) heart failure; I13.0 Hypertensive heart and chronic kidney disease with heart failure and stage 1 through stage 4 chronic kidney disease, or unspecified chronic kidney disease; I47.20 Ventricular tachycardia, unspecified; I31.39 Other pericardial effusion (noninflammatory); J44.0 Chronic obstructive pulmonary disease with (acute) lower respiratory infection; E11.22 Type 2 diabetes mellitus with diabetic chronic kidney disease; E78.00 Pure hypercholesterolemia, unspecified; F12.10 Cannabis abuse, uncomplicated; F14.10 Cocaine abuse, uncomplicated; F41.9 Anxiety disorder, unspecified; Z96.641 Presence of right artificial hip joint; Z20.822 Contact with and (suspected) exposure to COVID-19; Z74.09 Other reduced mobility; Z53.29 Procedure and treatment not carried out because of patient's decision for other reasons; I51.3 Intracardiac thrombosis, not elsewhere classified; N18.9 Chronic kidney disease, unspecified; Z59.71 Insufficient health insurance coverage; Z86.711 Personal history of pulmonary embolism; Z91.199 Patient's noncompliance with other medical treatment and regimen due to unspecified reason; I25.2 Old myocardial infarction; Z95.5 Presence of coronary angioplasty implant and graft; Z95.810 Presence of automatic (implantable) cardiac defibrillator; Z79.899 Other long term (current) drug therapy
CPT/HCPCS: 36415; 36600; 70450; 71045; 71046; 71270; 73620; 74176; 76376; 76705; 80048; 80305; 81001; 82550; 82803; 83036; 83605; 83735; 83880; 84145; 84443; 84484; 85025; 85610; 85730; 86140; 87040; 87086; 87635; 87804; 87880; 93005; 93306; 93356; 94640; 96374; 99285; G0378; J0456; J0696; J1644; J1938; J2270; J2470; J2543; J2919; J3475; J3480; J3490; Q9967